=== PATIENT | female | born 1970 | race Caucasian/White ===

== ENCOUNTER → 2019-09-24 17:40 | Outpatient (CLI) | payer OTHER, SELFPAY ==
--- NOTE | ~2019-09-24 | XR_ITS ---
XR hand RT min 3V 09/24/2019 17:54 Indication: Right hand pain Procedure: 4 views right hand Comparison: No prior studies for comparison. Findings: No fracture, subluxation or dislocation. No erosive changes. No significant degenerative change. No r adiopaque foreign bodies. No focal soft tissue abnormality is. Impression: 1: No significant bone or joint abnormality. Reviewed, dictated and finalized at location A. NSED PHYSICAL THERAPIST ASSISTANT Impression: 1: No significant bone or joint abnormality.
== END ==
PROVIDERS: PCP Physician Assistant; Visit Provider Physician Assistant
DX: M79.641 Pain in right hand (principal)
CPT/HCPCS: 73130

== ENCOUNTER 2021-01-27 09:17 | Outpatient (CLI) | payer OTHER, SELFPAY ==
--- NOTE | ~2021-01-27 | US_ITS ---
EXAMINATION: US right upper quadrant EXAM DATE: 01/27/2021 10:01 INDICATION: R74.8 - Abnormal levels of other serum enzymes. TECHNIQUE: Multiple grayscale and Doppler images of the abdomen right upper quadrant were obtained (b y a technologist who performed the scan) and subsequently reviewed. Comparison is made to prior exami nation from 05/14/2018. FINDINGS: The pancreatic head and body are normal in appearance. The pancreatic tail is not visualized. There is echogenic liver parenchyma, hepatic steatosis. No focal liver lesions. There is no evidence of intrahepatic biliary duct dilation. Portal venous flow was seen in the hepatopedal, normal direction and has normal Doppler waveform. Incidental right renal 3 cm cyst. No right-sided hydronephrosis. Common bile duct measures 6 mm, which is normal. The gallbladder fossa is unremarkable. IMPRESSION: 1. Hepatic steatosis. Reviewed, dictated and finalized at location B. IMPRESSION: 1. Hepatic steatosis.
== END 2021-01-27 09:18 | disposition home or self-care (01) ==
PROVIDERS: PCP Family Medicine; Visit Provider Physician Assistant
DX: R74.8 Abnormal levels of other serum enzymes (principal); K76.0 Fatty (change of) liver, not elsewhere classified
CPT/HCPCS: 76705

== ENCOUNTER → 2021-02-13 09:22 | Outpatient (CLI) | payer OTHER, SELFPAY ==
--- NOTE | ~2021-02-13 | XR_ITS ---
XR_CERV2-3V_CR DATE: 02/13/2021 10:00 INDICATION: Neck pain TECHNIQUE: Standing AP, lateral, open-mouth views COMPARISON: None FINDINGS: C1 and C2 are normally aligned and the odontoid process is intact. No fracture or dislocati on or locked facet or prevertebral soft tissue swelling. There is minimal anterolisthesis at C3-4. There is moderate degenerative disc disease and minimal retrolisthesis at C4-5. Moderately severe degenerative disc disease and mild retrolisthesis at C5-6. Moderate degenerative disc disease and mild retrolisthesis at C6-7. Prominent uncovertebral joint spurring is noted on the right at C5-6 IMPRESSION: Multilevel degenerative disc disease, with associated minimal to mild retrolisthesis at C 4-5, C5-6, C6-7 Minimal anterolisthesis at C3-4 Reviewed, dictated and finalized at Location A. Reviewed, dictated and finalized at location A. IMPRESSION: Multilevel degenerative disc disease, with associated minimal to mi ld retrolisthesis at C4-5, C5-6, C6-7 Minimal anterolisthesis at C3-4
== END ==
PROVIDERS: PCP Family Medicine; Visit Provider Physician Assistant
DX: M50.321 Other cervical disc degeneration at C4-C5 level (principal); M43.12 Spondylolisthesis, cervical region
CPT/HCPCS: 72040

== ENCOUNTER 2021-04-28 07:54 | Outpatient (CLI) | payer OTHER, SELFPAY ==
--- NOTE | ~2021-04-28 | MR_ITS ---
EXAMINATION: MR cervical spine wo con EXAM DATE: 04/28/2021 08:39 INDICATION: M54.2 - Cervicalgia. TECHNIQUE: Multi-sequential, multiplanar MR images of the cervical spine were obtained without contra st. Axial T2, axial T2 MERGE sequence. Sagittal T1, T2, T2 fat saturation images also obtained. Cor relation is made to Cervical x-ray 02/13/2021 FINDINGS: There is mild to moderate reversal of midcervical lordosis. There is moderate disc disease at C5-6, mild to moderate at C6-7. There is 2 mm retrolisthesis at these 2 levels. The spinal cord s ignal intensity and intrinsic morphology is normal. Cervicomedullary junction is normal in appearance . There are no suspicious marrow signal abnormalities. Paraspinal soft tissue is unremarkable. Level by level evaluation: C2-C3: Disc does not extend beyond the endplate margin. Uncovertebral joint arthropathy: Mild bilateral. Facet joint arthropathy: Mild bilateral. Neural foraminal stenosis: No stenosis. Central canal stenosis: No stenosis. C3-C4: There is a minimal diffuse disc bulge. Uncovertebral joint arthropathy: Mild to moderate left, mild right. Facet joint arthropathy: Severe left, moderate right. Neural foraminal stenosis: Moderate left, mild right. Central canal stenosis: No stenosis. C4-C5: There is a mild diffuse disc bulge. Uncovertebral joint arthropathy: Moderate left, mild to moderate right. Facet joint arthropathy: Moderate bilateral. Neural foraminal stenosis: Moderate left, mild to moderate right. Central canal stenosis: No stenosis. C5-C6: There is a mild diffuse disc bulge. Uncovertebral joint arthropathy: Severe right, moderate left. Facet joint arthropathy: Moderate right, mild to moderate left. Neural foraminal stenosis: Moderate to severe right, mild to moderate left. Central canal stenosis: Mild. C6-C7: There is a mild diffuse disc bulge. Uncovertebral joint arthropathy: Moderate to severe left, moderate right. Facet joint arthropathy: Moderate bilateral. Neural foraminal stenosis: Moderate to severe left, mild to moderate right. Central canal stenosis: Mild. C7-T1: Disc does not extend beyond the endplate margin. Uncovertebral joint arthropathy: None. Facet joint arthropathy: Mild bilateral. Neural foraminal stenosis: No stenosis. Central canal stenosis: No stenosis. IMPRESSION: 1. Significant mid cervical neural foraminal stenosis as detailed above. Reviewed, dictated and finalized at location B.
== END 2021-04-28 07:55 | disposition home or self-care (01) ==
LOC: ANHIMG 07:56
PROVIDERS: PCP Family Medicine; Visit Provider Physician Assistant
DX: M54.2 Cervicalgia (principal); M48.02 Spinal stenosis, cervical region
CPT/HCPCS: 72141

== ENCOUNTER 2021-11-24 16:51 | Outpatient (CLI) | payer OTHER, SELFPAY ==
--- NOTE | ~2021-11-24 | XR_ITS ---
EXAMINATION: XR chest 2V DATE: 11/24/2021 17:07 INDICATION: Hemoptysis. Wheezing. TECHNIQUE: Frontal and lateral views of the chest were obtained. COMPARISON: Chest 2 views 04/18/2018 FINDINGS: The lungs are hyperexpanded with lucencies in the upper lungs, consistent with emphysema. T here is mild atelectasis in the mid and lower lung zones. There is a mass overlying the left hilum on the frontal view that may be in superior segment left lower lobe on the lateral view. No pleural eff usion or pneumothorax. The heart size is normal. There are surgical clips in the abdomen. IMPRESSION: 1. Left lung mass suspicious for primary bronchogenic carcinoma. Chest CT with contrast is recommende d. 2. Emphysema. Reviewed, dictated and finalized at location A. IMPRESSION: 1. Left lung mass suspicious for primary bronchogenic carcinoma. Chest CT with contrast is recommended. 2. Emphysema.
== END 2021-11-24 16:52 | disposition home or self-care (01) ==
PROVIDERS: PCP Family Medicine; Visit Provider Physician Assistant
DX: J43.9 Emphysema, unspecified (principal); R06.2 Wheezing; R04.2 Hemoptysis
CPT/HCPCS: 71046

== ENCOUNTER 2021-11-29 14:50 | Outpatient (CLI) | payer OTHER, SELFPAY ==
--- NOTE | ~2021-11-29 | CT_ITS ---
EXAMINATION:CT diagnostic chest w con DATE: 11/29/2021 15:06 INDICATION: Lung mass. Hemoptysis. Wheezing. Tobacco use. TECHNIQUE: Computed tomography (CT) of the chest was performed with 75 mL Omnipaque 350 intravenous c ontrast. Automated exposure control and iterative reconstruction technique were employed. The dose-le ngth product (DLP) was 152.49 mGy-cm. COMPARISON: Chest 2 views 11/24/2021 FINDINGS: There is moderate emphysema. There is mild atelectasis bilaterally. There are centrilobular nodules and tree-in-bud opacities in left upper lobe. There is a cavitary 17 mm nodule in left upper lobe. There is left hilar lymphadenopathy with occlusion of the bronchus to apicoposterior segment l eft upper lobe. There is mild mediastinal lymphadenopathy. There are mild groundglass opacities in le ft lower lobe. No pleural effusion. The heart size is normal. No pericardial effusion. There is diffu se hepatic steatosis. Calcifications in the pancreas and pancreatic duct dilatation are consistent wi th chronic pancreatitis. There are cysts in the kidneys measuring up to 2.2 cm on the right. There is a 4 mm stone in right kidney. There is a 3 mm stone in left kidney. There is moderate thoracic spond ylosis. IMPRESSION: 1. 17 mm cavitary nodule in left lung upper lobe, consistent with primary bronchogenic carcinoma. 2. Left hilar and mediastinal lymphadenopathy, consistent with metastatic disease. Consider bronchosc opy for diagnosis. 3. Mild postobstructive pneumonia in left upper lobe. 4. Moderate emphysema. Reviewed, dictated and finalized at location A. IMPRESSION: 1. 17 mm cavitary nodule in left lung upper lobe, consistent with primary bronc hogenic carcinoma. 2. Left hilar and mediastinal lymphadenopathy, consistent with metastatic disea se. Consider bronchoscopy for diagnosis. 3. Mild postobstructive pneumonia in left upper lobe. 4. Moderate emphysema.
== END 2021-11-29 14:51 | disposition home or self-care (01) ==
LOC: ANHIMG 14:51
PROVIDERS: PCP Family Medicine; Visit Provider Physician Assistant
DX: R06.2 Wheezing (principal); R04.2 Hemoptysis; Z72.0 Tobacco use; J43.9 Emphysema, unspecified; J18.9 Pneumonia, unspecified organism
CPT/HCPCS: 71260; Q9967

== ENCOUNTER 2022-05-14 12:40 | Inpatient (IN) | payer OTHER, SELFPAY ==
[2022-05-14] VITALS (17 sets, daily range): BP systolic 108–156; BP diastolic 50–73; PULSE 69–126; RESP 16–24; TEMP 36.5–38.7; O2SAT 94–100
--- NOTE | ~2022-05-14 | XR_ITS ---
EXAMINATION: XR abdomen/kub 1V DATE: 05/15/2022 11:06 INDICATION: Ureteral stent placement. TECHNIQUE: A supine view of the abdomen was obtained. COMPARISON: Abdomen radiographs 11/01/2018 FINDINGS: There are no dilated loops of bowel. Surgical clips in the right upper quadrant are likely from cholecystectomy. There is a phlebolith in left pelvis. There are bilateral internal ureteral stefan nts in expected positions. IMPRESSION: 1. Bilateral internal ureteral stents in expected positions. Reviewed, dictated and finalized at location A.
--- NOTE | ~2022-05-14 | XR_ITS ---
EXAMINATION: XR chest 2V DATE: 05/14/2022 14:04 INDICATION: Fever. TECHNIQUE: Frontal and lateral views of the chest were obtained. COMPARISON: Chest 2 views 11/24/2021, chest CT 05/14/22 FINDINGS: The lungs are hyperexpanded with lucencies, consistent with emphysema. There are airspace o pacities in superior segment left lower lobe. No pleural effusion or pneumothorax. The heart size is normal. There is a right internal jugular port with tip at superior cavoatrial junction. IMPRESSION: 1. Airspace opacities in superior segment left lower lobe, consistent with radiation pneumonitis vers us pneumonia. 2. Emphysema. Reviewed, dictated and finalized at location A. IMPRESSION: 1. Airspace opacities in superior segment left lower lobe, consistent with radi ation pneumonitis versus pneumonia. 2. Emphysema.
--- NOTE | ~2022-05-14 | CT_ITS ---
EXAMINATION: CTA chest PE protocol DATE: 05/14/2022 14:02 INDICATION: Fever. Dyspnea. TECHNIQUE: Computed tomography angiography (CTA) of the chest was performed with 100 mL Omnipaque-350 intravenous contrast timed to evaluate the pulmonary arteries. Coronal maximum intensity projection 3D-reconstructions were created by the technologist. Automated exposure control and iterative reconst ruction technique were employed. The dose-length product was 173.23 mGy-cm. COMPARISON: Chest CT 11/29/2021 FINDINGS: There is moderate emphysema. There is 11 mm nodule in left upper lobe. There are patchy air space and groundglass opacities in the upper lobes and left lower lobe. No pleural effusion. There is a right chest port with tip at superior cavoatrial junction. The heart size is normal. No pericardia l effusion. There is no pulmonary embolus. There is mild mediastinal and left hilar lymphadenopathy. There are changes of cholecystectomy. There is a right internal ureteral stent in expected position. There is a 1.6 cm cyst in right kidney. Calcifications in the pancreas are consistent with chronic pa ncreatitis. There is moderate thoracic spondylosis. IMPRESSION: 1. No pulmonary embolus. 2. 11 mm nodule in left lung upper lobe with improvement from 17 mm on 11/29/2021, consistent with prim destiny bronchogenic carcinoma. 3. Patchy airspace and groundglass opacities in the upper lobes and left lower lobe, consistent with radiation pneumonitis versus pneumonia. 4. Moderate emphysema. 5. Improved mild mediastinal and left hilar lymphadenopathy, consistent with metastatic disease. Reviewed, dictated and finalized at location A. IMPRESSION: 1. No pulmonary embolus. 2. 11 mm nodule in left lung upper lobe with improvement from 17 mm on 11/29/2021 , consistent with primary bronchogenic carcinoma. 3. Patchy airspace and groundglass opacities in the upper lobes and left lower lobe, consistent with radiation pneumonitis versus pneumonia. 4. Moderate emphysema. 5. Improved mild mediastinal and left hilar lymphadenopathy, consistent with me tastatic disease.
--- NOTE | 2022-05-14 13:00 | ECG_ITS ---
Measurements Intervals Edna Rate: 85 P: 54 CO: 152 QRS: 25 QRSD: 92 T: 74 QT: 380 QTc: 452 Interpretive Statements SINUS RHYTHM CANNOT RULE OUT SEPTAL INFARCT, AGE INDETERMINATE BASELINE ARTIFACT- I, II, III, AVR, AVL, AVF, V2-V3 ABNORMAL ECG NO PREVIOUS ECG AVAILABLE FOR COMPARISON Electronically Signed On 05-14-2022 17:49:41 CDT by Jose Saavedra D.O.
--- NOTE | 2022-05-14 13:03 | ED.GENADULT ---
HPI - General Adult General Chief complaint: Fever Stated complaint: Fever Time Seen by Provider: 05/14/22 12:48 History of Present Illness HPI narrative: This is a 51-year-old female presenting to ED with a chief complaint of fever. Patient notes that she has been having a progressive cough over the last several days. This morning she developed fever, chills, difficulty breathing and chest pain. The patient has been treated with Imfinzi which is an immunomodulator for breast cancer. She has also been having dysuria and hematuria as the patient recently underwent renal stent placement for kidney stones. Related Data Home Medications Medication Instructions Recorded Confirmed cholecalciferol (vitamin D3) 50 2,000 unit PO DAILY 09/23/19 02/23/22 mcg (2,000 unit) capsule (Vitamin D3) multivit-iron 18 mg-folic acid 400 tablet PO 09/23/19 02/23/22 mcg-calcium 500 mg-minerals tablet (One-A-Day Womens Formula) Allergies Allergy/AdvReac Type Severity Reaction Status Date / Time morphine Allergy Unknown Hives Verified 02/23/22 14:58 Review of Systems Review of Systems: CONSTITUTIONAL: Denies night sweats. EYES: No eye pain ENT: Denies rhinorrhea CARDIOVASCULAR: Denies palpitations RESPIRATORY: Denies hemoptysis GASTROINTESTINAL: Denies hematemesis GENITOURINARY: Admits hematuria. SKIN: Denies rash MUSCULOSKELETAL: Denies myalgia. NEUROLOGIC: Denies weakness. PSYCHIATRIC: Denies delusions [facility] Past Medical History Medical History Acquired hypothyroidism MAYA (generalized anxiety disorder) HLD (hyperlipidemia) Seborrheic keratosis Spinal stenosis Tobacco use Type 2 diabetes mellitus without complications Family History Family History Father Carcinoma of colon Family history of Alzheimer's disease Family history of malignant neoplasm of urinary bladder Diabetes mellitus Grandparent Carcinoma of colon Family history of malignant neoplasm of brain Diabetes mellitus Mother Family history of malignant neoplasm of ovary Social History Social History Social History: Smoking packs per day: 1 Smoking cigarettes per day: 20.0 Years smoked: 30 Smoking pack-years: 30.00 Smoking status: Current every day smoker Tobacco type: cigarettes Second hand tobacco smoke exposure: Yes Alcohol intake: current Drinks per week: 3 Substance use: never Substance use type: does not use Gender identity (if verbalized by the patient): Female Sexual Orientation (if Verbalized by the Patient): Straight or Heterosexual Exam Narrative: APPEARANCE: patient is lying in bed. She appears very anxious. Head atraumatic. EYES: PERRLA/EOMI, NOSE: Normal no drainage NECK: Supple, Trachea midline RESPIRATORY: Lungs have scattered rhonchi. Patient is tachypneic. CARDIOVASCULAR: S1S2 appreciated ABDOMINAL: Soft, nontender, nondistended, MUSCULOSKELETAl: No obvious deformities NEURO: Alert. Moving 4/4 extremities SKIN:: Warm, dry. Normal color PSYCHIATRIC: Normal affect Course Vital Signs Vital signs: Vital Signs Temperature 101.7 F H 05/14/22 12:42 Pulse Rate 126 H 05/14/22 12:42 Respiratory Rate 20 05/14/22 12:42 Blood Pressure 156/72 H 05/14/22 12:42 Pulse Oximetry 100 05/14/22 12:42 Oxygen Delivery Room Air 05/14/22 12:42 Temperature 98.8 F 05/14/22 16:10 Pulse Rate 75 05/14/22 16:10 Respiratory Rate 20 05/14/22 16:10 Blood Pressure 112/61 05/14/22 16:10 Pulse Oximetry 97 05/14/22 16:10 Oxygen Delivery Room Air 05/14/22 12:42 Medical Decision Making MDM Narrative Medical decision making narrative: This is a 51-year-old female presenting ED a chief complaint of fever. She has multiple risk factors for different serious infections including using immuno
[2022-05-14 13:19] LABS: Basophils Percent Auto 0.3 % (0.2-1.2); Eosinophils Absolute Auto 0.1 K/mm3 (0-0.3); Eosinophils Percent Auto 1.1 % (0-4.4); Hemoglobin 9.9 g/dL (12.0-15.0); Immature Granulocyte Absolute 0.04 K/mm3 (0.00-0.031); Immature Granulocyte Percent A 0.4 % (0-0.5); Lymphocytes Absolute Auto 0.43 K/mm3 (0.9-3.2); Lymphocytes Percent Auto 4.7 % (18.3-44.2); Mean Corpuscular Hemoglobin 33.8 pg (26-34); Mean Corpuscular Volume 102.4 fl (80-100); Mean Platelet Volume 9.8 fl (7.4-10.4); Monocytes Absolute Auto 0.6 K/mm3 (0.1-0.6); Monocytes Percent Auto 6.9 % (2.6-8.5); Neutrophils Percent Auto 86.6 % (45.5-73.1); Platelet Count Result 215 k/mm3 (150-375); Red Blood Count 2.93 M/mm3 (4.2-5.4); Red Cell Distribution Width 12.9 % (11.5-14.5); White Blood Count 9.2 K/mm3 (4.5-10.0)
[2022-05-14 13:30] LABS: INR 1.4; Partial Thromboplastin Time 30.8 SECONDS (22.3-36.8); Prothrombin Time 16.1 Seconds (11.1-14.7)
[2022-05-14 13:33] LABS: Lactic Acid Reflex 2.4 mmol/L (0.7-2.0)
[2022-05-14 13:36] LABS: Add Urine Microscopic? YES; Appearance Urine Cloudy (Clear); Bilirubin Urine 3+ (Negative); Blood Urine 3+ (Negative); Color Urine Red (Yellow); Glucose Urine UA Trace mg/dL (Negative); Ketones Urine 1+ mg/dL (Negative); Leukocyte Esterase Ur 3+ LEU/UL (Negative); Nitrate Urine Positive (Negative); Protein Urine 3+ mg/dL (Negative); Specific Grav Ur 1.015 (1.001-1.035)
[2022-05-14 13:36] LABS: Alanine Aminotransferase 37 U/L (6-35); Albumin Level 3.4 g/dL (3.5-5.1); Alkaline Phosphatase 81 U/L (38-126); Anion Gap 15 mmol/L (8-16); Aspartate Amino Transferase 57 U/L (14-36); Bilirubin,Total 0.3 mg/dL (0.2-1.3); Blood Urea Nitrogen 9 mg/dL (7-17); CRP 3.5 mg/dL (<1.0); Calcium 8.7 mg/dL (8.4-10.2); Carbon Dioxide 20 mmol/L (22-30); Chloride 103 mmol/L (98-107); Estimated CRCL calculation 59 ml/min; Estimated Glomerular Filt Rate > 60; Glucose 284 mg/dL (65-110); Potassium 3.1 mmol/L (3.4-5.0); Sodium 138 mmol/L (137-145)
[2022-05-14 13:38] LABS: RBC Urine >75 /hpf (0-2); WBC Urine >75 /hpf
[2022-05-14] MEDS: LORazepam (*CRX) 0.5 MG TABLET PO (13:40)
[2022-05-14] MEDS: ACETAMINOPHEN 500 MG TABLET 1000 MG PO (13:40)
[2022-05-14 13:46] LABS: NT Pro B Type Natriuretic Pept 409 pg/mL (5-100); Troponin I 0.017 ng/mL (0.000-0.034)
[2022-05-14 14:43] LABS: Glucose Point of Care 149 mg/dl (65-105)
[2022-05-14 15:12] LABS: Lipase < 10 U/L (23-300)
--- NOTE | 2022-05-14 16:04 | PC.NURSE ---
Pt given 1600 ml NS IV per orders
[2022-05-14 16:16] LABS: Reflex Lactic Acid Yes or No Add Lactic
[2022-05-14 16:47] LABS: Lactic Acid 0.6 mmol/L (0.7-2.0)
[2022-05-14 17:45] LABS: SARS-CoV-2 RNA PCR Negative
--- NOTE | 2022-05-14 18:25 | ADMGEN ---
This patient, Joanie Damon, was admitted to 2 Medical Room 261-01. Patient/family oriented to hospital policies and general routines including ID bracelet, bed and alarms, visiting hours, pain management, procedures, bathroom and other care routines, personal items, smoking policy, room service/diet, and visiting hours. Information on how to activate the Rapid Response Team has been discussed. Patient/Family are encouraged to report perceived risks to care and to ask questions if they do not understand what they are told or what they should do.
--- NOTE | 2022-05-14 18:30 | PM.IMHP ---
H&P: HPI History of Present Illness Date/Time: 05/14/22 18:30 Chief Complaint: Fever. Narrative: This is a 51-year-old female smoker with lung cancer receiving immunotherapy, hypertension, hyperlipidemia, hypothyroidism, and anxiety who presented to the emergency department from home for evaluation of a fever. She had lithotripsy with bilateral ureteral stent placement on 05/02/2022 at [facility] for kidney stones. She had been doing okay however she continues to have hematuria and some dysuria. She also has mild low back pain, mostly on the left side, and some discomfort in the suprapubic region. Over the last several days she has developed a cough productive of clear phlegm and she decided to come in today for evaluation as she started to have shakes and chills this morning. Her temperature was 101.7? on arrival to the ER and she was mildly tachycardic, otherwise vital signs were stable. Urine was red and cloudy with 3+ protein, 1+ ketones, 3+ blood, positive nitrates, 3+ leukocyte esterase, and greater than 75 WBC and RBC. Chest CTA was negative for PE but did note patchy airspace and ground-glass opacities in the upper lobes and left lower lobe consistent with radiation pneumonitis versus pneumonia. SARS-CoV-2 by PCR was negative. She is being admitted in this setting for IV antibiotics for urinary tract infection and possible underlying pneumonia as well. She denies headache, sinus congestion, sore throat, sick contacts, chest pain, pleuritic pain, vomiting, and diarrhea. Review of Systems Review of Systems: Twelve systems were reviewed and are negative except for as per HPI. [facility] Past Medical History Medical History (Updated 05/14/22 @ 23:27 by Radha Mckeon PA-C) Bronchogenic carcinoma of left lung Status post chemo radiation. Currently on immunotherapy. Generalized anxiety disorder Hyperlipidemia Hypothyroidism Seborrheic keratosis Spinal stenosis Tobacco use Type 2 diabetes mellitus with hyperglycemia Surgical History Surgical History (Updated 05/14/22 @ 23:24 by Radha Mckeon PA-C) History of cystoscopy History of lithotripsy Family History Family History Father Carcinoma of colon Family history of Alzheimer's disease Family history of malignant neoplasm of urinary bladder Diabetes mellitus Grandparent Carcinoma of colon Family history of malignant neoplasm of brain Diabetes mellitus Mother Family history of malignant neoplasm of ovary Social History Social History Social History: Surrogate medical decision maker: Terry Damon, spouse. Code status: Full code. Smoking packs per day: 1 Smoking cigarettes per day: 20.0 Years smoked: 30 Smoking pack-years: 30.00 Smoking status: Current every day smoker Tobacco type: cigarettes Second hand tobacco smoke exposure: Yes Alcohol intake: current Drinks per week: 3 Substance use: never Substance use type: does not use Additional living arrangements comments: Resides in [place] with her . 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 Spiritual care concerns: No Meds Home Medications and Allergies Home Medications Medication Instructions Recorded Confirmed Type cholecalciferol (vitamin D3) 50 2,000 unit PO DAILY 09/23/19 05/14/22 History mcg (2,000 unit) capsule (Vitamin D3) multivit-iron 18 mg-folic acid 400 1 tablet PO DAILY 09/23/19 05/14/22 History mcg-calcium 500 mg-minerals tablet (One-A-Day Womens Formula) cyclobenzaprine 10 mg tablet 10 mg PO TID PRN muscle spasm #30 01/20/21 05/14/22 Rx tabs losartan 100 mg tablet 100 mg PO DAILY #90 tabs 11/24/21 05/14/22 Rx sertraline 100 mg tablet 150 mg PO DAILY 90 days #135 tabs 11/30/21 05/14/22 Rx rosuvastatin 10 mg tablet 10 mg PO DAILY #90 tabs 12/09/21 05/14/22 Rx bu
[2022-05-14 20:04] LABS: Hemoglobin A1C 5.2 % (<5.7)
[2022-05-14 20:16] LABS: Iron 20 ug/dL (37-170)
[2022-05-14 20:25] LABS: Percent Iron Saturation 10 % (20-50)
[2022-05-14] MEDS: LACTATED RINGERS 1,000 ML 75 ML IV CONT (20:32)
[2022-05-14 20:47] LABS: Thyroid Stimulating Hormone Reflex < 0.015 uIU/mL (0.465-4.68)
[2022-05-14 20:51] LABS: Folic Acid > 20.0 ng/mL (2.76->20)
[2022-05-14] MEDS: POTASSIUM CHLORIDE 20 MEQ PACKET (FOR LIQUID) 40 MEQ PO (20:56)
[2022-05-14 21:25] LABS: Glucose Point of Care 205 mg/dl (65-105)
[2022-05-14 21:41] LABS: Free T4 Free Thyroxine Reflex 2.55 ng/dL (0.78-2.19)
[2022-05-15 05:28] LABS: Hematocrit 26.9 % (37.0-47.0); Hemoglobin 8.8 g/dL (12.0-15.0); Mean Corpuscular HGB Conc 32.7 g/dl (32-36); Mean Corpuscular Hemoglobin 33.8 pg (26-34); Mean Corpuscular Volume 103.5 fl (80-100); Mean Platelet Volume 10.2 fl (7.4-10.4); Platelet Count Result 206 k/mm3 (150-375); Red Cell Distribution Width 12.5 % (11.5-14.5); White Blood Count 6.1 K/mm3 (4.5-10.0)
[2022-05-15 05:43] LABS: Alanine Aminotransferase 29 U/L (6-35); Albumin Level 2.9 g/dL (3.5-5.1); Alkaline Phosphatase 75 U/L (38-126); Anion Gap 10 mmol/L (8-16); Aspartate Amino Transferase 32 U/L (14-36); Bilirubin,Total 0.3 mg/dL (0.2-1.3); Blood Urea Nitrogen 8 mg/dL (7-17); Calcium 8.6 mg/dL (8.4-10.2); Carbon Dioxide 23 mmol/L (22-30); Chloride 108 mmol/L (98-107); Estimated CRCL calculation 77 ml/min; Estimated Glomerular Filt Rate > 60; Glucose 106 mg/dL (65-110); Magnesium 1.2 mg/dL (1.6-2.3); Sodium 141 mmol/L (137-145)
[2022-05-15] MEDS: LEVOTHYROXINE SODIUM 100 MCG TABLET PO (05:50)
[2022-05-15 06:00] VITALS: BP 121/54; PULSE 78; RESP 20; TEMP 36.8; O2SAT 97
[2022-05-15 08:43] LABS: Glucose Point of Care 107 mg/dl (65-105)
[2022-05-15] MEDS: POTASSIUM CHLORIDE 20 MEQ PACKET (FOR LIQUID) 40 MEQ PO (08:48)
[2022-05-15] MEDS: polyethylene glycoL 3350 17 GM POWD.PACK PO (08:48)
[2022-05-15] MEDS: DOCUSATE SODIUM 100 MG CAPSULE PO ×2 (08:48→20:28)
[2022-05-15] MEDS: FERROUS SULFATE 324 MG TABLET PO ×2 (08:49→18:03)
[2022-05-15] MEDS: BENZONATATE 100 MG CAPSULE PO (08:49)
[2022-05-15] MEDS: CHOLECALCIFEROL 1,000 UNITS TABLET 2000 UNITS PO (08:49)
[2022-05-15] MEDS: THERAPEUTIC MULTIVITAMINS/MINERALS TAB (*BKC) 1 TABLET PO (08:49)
[2022-05-15] MEDS: MAGNESIUM SULF 4 GM/WATER100ML 4 GM/100 ML BAG IVPB (08:49)
[2022-05-15] MEDS: ROSUVASTATIN 10 MG TABLET PO (08:49)
[2022-05-15] MEDS: busPIRone HCL 10 MG TABLET PO ×2 (08:49→18:03)
[2022-05-15] MEDS: SERTRALINE HCL 50 MG TABLET 150 MG PO (08:49)
--- NOTE | 2022-05-15 08:49 | WPDURCON ---
Assessment and Plan Assessment and plan (1) Abnormal urinalysis: Code(s): R82.90 - Unspecified abnormal findings in urine Status: Acute Assessment and Plan: Her symptoms and urinalysis are not reliable predictor of infection with the presence of stent. In light of fever this is definitely concerning for infection. She should be placed on broad-spectrum antibiotics and await urine culture and treated appropriately if positive. No urologic intervention required at this time (2) Ureteral stent present: Code(s): Z96.0 - Presence of urogenital implants Status: Acute Assessment and Plan: I will get a KUB to confirm presence of stents (3) History of kidney stones: Code(s): Z87.442 - Personal history of urinary calculi Status: Acute Assessment and Plan: Follow-up with primary urologist upon discharge (4) Fever: Code(s): R50.9 - Fever, unspecified Status: Acute Urology Consult Note HPI Date Seen: 05/15/22 Requesting Physician: Lulú Muniz DO Primary Care Provider: Braden Lewis MD Consult Narrative Narrative: Joanie Damon is a 51 year old female who a few days ago underwent bilateral ureteroscopy and stone extraction by the urologist at [facility]. Yesterday she had a fever and her brought her here to [facility]. She has bilateral stents in place. I read the op note from the outside hospital and the procedure seemed uncomplicated. She is no longer having fevers. She does note flank and suprapubic discomfort. She also notes blood in the urine as well. This is all consistent with presence of bilateral stents. She was admitted the hospital and placed on IV antibiotics. We will await urine culture. Due to the presence of stents her symptomatology and urinalysis is not a reliable indicator of infection. Review of Systems Review of Systems: All systems reviewed & are unremarkable except as noted in HPI and below PMFSH Past Medical History Medical History Bronchogenic carcinoma of left lung Status post chemo radiation. Currently on immunotherapy. Generalized anxiety disorder Hyperlipidemia Hypothyroidism Seborrheic keratosis Spinal stenosis Tobacco use Type 2 diabetes mellitus with hyperglycemia Surgical History Surgical History History of cystoscopy History of lithotripsy Family History Family History Father Carcinoma of colon Family history of Alzheimer's disease Family history of malignant neoplasm of urinary bladder Diabetes mellitus Grandparent Carcinoma of colon Family history of malignant neoplasm of brain Diabetes mellitus Mother Family history of malignant neoplasm of ovary Social History Social History Social History: Surrogate medical decision maker: Terry Damon, spouse. Code status: Full code. Smoking packs per day: 1 Smoking cigarettes per day: 20.0 Years smoked: 30 Smoking pack-years: 30.00 Smoking status: Current every day smoker Tobacco type: cigarettes Second hand tobacco smoke exposure: Yes Alcohol intake: current Drinks per week: 3 Substance use: never Substance use type: does not use Additional living arrangements comments: Resides in [place] with her . 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 Spiritual care concerns: No Meds Home Medications and Allergies Home Medications Medication Instructions Recorded Confirmed Type cholecalciferol (vitamin D3) 50 2,000 unit PO DAILY 09/23/19 05/14/22 History mcg (2,000 unit) capsule (Vitamin D3) multivit-iron 18 mg-folic acid 400 1 tablet PO DAILY 09/23/19 05/14/22 History mcg-calcium 500 mg-minerals tablet (O
--- NOTE | 2022-05-15 10:15 | PM.IMPN ---
Progress Note: A&P Assessment and Plan (1) Sepsis: Code(s): A41.9 - Sepsis, unspecified organism Status: Acute Assessment and Plan: sepsis criteria met with fever, tachycardia, and elevated lactic acid level Source of infection: possible UTI, PNA Quick Qsofa is a 1 Repeat lactic acid level has normalized Blood cultures pending. Urine culture pending WBC 6.1 currently Ceftriaxone and azithromycin started in the ED Hydration in the ED LR at 75ml/hr currently Labs and vital sign stable at this time (2) Urinary tract infection: Code(s): N39.0 - Urinary tract infection, site not specified Status: Acute Assessment and Plan: UA indicates infection Continue ceftriaxone Urology consulted, since stents placed recently Urine culture pending adjust antibiotics to culture results (3) Pneumonia: Code(s): J18.9 - Pneumonia, unspecified organism Status: Acute Assessment and Plan: Chest imaging shows evidence of radiation pneumonitis versus pneumonia. Continue azithromycin & ceftriaxone to cover for possible community-acquired pneumonia progressive cough present sputum culture ordered WBC 6.1 Repeat chest xray in the am (4) Hypokalemia: Code(s): E87.6 - Hypokalemia Status: Acute Assessment and Plan: Current potassium is 3.0 Mag is 1.2 Replacement ordered Continue to trend replace as indicated (5) Elevated liver enzymes: Code(s): R74.8 - Abnormal levels of other serum enzymes Status: Acute Assessment and Plan: Current AST/ALT 32/29 Elevated at admission Appears chronic Continue to trend (6) Ureteral stent present: Code(s): Z96.0 - Presence of urogenital implants Status: Acute Assessment and Plan: Ureteral stent was placed on 05/02/2022 at [facility] persistent hematuria since stent placement Renal function stable Urology consulted thank you for your help Trend urine output (7) Hypothyroidism: Code(s): E03.9 - Hypothyroidism, unspecified Status: Acute Assessment and Plan: Continue levothyroxine at reduced rate of 88mcg TSH <0.015 Free T4 2.55 Will need a repeat in about 6 weeks (8) Bronchogenic carcinoma of left lung: Code(s): C34.92 - Malignant neoplasm of unspecified part of left bronchus or lung Status: Acute Assessment and Plan: Patient receives immunotherapy infusions q.2 weeks. (9) Type 2 diabetes mellitus with hyperglycemia: Code(s): E11.65 - Type 2 diabetes mellitus with hyperglycemia Status: Acute Assessment and Plan: She has lost 30 to 40 pounds since her diagnosis and she does not require medication. Random glucose today was 205 hemoglobin A1c was 5.2%. Continue accu-cheks Adjust therapy as indicated (10) Tobacco use: Code(s): Z72.0 - Tobacco use Status: Acute Assessment and Plan: Patch and gum PRN Education given (11) Anemia: Code(s): D64.9 - Anemia, unspecified Status: Acute Assessment and Plan: H/H 8.8/24.9 Anemia labs iron20, TIBC 202, % sat 10, Ferritin 260, B12 517, Folate >20 Add iron supplementation Seems to be an acute blood loss anemia from hematuria combined with iron deficiency Trend H/H Transfuse as indicated (12) Hypomagnesemia: Code(s): E83.42 - Hypomagnesemia Status: Acute Assessment and Plan: Mg 1.2 Supplement with 4gm once Trend mg Supplement as indicated Time Spent With Patient Time with patient: Greater than 35 minutes Subjective Date/time seen: 05/15/22 1015 Interval history: 05/15/22 1015 Patient stated she is feeling okay today. She really wants her port accessed so they quit sticking her. She denies any chest pain, shortness a breath, nausea, vomiting, diarrhea, consti
[2022-05-15 12:31] LABS: Glucose Point of Care 241 mg/dl (65-105)
[2022-05-15] MEDS: INSULIN ASPART (*BKC) 100 UNITS/ML SUB-Q (12:47)
[2022-05-15] MEDS: CENTRAL LINE FLUSH 10 ML IV PUSH ×2 (13:11→22:29)
[2022-05-15 15:07] VITALS: BP 102/54; PULSE 67; RESP 18; TEMP 36.4; O2SAT 100
[2022-05-15 17:23] LABS: Glucose Point of Care 134 mg/dl (65-105)
[2022-05-15 20:00] VITALS: BP 117/57; PULSE 80; RESP 18; TEMP 36.9; O2SAT 99
[2022-05-15 22:44] LABS: Glucose Point of Care 117 mg/dl (65-105)
[2022-05-16 04:24] VITALS: BP 123/68; PULSE 71; RESP 18; TEMP 36.4; O2SAT 98
[2022-05-16] MEDS: LEVOTHYROXINE SODIUM 88 MCG TABLET PO (05:34)
[2022-05-16] MEDS: CENTRAL LINE FLUSH 10 ML IV PUSH ×2 (05:36→14:39)
[2022-05-16 05:53] LABS: Basophils Percent Auto 0.4 % (0.2-1.2); Eosinophils Absolute Auto 0.3 K/mm3 (0-0.3); Eosinophils Percent Auto 5.5 % (0-4.4); Hematocrit 26.9 % (37.0-47.0); Hemoglobin 8.7 g/dL (12.0-15.0); Immature Granulocyte Absolute 0.02 K/mm3 (0.00-0.031); Immature Granulocyte Percent A 0.4 % (0-0.5); Lymphocytes Absolute Auto 1.12 K/mm3 (0.9-3.2); Lymphocytes Percent Auto 24.7 % (18.3-44.2); Mean Corpuscular HGB Conc 32.3 g/dl (32-36); Mean Corpuscular Hemoglobin 33.3 pg (26-34); Mean Corpuscular Volume 103.1 fl (80-100); Mean Platelet Volume 10.5 fl (7.4-10.4); Monocytes Absolute Auto 0.7 K/mm3 (0.1-0.6); Monocytes Percent Auto 15.9 % (2.6-8.5); Neutrophils Absolute Auto 2.4 K/mm3 (1.3-6.7); Neutrophils Percent Auto 53.1 % (45.5-73.1); Platelet Count Result 232 k/mm3 (150-375); Red Blood Count 2.61 M/mm3 (4.2-5.4); Red Cell Distribution Width 12.3 % (11.5-14.5); White Blood Count 4.5 K/mm3 (4.5-10.0)
[2022-05-16 06:11] LABS: Alanine Aminotransferase 28 U/L (6-35); Albumin Level 2.8 g/dL (3.5-5.1); Alkaline Phosphatase 75 U/L (38-126); Anion Gap 7 mmol/L (8-16); Aspartate Amino Transferase 32 U/L (14-36); Bilirubin,Total 0.2 mg/dL (0.2-1.3); Blood Urea Nitrogen 7 mg/dL (7-17); Calcium 8.6 mg/dL (8.4-10.2); Carbon Dioxide 26 mmol/L (22-30); Chloride 109 mmol/L (98-107); Estimated CRCL calculation 76 ml/min; Estimated Glomerular Filt Rate > 60; Glucose 113 mg/dL (65-110); Magnesium 1.6 mg/dL (1.6-2.3); Potassium 3.1 mmol/L (3.4-5.0); Sodium 142 mmol/L (137-145)
--- NOTE | 2022-05-16 07:24 | P.PNIM_ITS ---
Progress Note: A&P Assessment and Plan (1) Sepsis: Code(s): A41.9 - Sepsis, unspecified organism Status: Acute Assessment and Plan: * sepsis criteria met with fever, tachycardia, and elevated lactic acid level * Source of infection: possible UTI, PNA * Quick Qsofa is a 1 * Repeat lactic acid level has normalized * Blood cultures pending. * Urine culture pending * WBC 6.1 currently * Ceftriaxone and azithromycin started in the ED * Hydration in the ED * LR at 75ml/hr currently * Labs and vital sign stable at this time (2) Urinary tract infection: Code(s): N39.0 - Urinary tract infection, site not specified Status: Acute Assessment and Plan: * UA indicates infection * Continue ceftriaxone * Urology consulted, since stents placed recently * Urine culture pending * adjust antibiotics to culture results (3) Pneumonia: Code(s): J18.9 - Pneumonia, unspecified organism Status: Acute Assessment and Plan: * Chest imaging shows evidence of radiation pneumonitis versus pneumonia. * Continue azithromycin & ceftriaxone to cover for possible community-acquired pneumonia * progressive cough present * sputum culture ordered * WBC 6.1 * Repeat chest xray in the am (4) Hypokalemia: Code(s): E87.6 - Hypokalemia Status: Acute Assessment and Plan: * Current potassium is 3.0 * Mag is 1.2 * Replacement ordered * Continue to trend * replace as indicated (5) Elevated liver enzymes: Code(s): R74.8 - Abnormal levels of other serum enzymes Status: Acute Assessment and Plan: * Current AST/ALT 32/29 * Elevated at admission * Appears chronic * Continue to trend (6) Ureteral stent present: Code(s): Z96.0 - Presence of urogenital implants Status: Acute Assessment and Plan: * Ureteral stent was placed on 05/02/2022 at [facility] * persistent hematuria since stent placement * Renal function stable * Urology consulted thank you for your help * Trend urine output (7) Hypothyroidism: Code(s): E03.9 - Hypothyroidism, unspecified Status: Acute Assessment and Plan: * Continue levothyroxine at reduced rate of 88mcg * TSH <0.015 * Free T4 2.55 * Will need a repeat in about 6 weeks (8) Bronchogenic carcinoma of left lung: Code(s): C34.92 - Malignant neoplasm of unspecified part of left bronchus or lung Status: Acute Assessment and Plan: * Patient receives immunotherapy infusions q.2 weeks. (9) Type 2 diabetes mellitus with hyperglycemia: Code(s): E11.65 - Type 2 diabetes mellitus with hyperglycemia Status: Acute Assessment and Plan: * She has lost 30 to 40 pounds since her diagnosis and she does not require medication. * Random glucose today was 205 * hemoglobin A1c was 5.2%. * Continue accu-cheks * Adjust therapy as indicated (10) Tobacco use: Code(s): Z72.0 - Tobacco use Status: Acute Assessment and Plan: * Patch and gum PRN * Education given (11) Anemia: Code(s): D64.9 - Anemia, unspecified Status: Acute Assessment and Plan: * H/H 8.8/24.9 * Anemia labs iron20, TIBC 202, % sat 10, Ferritin 260, B12 517, Folate >20 * Add iron supplementation * Seems to be an acute blood loss a
--- NOTE | 2022-05-16 07:24 | PM.IMPN ---
Progress Note: A&P Assessment and Plan (1) Sepsis: Code(s): A41.9 - Sepsis, unspecified organism Status: Acute Assessment and Plan: sepsis criteria met with fever, tachycardia, and elevated lactic acid level Source of infection: possible UTI, PNA Quick Qsofa is a 1 Repeat lactic acid level has normalized Blood cultures pending. Urine culture pending WBC 6.1 currently Ceftriaxone and azithromycin started in the ED Hydration in the ED LR at 75ml/hr currently Labs and vital sign stable at this time (2) Urinary tract infection: Code(s): N39.0 - Urinary tract infection, site not specified Status: Acute Assessment and Plan: UA indicates infection Continue ceftriaxone Urology consulted, since stents placed recently Urine culture pending adjust antibiotics to culture results (3) Pneumonia: Code(s): J18.9 - Pneumonia, unspecified organism Status: Acute Assessment and Plan: Chest imaging shows evidence of radiation pneumonitis versus pneumonia. Continue azithromycin & ceftriaxone to cover for possible community-acquired pneumonia progressive cough present sputum culture ordered WBC 6.1 Repeat chest xray in the am (4) Hypokalemia: Code(s): E87.6 - Hypokalemia Status: Acute Assessment and Plan: Current potassium is 3.0 Mag is 1.2 Replacement ordered Continue to trend replace as indicated (5) Elevated liver enzymes: Code(s): R74.8 - Abnormal levels of other serum enzymes Status: Acute Assessment and Plan: Current AST/ALT 32/29 Elevated at admission Appears chronic Continue to trend (6) Ureteral stent present: Code(s): Z96.0 - Presence of urogenital implants Status: Acute Assessment and Plan: Ureteral stent was placed on 05/02/2022 at [facility] persistent hematuria since stent placement Renal function stable Urology consulted thank you for your help Trend urine output (7) Hypothyroidism: Code(s): E03.9 - Hypothyroidism, unspecified Status: Acute Assessment and Plan: Continue levothyroxine at reduced rate of 88mcg TSH <0.015 Free T4 2.55 Will need a repeat in about 6 weeks (8) Bronchogenic carcinoma of left lung: Code(s): C34.92 - Malignant neoplasm of unspecified part of left bronchus or lung Status: Acute Assessment and Plan: Patient receives immunotherapy infusions q.2 weeks. (9) Type 2 diabetes mellitus with hyperglycemia: Code(s): E11.65 - Type 2 diabetes mellitus with hyperglycemia Status: Acute Assessment and Plan: She has lost 30 to 40 pounds since her diagnosis and she does not require medication. Random glucose today was 205 hemoglobin A1c was 5.2%. Continue accu-cheks Adjust therapy as indicated (10) Tobacco use: Code(s): Z72.0 - Tobacco use Status: Acute Assessment and Plan: Patch and gum PRN Education given (11) Anemia: Code(s): D64.9 - Anemia, unspecified Status: Acute Assessment and Plan: H/H 8.8/24.9 Anemia labs iron20, TIBC 202, % sat 10, Ferritin 260, B12 517, Folate >20 Add iron supplementation Seems to be an acute blood loss anemia from hematuria combined with iron deficiency Trend H/H Transfuse as indicated (12) Hypomagnesemia: Code(s): E83.42 - Hypomagnesemia Status: Acute Assessment and Plan: Mg 1.2 Supplement with 4gm once Trend mg Supplement as indicated Subjective Date/time seen: 05/16/22 07:24 Exam Narrative: Const: General: cooperative, healthy appearing, comfortable, no acute distress, well developed, alert, awake and Physically active Nutritional Appearance: average body habitus and well nourished Orientation/consciousness: oriented to person, oriented to place, orie
[2022-05-16 08:35] VITALS: O2SAT 94
[2022-05-16] MEDS: CHOLECALCIFEROL 1,000 UNITS TABLET 2000 UNITS PO (08:37)
[2022-05-16] MEDS: busPIRone HCL 10 MG TABLET PO (08:37)
[2022-05-16] MEDS: THERAPEUTIC MULTIVITAMINS/MINERALS TAB (*BKC) 1 TABLET PO (08:37)
[2022-05-16] MEDS: FERROUS SULFATE 324 MG TABLET PO (08:37)
[2022-05-16] MEDS: DOCUSATE SODIUM 100 MG CAPSULE PO (08:37)
[2022-05-16] MEDS: ROSUVASTATIN 10 MG TABLET PO (08:38)
[2022-05-16] MEDS: polyethylene glycoL 3350 17 GM POWD.PACK PO (08:38)
[2022-05-16] MEDS: SERTRALINE HCL 50 MG TABLET 150 MG PO (08:38)
[2022-05-16 09:21] LABS: Glucose Point of Care 99 mg/dl (65-105)
[2022-05-16] MEDS: POTASSIUM CHLORIDE 20 MEQ PACKET (FOR LIQUID) 40 MEQ PO (09:35)
[2022-05-16 10:18] VITALS: BMI 17.5
[2022-05-16 12:19] LABS: Glucose Point of Care 158 mg/dl (65-105)
--- NOTE | 2022-05-16 13:48 | PM.DS ---
DS: Admitting Diagnosis Discharge Date 05/16/22 16:05 Admitting Diagnosis Sepsis complicated UTI hematuria pneumonia hypokalemia DS: Discharge Diagnosis Discharge Diagnosis (1) Sepsis: Qualifiers: Sepsis acute organ dysfunction status: without acute organ dysfunction Sepsis type: sepsis due to unspecified organism Qualified Code(s): A41.9 - Sepsis, unspecified organism Code(s): A41.9 - Sepsis, unspecified organism Status: Acute (2) Urinary tract infection: Qualifiers: Urinary tract infection type: acute pyelonephritis Qualified Code(s): N10 - Acute pyelonephritis Code(s): N39.0 - Urinary tract infection, site not specified Status: Acute (3) Ureteral stent present: Code(s): Z96.0 - Presence of urogenital implants Status: Acute (4) Pneumonia: Qualifiers: Laterality: bilateral Lung location: upper lobe of lung Pneumonia type: due to unspecified organism Qualified Code(s): J18.9 - Pneumonia, unspecified organism Code(s): J18.9 - Pneumonia, unspecified organism Status: Acute (5) Hypokalemia: Code(s): E87.6 - Hypokalemia Status: Acute (6) Hypomagnesemia: Code(s): E83.42 - Hypomagnesemia Status: Acute (7) Elevated liver enzymes: Code(s): R74.8 - Abnormal levels of other serum enzymes Status: Chronic (8) Bronchogenic carcinoma of left lung: Code(s): C34.92 - Malignant neoplasm of unspecified part of left bronchus or lung Status: Chronic Assessment and Plan: On immunotherapy (9) Type 2 diabetes mellitus with hyperglycemia: Qualifiers: Diabetes mellitus jail insulin use: without jail use Qualified Code(s): E11.65 - Type 2 diabetes mellitus with hyperglycemia Code(s): E11.65 - Type 2 diabetes mellitus with hyperglycemia Status: Chronic (10) Tobacco use: Code(s): Z72.0 - Tobacco use Status: Chronic (11) Anemia: Qualifiers: Anemia type: unspecified type Qualified Code(s): D64.9 - Anemia, unspecified Code(s): D64.9 - Anemia, unspecified Status: Acute (12) Hypothyroidism: Code(s): E03.9 - Hypothyroidism, unspecified Status: Acute DS: Summary Hospital Course Reason for hospitalization: fever Hospital Course: Joanie [place] is a 51-year-old female with lung cancer receiving immunotherapy, hypertension, hyperlipidemia, hypothyroidism, tobacco dependence and anxiety who presented to the emergency department from home for evaluation of a fever. She had lithotripsy with bilateral ureteral stent placement on 05/02/2022 at [facility] for kidney stones. She had been doing well, however, she continued to have hematuria and c/o dysuria. She also had mild low back pain, mostly on the left side, and some discomfort in the suprapubic region. Several days prior to admission, she developed a productive cough with clear sputum, prompting her visit to the ED. She started to have shakes and chills the morning of mission. Her temperature was 101.7? upon arrival to the ED and she was mildly tachycardic. Vitals were otherwise stable. Urine was red and cloudy with 3+ protein, 1+ ketones, 3+ blood, positive nitrates, 3+ leukocyte esterase, and greater than 75 WBC and RBC. Chest CTA was negative for PE but did note patchy airspace and ground-glass opacities in the upper lobes and left lower lobe consistent with radiation pneumonitis versus pneumonia. SARS-CoV-2 by PCR was negative. She denied headache, sinus congestion, sore throat, sick contacts, chest pain, pleuritic pain, vomiting, and diarrhea. She was admitted to the medical floor for urology evaluation and IV antibiotics for urinary tract infection and possible underlying pneumonia. Urology was consulted and KUB demonstrated accurate placement of stents. She was treated with Rocephin 1 gram IV hours and Azithromycin 500 mg IV Q24
[2022-05-16 14:00] VITALS: BP 109/60; PULSE 70; RESP 14; TEMP 36.7; O2SAT 100
[2022-05-16] MEDS: AZITHROMYCIN 250 MG TABLET 500 MG PO (14:38)
[2022-05-16] MEDS: CEFDINIR 300 MG CAPSULE PO (14:38)
[2022-05-16] MEDS: HEPARIN SODIUM LOCK FLUSH 500 UNITS/5 ML SYRINGE IV PUSH (16:51)
[2022-05-17 20:24] LABS: Mycoplasma IgM Antibody Titer 102 U/mL (<770)
[2022-05-18 00:10] LABS: Pneumococcal Antigen Urine Not Detected (Not Detected)
[2022-05-18 17:25] LABS: Legionella pneumophila Ag Ur Not Detected (Not Detected)
== END 2022-05-16 17:25 | disposition home or self-care (01) | DRG 871 ==
LOC: ANHED 16:24 → ANH2MED 17:33
PROVIDERS: Nurse Practitioner; Physician Assistant; Admitting Provider Student in an Organized Health Care Education/Training Program; Emergency Provider Emergency Medicine; PCP Family Medicine; Visit Provider Nurse Practitioner Family
DX: A41.9 Sepsis, unspecified organism (principal); J18.9 Pneumonia, unspecified organism; J70.0 Acute pulmonary manifestations due to radiation; C34.92 Malignant neoplasm of unspecified part of left bronchus or lung; D62 Acute posthemorrhagic anemia; N39.0 Urinary tract infection, site not specified; Z20.822 Contact with and (suspected) exposure to COVID-19; E87.6 Hypokalemia; R74.8 Abnormal levels of other serum enzymes; E03.9 Hypothyroidism, unspecified; F17.210 Nicotine dependence, cigarettes, uncomplicated; D50.9 Iron deficiency anemia, unspecified; E83.42 Hypomagnesemia; E78.5 Hyperlipidemia, unspecified; Z96.0 Presence of urogenital implants; Z87.442 Personal history of urinary calculi; F41.1 Generalized anxiety disorder; M48.00 Spinal stenosis, site unspecified; F41.9 Anxiety disorder, unspecified
CPT/HCPCS: 36415; 71046; 71275; 74018; 80053; 81001; 82607; 82728; 82746; 82948; 83036; 83540; 83550; 83605; 83690; 83735; 83880; 84439; 84443; 84484; 85025; 85027; 85610; 85730; 86140; 86738; 87040; 87086; 87449; 87899; 93005; 96361; 96365; 99285; A9270; C9803; J0456; J0696; J1642; J1815; J3475; J7120; Q9967; U0003; U0005

== ENCOUNTER 2023-08-04 17:18 | Outpatient (CLI) | payer OTHER, SELFPAY ==
--- NOTE | ~2023-08-04 | XR_ITS ---
EXAMINATION: XR_[id number]_CR DATE: 08/04/2023 17:45 INDICATION: Neck pain. TECHNIQUE: 3 views of cervical spine were obtained. COMPARISON: Cervical spine radiograph 02/13/2021 FINDINGS: There is 2 mm anterolisthesis of C3 on C4 and C4 and C5 and 2 mm retrolisthesis of C5 on C6 and C6 on C7. There is 6 degrees levocurvature of cervical spine. Vertebral body heights are normal. There is moderately decreased disc height at C4-C5, severely decreased disc height at C5-C6, and mod erately decreased disc height at C6-C7. There is multilevel uncovertebral joint osteoarthritis, sever e on the left at C4-C5 and on the right at C5-C6. There is multilevel facet joint osteoarthritis, sev ere on the left at C3-C4. There is mild central canal stenosis at C4-C5, C5-C6, and C6-C7. No prevert ebral soft tissue swelling. IMPRESSION: 1. Severe cervical spondylosis. Reviewed, dictated and finalized at location E. ERENCE MANAGER
--- NOTE | ~2023-08-04 | XR_ITS ---
EXAMINATION: XR shoulder RT min 2V DATE: 08/04/2023 17:45 INDICATION: Right arm pain. Neck pain. TECHNIQUE: 4 views of right shoulder were obtained. COMPARISON: None. FINDINGS: Bone alignment is normal. No fracture. There is severe osteoarthritis of acromioclavicular joint and mild osteoarthritis of glenohumeral joint. There is a right internal jugular port with tip at superior cavoatrial junction. IMPRESSION: 1. Polyarticular osteoarthritis. Reviewed, dictated and finalized at location E. RBER OPERATOR
== END 2023-08-04 17:19 | disposition home or self-care (01) ==
LOC: ANHIMG 17:22
PROVIDERS: PCP Family Medicine; Visit Provider Physician Assistant
DX: M43.02 Spondylolysis, cervical region (principal); M19.011 Primary osteoarthritis, right shoulder
CPT/HCPCS: 72040; 73030

== ENCOUNTER 2023-08-31 10:38 | Outpatient (CLI) | payer OTHER, SELFPAY ==
--- NOTE | ~2023-08-31 | MR_ITS ---
MRI of the cervical spine Clinical History: Spondylosis Technique: Axial T2-weighted and gradient images, and sagittal T1-weighted, T2-weighted, and STIR [place]ak[place] ges were acquired. COMPARISON: 04/28/2021 Findings: There is reversal normal cervical lordosis, similar to prior exam. No acute fracture or sub luxation evident. There are reactive marrow signal changes due to degenerative disc disease, most not ably about the C4-C5 disc space. At C2-C3, there is no disc bulge or herniation. No spinal canal stenosis, cord compression or neural foraminal narrowing. At C3-C4, there is minimal disc osteophyte complex. There is prominent left facet arthropathy with le ft neural foraminal narrowing. Right neural foramen preserved. No central canal stenosis or cord comp ression. At C4-C5, there is severe degenerative disc narrowing. Disc osteophyte complex results in mild to mod erate canal stenosis and probable minimal cord compression. There is severe right-sided facet arthrop athy with severe right neural foraminal narrowing. There is mild left facet arthropathy with probable left neural foraminal narrowing. At C5-C6, disc osteophyte complex results in mild canal stenosis and flattening the ventral cord. The re is probable mild bilateral neural foraminal narrowing, right worse than left. At C6-C7, there is mild disc osteophyte complex, without helena canal stenosis or cord compression. Th ere is bilateral neural foraminal narrowing, left worse than right. Paravertebral soft tissues are unremarkable. Impression: Moderate to advanced degenerative spondylosis, as detailed above, with mild reversal normal cervical lordosis. Reviewed, dictated and finalized at [facility]. DER AND CHIEF EXECUTIVE OFFICER Impression: Moderate to advanced degenerative spondylosis, as detailed above, with mild rev ersal normal cervical lordosis.
--- NOTE | ~2023-08-31 | MR_ITS ---
MRI of the right shoulder Technique: Axial proton-density fat-sat images, coronal proton density fat-sat and T2 fat-sat images, and sagittal T1-weighted and T2 fat-sat images were acquired. Clinical History: Pain Findings: There is moderate AC joint degenerative change. There is subacromial spur with bony product kenyetta change of the distal clavicle. Coracoclavicular, coracoacromial, and coracohumeral ligaments are intact. Supraspinatus and infraspinatus tendons are intact, without partial or full-thickness tear. Subscapul elvira tendon is intact. Tendon of long head of the biceps is intact. No labral tear identified. Inferior glenohumeral ligament is intact. No degenerative change or effusion of the glenohumeral join t. No fluid distention of the subacromial/subdeltoid bursa. No muscle atrophy or edema. Impression: Moderate to advanced AC joint degenerative change. Probable mild impingement upon the supraspinatus t endon, without partial or full-thickness rotator cuff tear at this time. Reviewed, dictated and finalized at [facility]. BUYER Impression: Moderate to advanced AC joint degenerative change. Probable mild impingement up on the supraspinatus tendon, without partial or full-thickness rotator cuff tea r at this time.
== END 2023-08-31 10:39 ==
LOC: GOSHIMG 10:39
PROVIDERS: PCP Family Medicine; Visit Provider Physician Assistant Medical
DX: M47.812 Spondylosis without myelopathy or radiculopathy, cervical region (principal); M19.011 Primary osteoarthritis, right shoulder
CPT/HCPCS: 72141; 73221

== ENCOUNTER 2023-10-21 15:32 | Emergency (ER) | payer OTHER, SELFPAY ==
--- NOTE | ~2023-10-21 | XR_ITS ---
EXAMINATION: XR chest 2V Exam Date/Time: 10/21/2023 15:44 GATE ATTENDANT HISTORY: COUGH, HISTORY OF LUNG CANCER Comparison: 05/14/2022. RESULT: Lines, tubes, and devices: None. Lungs and pleura: Emphysematous change and architectural distortion, otherwise clear. Cardiomediastinal silhouette: Stable. Other: No acute osseous or upper abdominal finding. IMPRESSION: No acute cardiopulmonary process. Reviewed, dictated and finalized at location K. ATTENDANT
--- NOTE | 2023-10-21 15:33 | ED.URI ---
HPI - URI/Sore Throat General Chief Complaint: Upper Respiratory Infection Stated Complaint: CONGESTION Time Seen by Provider: 10/21/23 15:33 Source: patient Mode of arrival: ambulatory Limitations: no limitations History of Present Illness HPI Narrative: Louis pearl is a 53-year-old female patient presenting to the clinic today with complaints of cough and chest congestion x2 days. She reports she has had some chills no known fever. She recently been treated for lung cancer is on immunotherapy at this time. States she does not get another CT of her chest until November 24 as well as an MRI of her brain remove follow-up her oncologist remove testing is completed. MD elicited complaint: sore throat and nasal congestion Related Data Home Medications Medication Instructions Recorded Confirmed cholecalciferol (vitamin D3) 50 2,000 unit PO DAILY 09/23/19 10/21/23 mcg (2,000 unit) capsule (Vitamin D3) multivit-iron 18 mg-folic acid 400 1 tablet PO DAILY 09/23/19 10/21/23 mcg-calcium 500 mg-minerals tablet (One-A-Day Womens Formula) Allergies Allergy/AdvReac Type Severity Reaction Status Date / Time morphine Allergy Unknown Hives Verified 10/21/23 15:40 Review of Systems Review of Systems: Pertinent positives per HPI. Patient denies any fever, chills, rash, headache, visual changes, dizziness, chest pain, palpitations, nausea, vomiting, diarrhea, constipation, abdominal pain, or any urinary issues. [facility] Past Medical History Medical History Bronchogenic carcinoma of left lung Status post chemo radiation. Currently on immunotherapy. Generalized anxiety disorder Humerus fracture Hyperlipidemia Hypothyroidism Lung cancer diagnosed 12/17/2022 Seborrheic keratosis Spinal stenosis Tobacco use Type 2 diabetes mellitus with hyperglycemia Surgical History Surgical History History of cystoscopy History of lithotripsy Family History Family History Father Carcinoma of colon Family history of Alzheimer's disease Family history of malignant neoplasm of urinary bladder Diabetes mellitus Grandparent Carcinoma of colon Family history of malignant neoplasm of brain Diabetes mellitus Mother Family history of malignant neoplasm of ovary Social History Social History Social History: Surrogate medical decision maker: Terry Damon, spouse. Code status: Full code. Smoking packs per day: 0.25 Smoking cigarettes per day: 5.0 Years smoked: 30 Smoking pack-years: 7.50 Smoking status: Current every day smoker Tobacco type: cigarettes Second hand tobacco smoke exposure: Yes Alcohol intake: current Drinks per week: 3 Alcohol use details: occasional Substance use: never Substance use type: does not use Lack of Transportation: No Lack of Food: Never True Current Housing: I Have Housing Concerned About Future Housing: No Difficulty Paying Gas/Electric Bills: No Difficulty Paying for Meds: No Currently Unemployed: No Education: High School Diploma/GED Difficulty w/ Childcare or Family Care: No Living arrangements: with family Additional living arrangements comments: Resides in [place] with her . 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 Spiritual care concerns: No Comments At the time of my signature, I reviewed and agree with the nursing past medical, surgical, social, and family history. There is no relevant family history pertinent to the patient complaint. Exam Narrative: General: Well-developed, well nourished, in no apparent distress Head: Normocephalic, atraumatic Eyes: Pupils equally round and reactive to light bilaterally, EOM intact, sc
[2023-10-21 15:45] VITALS: BP 115/75; PULSE 89; RESP 16; TEMP 36.6; O2SAT 97
== END 2023-10-21 16:15 | disposition home or self-care (01) ==
PROVIDERS: Emergency Provider Nurse Practitioner Family; PCP Family Medicine
DX: J40 Bronchitis, not specified as acute or chronic (principal); Z20.822 Contact with and (suspected) exposure to COVID-19; C34.92 Malignant neoplasm of unspecified part of left bronchus or lung; F17.210 Nicotine dependence, cigarettes, uncomplicated; E78.5 Hyperlipidemia, unspecified; E03.9 Hypothyroidism, unspecified; M48.00 Spinal stenosis, site unspecified; E11.9 Type 2 diabetes mellitus without complications
CPT/HCPCS: 71046; 87426; 87804; 99213; G0463

== ENCOUNTER 2023-12-18 07:57 | Outpatient (NON) | payer OTHER, SELFPAY | END 2023-12-18 07:58 | disposition home or self-care (01) | PROVIDERS: PCP Family Medicine; Visit Provider Internal Medicine Gastroenterology | DX: Z12.11 Encounter for screening for malignant neoplasm of colon (principal); D12.5 Benign neoplasm of sigmoid colon | CPT/HCPCS: 88305 ==

== ENCOUNTER 2023-12-18 08:29 | Day surgery (SDC) | payer OTHER, SELFPAY ==
[2023-11-29 10:16] VITALS: BMI 20.8
[2023-12-01 13:52] VITALS: BMI 20.5
--- NOTE | 2023-12-17 16:27 | PM.HPGS ---
History of Present Illness History of Present Illness Consent: Risks, benefits, and alternatives have been discussed and questions answered. Patient agrees to proceed with procedure. Chief complaint: Family history of colon cancer Narrative: Joanie Damon is a 53 year old female who is referred for colon cancer screening. Her father had colon cancer. Review of Systems Review of Systems: All systems reviewed & are unremarkable except as noted in HPI and below PMFSH Past Medical History Medical History Anxiety Bronchogenic carcinoma of left lung Status post chemo radiation. Currently on immunotherapy. Emphysema lung Generalized anxiety disorder HTN (hypertension) Humerus fracture Hyperlipidemia Hypothyroidism Lung cancer diagnosed 12/17/2022 Seborrheic keratosis Spinal stenosis Tobacco use Type 2 diabetes mellitus with hyperglycemia Type 2 diabetes mellitus without complications Surgical History Surgical History History of cystoscopy History of lithotripsy Family History Family History Father Carcinoma of colon Family history of Alzheimer's disease Family history of malignant neoplasm of urinary bladder Diabetes mellitus Grandparent Carcinoma of colon Family history of malignant neoplasm of brain Diabetes mellitus Mother Family history of malignant neoplasm of ovary Social History Social History Social History: Surrogate medical decision maker: Terry Damon, spouse. Code status: Full code. Smoking packs per day: 0.25 Smoking cigarettes per day: 5.0 Years smoked: 30 Smoking pack-years: 7.50 Smoking status: Current every day smoker Tobacco type: cigarettes Second hand tobacco smoke exposure: Yes Alcohol intake: current Drinks per week: 10 Alcohol use details: occasional Substance use: never Substance use type: does not use Lack of Transportation: No Lack of Food: Never True Current Housing: I Have Housing Concerned About Future Housing: No Difficulty Paying Gas/Electric Bills: No Difficulty Paying for Meds: No Currently Unemployed: No Education: High School Diploma/GED Difficulty w/ Childcare or Family Care: No Living arrangements: with family Additional living arrangements comments: Resides in [place] with her . 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 Spiritual care concerns: No Meds Home Medications and Allergies Home Medications Medication Instructions Recorded Confirmed Type cholecalciferol (vitamin D3) 50 2,000 unit PO DAILY 09/23/19 12/18/23 History mcg (2,000 unit) capsule (Vitamin D3) multivit-iron 18 mg-folic acid 400 1 tablet PO DAILY 09/23/19 12/18/23 History mcg-calcium 500 mg-minerals tablet (One-A-Day Womens Formula) ferrous sulfate 325 mg (65 mg 325 mg PO .every other day #30 tabs 09/13/22 12/18/23 Rx iron) tablet,delayed release sertraline 100 mg tablet 150 mg PO DAILY 90 days #135 tabs 07/19/23 12/18/23 Rx amlodipine 5 mg tablet 5 mg PO DAILY #90 tabs 10/16/23 12/18/23 Rx albuterol sulfate 90 mcg/actuation 2 puff inhalation Q4-6H PRN 10/21/23 12/18/23 Rx aerosol inhaler shortness of breath or wheezing 30 days #8.5 grams lorazepam 0.5 mg tablet 0.5 mg PO BID PRN anxiety #60 tabs 11/08/23 12/18/23 Rx losartan 100 mg tablet 100 mg PO DAILY #90 tabs 11/27/23 12/18/23 Rx buspirone 10 mg tablet 10 mg PO BID 12/01/23 12/18/23 History levothyroxine 300 mcg tablet 300 mcg PO DAILY 12/01/23 12/18/23 History potassium chloride 20 mEq 20 meq PO DAILY 12/01/23 12/18/23 History tablet,extended release(part/cryst) (Klor-Con M) varenicline 1 mg tablet (Chantix) 1 mg PO BID 12/01/23 12/18/23 History Allergie
--- NOTE | 2023-12-18 07:19 | WPDANESEPPF ---
Anes - Initial Pre Proc Eval Procedure: Operation Date: 12/18/23 11:00 Proposed Procedures p Diagnostic Colonoscopy - Troy Ortiz MD Date/Time: 12/18/23 07:19 Surgeon: Troy Ortiz MD Pre Op Diagnosis: Family history of colon cancer Patient Data Age: 53 Gender: F Height: 1.75 m Weight: 63 kg Allergies Allergy/AdvReac Type Severity Reaction Status Date / Time morphine Allergy Unknown Hives Verified 12/18/23 09:39 Home Medications Medication Instructions Recorded Confirmed Type cholecalciferol (vitamin D3) 50 2,000 unit PO DAILY 09/23/19 12/18/23 History mcg (2,000 unit) capsule (Vitamin D3) multivit-iron 18 mg-folic acid 400 1 tablet PO DAILY 09/23/19 12/18/23 History mcg-calcium 500 mg-minerals tablet (One-A-Day Womens Formula) ferrous sulfate 325 mg (65 mg 325 mg PO .every other day #30 tabs 09/13/22 12/18/23 Rx iron) tablet,delayed release sertraline 100 mg tablet 150 mg PO DAILY 90 days #135 tabs 07/19/23 12/18/23 Rx amlodipine 5 mg tablet 5 mg PO DAILY #90 tabs 10/16/23 12/18/23 Rx albuterol sulfate 90 mcg/actuation 2 puff inhalation Q4-6H PRN 10/21/23 12/18/23 Rx aerosol inhaler shortness of breath or wheezing 30 days #8.5 grams lorazepam 0.5 mg tablet 0.5 mg PO BID PRN anxiety #60 tabs 11/08/23 12/18/23 Rx losartan 100 mg tablet 100 mg PO DAILY #90 tabs 11/27/23 12/18/23 Rx buspirone 10 mg tablet 10 mg PO BID 12/01/23 12/18/23 History levothyroxine 300 mcg tablet 300 mcg PO DAILY 12/01/23 12/18/23 History potassium chloride 20 mEq 20 meq PO DAILY 12/01/23 12/18/23 History tablet,extended release(part/cryst) (Klor-Con M) varenicline 1 mg tablet (Chantix) 1 mg PO BID 12/01/23 12/18/23 History Patient hx anesthesia problems: none Family hx anesthesia problems: none Results Review: All pre-operative results and documents have been reviewed as part of the pre-operative evaluation. [facility] Past Medical History Medical History (Updated 12/18/23 @ 07:22 by Jimenez Grimes DO) Anxiety Bronchogenic carcinoma of left lung Status post chemo radiation. Currently on immunotherapy. Emphysema lung Generalized anxiety disorder HTN (hypertension) Humerus fracture Hyperlipidemia Hypothyroidism Lung cancer diagnosed 12/17/2022 Seborrheic keratosis Spinal stenosis Tobacco use Type 2 diabetes mellitus with hyperglycemia Type 2 diabetes mellitus without complications Surgical History Surgical History History of cystoscopy History of lithotripsy Family History Family History Father Carcinoma of colon Family history of Alzheimer's disease Family history of malignant neoplasm of urinary bladder Diabetes mellitus Grandparent Carcinoma of colon Family history of malignant neoplasm of brain Diabetes mellitus Mother Family history of malignant neoplasm of ovary Social History Social History Social History: Surrogate medical decision maker: Terry Damon, spouse. Code status: Full code. Smoking packs per day: 0.25 Smoking cigarettes per day: 5.0 Years smoked: 30 Smoking pack-years: 7.50 Smoking status: Current every day smoker Tobacco type: cigarettes Second hand tobacco smoke exposure: Yes Alcohol intake: current Drinks per week: 10 Alcohol use details: occasional Substance use: never Substance use type: does not use Lack of Transportation: No Lack of Food: Never True Current Housing: I Have Housing Concerned About Future Housing: No Difficulty Paying Gas/Electric Bills: No Difficulty Paying for Meds: No Currently Unemployed: No Education: High School Diploma/GED Difficulty w/ Childcare or Family Care: No Living arrangements: with family Additional living arrangements comments: Resides in [place] with her allyn
[2023-12-18 09:42] VITALS: BP 132/91; PULSE 90; RESP 16; TEMP 36.7; O2SAT 100
[2023-12-18] MEDS: LACTATED RINGERS 1,000 ML 150 ML IV CONT (09:55)
[2023-12-18 11:29] VITALS: BP 117/65; PULSE 74; RESP 18; O2SAT 97
[2023-12-18 11:39] VITALS: BP 131/63; PULSE 69; RESP 16; O2SAT 96
[2023-12-18 11:49] VITALS: BP 111/76; PULSE 64; RESP 16; O2SAT 100
--- NOTE | 2023-12-18 12:59 | WPDANESPN ---
Anes - Prog Note Post-Op Date/Time: 12/18/23 12:59 Cardiovascular status: normal Respiratory status: normal Airway patency: baseline Mental status: baseline Post-Op hydration status: normal Vital Signs: Last Vital Signs Temp 36.7 C 12/18/23 09:42 Pulse 64 12/18/23 11:49 Resp 16 12/18/23 11:49 BP 111/76 12/18/23 11:49 Pulse Ox 100 12/18/23 11:49 O2 Del Method Room Air 12/18/23 11:49 Pain Score (VAS): 0 I/O: Intake & Output 12/17/23 12/18/23 12/18/23 23:59 07:59 15:59 Intake Total 400 Balance 400 Post-procedural complaints: none Patient Feedback: Patient satisfied with anesthetic care. Other Findings: Patient vital signs back to baseline. Patient denies nausea and vomiting. Patient's pain under control. Patient OK for discharge.
== END 2023-12-18 12:05 | disposition home or self-care (01) ==
PROVIDERS: PCP Family Medicine; Visit Provider Internal Medicine Gastroenterology
PROC: 0DJD8ZZ Inspection of Lower Intestinal Tract, Via Natural or Artificial Opening Endoscopic (ICD-10-PCS; CPT 45378; principal; 2023-12-18 11:00)
DX: Z12.11 Encounter for screening for malignant neoplasm of colon (principal); D12.5 Benign neoplasm of sigmoid colon; K64.8 Other hemorrhoids
CPT/HCPCS: 45385; 45381

== ENCOUNTER 2024-03-23 12:37 | Emergency (ER) | payer OTHER, SELFPAY ==
--- NOTE | ~2024-03-23 | XR_ITS ---
EXAMINATION: XR chest 2V 03/23/2024 13:35 INDICATION: Cough for one month PROCEDURE: 2 view chest COMPARISON: 10/21/2023 FINDINGS: There is hazy opacification of the lungs in the lower lobes, suspicious for pneumonia. Melinda re emphysema. The cardiomediastinal silhouette is within normal limits. There are no pleural effusio ns. There is no pneumothorax suspected. Portacatheter tip in the SVC. IMPRESSION: 1: Hazy opacification of the lower lungs, suspicious for pneumonia.. Reviewed, dictated and finalized at location B.
[2024-03-23 12:55] VITALS: BP 96/67; PULSE 94; RESP 24; TEMP 36.4; O2SAT 83
--- NOTE | 2024-03-23 12:55 | ED.URI ---
HPI - URI/Sore Throat General Chief Complaint: Upper Respiratory Infection Stated Complaint: SOB/COUGH/NAUSEA/DIZZY Time Seen by Provider: 03/23/24 12:58 Source: patient and RN notes reviewed Mode of arrival: ambulatory Limitations: no limitations History of Present Illness HPI Narrative: 53-year-old female with history of COPD, lung cancer presents with concern for 5 day history of shortness of breath, dizziness lightheadedness and cough. She reports she had her last treatment for lung cancer 1 year ago. She is usually on room air at home. Reports she has been using her albuterol inhaler once every 1-2 hours without relief. She reports history of being hospitalized for pneumonia in the past MD elicited complaint: cough Related Data Home Medications Medication Instructions Recorded Confirmed cholecalciferol (vitamin D3) 50 2,000 unit PO DAILY 09/23/19 12/18/23 mcg (2,000 unit) capsule (Vitamin D3) multivit-iron 18 mg-folic acid 400 1 tablet PO DAILY 09/23/19 12/18/23 mcg-calcium 500 mg-minerals tablet (One-A-Day Womens Formula) buspirone 10 mg tablet 10 mg PO BID 12/01/23 12/18/23 levothyroxine 300 mcg tablet 300 mcg PO DAILY 12/01/23 12/18/23 Allergies Allergy/AdvReac Type Severity Reaction Status Date / Time morphine Allergy Unknown Hives Verified 03/23/24 13:04 Review of Systems Review of Systems: CONSTITUTIONAL: Reports malaise, fever. EYES: Denies visual changes, redness, or discharge. ENT: Reports rhinorrhea, congestion CARDIOVASCULAR: Denies chest pain, palpitations, or edema. RESPIRATORY: Reports cough, dyspnea. GASTROINTESTINAL: Denies abdominal pain, nausea, vomiting, diarrhea SKIN: Denies rash or itching. MUSCULOSKELETAL: Denies myalgia. NEUROLOGIC: Denies headache. Reports lightheadedness All systems reviewed & are unremarkable except as noted in HPI and below PMFSH Past Medical History Medical History Anxiety Bronchogenic carcinoma of left lung Status post chemo radiation. Currently on immunotherapy. Emphysema lung Generalized anxiety disorder HTN (hypertension) Humerus fracture Hyperlipidemia Hypothyroidism Lung cancer diagnosed 12/17/2022 Seborrheic keratosis Spinal stenosis Tobacco use Type 2 diabetes mellitus with hyperglycemia Type 2 diabetes mellitus without complications Surgical History Surgical History History of cystoscopy History of lithotripsy Family History Family History Father Carcinoma of colon Family history of Alzheimer's disease Family history of malignant neoplasm of urinary bladder Diabetes mellitus Grandparent Carcinoma of colon Family history of malignant neoplasm of brain Diabetes mellitus Mother Family history of malignant neoplasm of ovary Social History Social History Social History: Surrogate medical decision maker: Terry Damon, spouse. Code status: Full code. Smoking packs per day: 0.25 Smoking cigarettes per day: 5.0 Years smoked: 30 Smoking pack-years: 7.50 Smoking status: Current every day smoker Tobacco type: cigarettes Second hand tobacco smoke exposure: Yes Alcohol intake: current Drinks per week: 10 Alcohol use details: occasional Substance use: never Substance use type: does not use Lack of Transportation: No Lack of Food: Never True Current Housing: I Have Housing Concerned About Future Housing: No Difficulty Paying Gas/Electric Bills: No Difficulty Paying for Meds: No Currently Unemployed: No Education: High School Diploma/GED Difficulty w/ Childcare or Family Care: No Living arrangements: with family Additional living arrangements comments: Resides in [place] with her . Occupation/Education: occupation Additional occupation/education
[2024-03-23] MEDS: IPRATROPIUM 0.5 MG/ALBUTEROL SULFATE 2.5 MG AMPUL.NEB 3 ML INHALATION (13:06)
[2024-03-23 13:43] VITALS: PULSE 89; O2SAT 94
[2024-03-23 14:10] VITALS: PULSE 108; RESP 24; O2SAT 95
[2024-03-23 14:24] VITALS: BP 111/74; PULSE 85; RESP 22; TEMP 36.9; O2SAT 94
[2024-03-23 14:30] VITALS: BP 111/74; PULSE 91; RESP 24; O2SAT 93
== END 2024-03-23 14:30 | disposition short-term general hospital (02) ==
PROVIDERS: Emergency Provider Nurse Practitioner; PCP Family Medicine
DX: J18.9 Pneumonia, unspecified organism (principal); R09.02 Hypoxemia; C34.92 Malignant neoplasm of unspecified part of left bronchus or lung; F17.210 Nicotine dependence, cigarettes, uncomplicated; I10 Essential (primary) hypertension; E78.5 Hyperlipidemia, unspecified; E03.9 Hypothyroidism, unspecified; E11.9 Type 2 diabetes mellitus without complications; J44.9 Chronic obstructive pulmonary disease, unspecified; F41.9 Anxiety disorder, unspecified
CPT/HCPCS: 71046; 94640; 99215; G0463

== ENCOUNTER 2024-03-23 14:48 | Inpatient (IN) | payer OTHER, SELFPAY ==
[2024-03-23] VITALS (11 sets, daily range): BP systolic 98–114; BP diastolic 56–85; PULSE 76–96; RESP 13–97; TEMP 36.3–37.2; O2SAT 20–97; BMI 19.9
--- NOTE | ~2024-03-23 | XR_ITS ---
XR chest 1V portable Ordering provider: Wilberto Ingram MD History: 53 years Female with . pneumonia, follow-up . Comparison: March 29, 2024 FINDINGS: Right Port-A-Cath with the tip overlying superior vena cava. MEDIASTINUM: The cardiac silhouette is not enlarged. LUNGS: Lucency in the apical areas suggestive of emphysematous bulla. Bilateral interstitial changes are again demonstrated which may indicate pneumonitis. Edema is less likely. No effusions or pneumoth orax. OTHER: No free air under the diaphragm. Degenerative changes of the spine. All IMPRESSION: Bilateral basal interstitial changes suggestive of pneumonitis. Underlying emphysematous changes with emphysematous bulla in the upper lobes areas. Reviewed, dictated and finalized at location A. IMPRESSION: Bilateral basal interstitial changes suggestive of pneumonitis. Underlying emph ysematous changes with emphysematous bulla in the upper lobes areas.
--- NOTE | ~2024-03-23 | XR_ITS ---
Portable chest x-ray Comparison: 03/28/2024 Clinical History: Pneumonia Findings: Stable bibasilar groundglass and interstitial disease. Probable underlying COPD. Stable ri ght-sided Mediport. Cardiomediastinal silhouette is stable. Bones and soft tissues are unremarkable. Impression: No interval change. Stable hazy and interstitial bibasilar pulmonary disease, suggestive of pulmonary edema versus pneumonia. Underlying COPD. Reviewed, dictated and finalized at location M. Impression: No interval change. Stable hazy and interstitial bibasilar pulmonary disease, s uggestive of pulmonary edema versus pneumonia. Underlying COPD.
--- NOTE | ~2024-03-23 | CT_ITS ---
EXAMINATION: CTA chest PE protocol DATE: 03/24/2024 12:34 INDICATION: Severe hypoxia TECHNIQUE: Computed tomography angiography (CTA) of the chest was performed with 100 mL Omnipaque-350 intravenous contrast timed to evaluate the pulmonary arteries. Coronal maximum intensity projection 3D-reconstructions were created by the technologist. Automated exposure control and iterative reconst ruction technique were employed. Exam dose: 194.79 mGy-cm total exam DLP. COMPARISON: 03/23/2024 PA and lateral chest 05/14/2022 CTA chest FINDINGS: Right internal jugular Port-A-Cath catheter. There is diagnostic contrast enhancement of the pulmonary arteries and no evidence of pulmonary embol ism. No thoracic aortic aortic aneurysm or dissection. Normal heart size. No pericardial effusion. No pleu ral effusion. No hilar or mediastinal mass lesion or lymphadenopathy. Severe emphysema. Probable post radiation scarring in the left upper lobe at the site of the previous lung mass. There are severe diffuse bilateral lower lobe infiltrates with involvement of the middle lobe and joao gula stent, as well. The findings suggest severe bilateral pneumonia. Pulmonary edema is another cons ideration. The adrenal glands are unremarkable. No suspicious osteolytic or osteoblastic lesions. IMPRESSION: Severe bilateral pulmonary joints involving particularly the lower lobes, with involveme nt of middle lobe and lingula as well, suggesting severe bilateral pneumonia; pulmonary edema is incl uded in the differential diagnosis Prominent emphysema Left upper lobe post radiation scarring at site of prior bronchogenic carcinoma Reviewed, dictated and finalized at [facility] A. Reviewed, dictated and finalized at location J. IMPRESSION: Severe bilateral pulmonary joints involving particularly the lower lobes, with involvement of middle lobe and lingula as well, suggesting severe bilateral pneumonia; pulmonary edema is included in the differential diagnosis Prominent emphysema Left upper lobe post radiation scarring at site of prior bronchogenic carcinoma
--- NOTE | ~2024-03-23 | XR_ITS ---
Portable chest x-ray Comparison: 03/26/2024 Clinical History: Pneumonia Findings: Right-sided Mediport is in place. Bibasilar groundglass and interstitial disease is unchan ged. Stable probable biapical bullous change/underlying COPD. Cardiomediastinal silhouette is stable . Bones and soft tissues are unremarkable. Impression: Stable bibasilar groundglass and interstitial disease. Correlate for pneumonia or mild pulmonary jay a. Probable underlying COPD. Stable support line. Reviewed, dictated and finalized at location M. Impression: Stable bibasilar groundglass and interstitial disease. Correlate for pneumonia or mild pulmonary edema. Probable underlying COPD. Stable support line.
--- NOTE | ~2024-03-23 | XR_ITS ---
Portable chest x-ray Comparison: 03/23/2024 Clinical History: Pneumonia Findings: Right-sided Mediport in place. There is extensive bibasilar groundglass and interstitial d isease. There is probable COPD and possible left apical bullous change. Cardiomediastinal silhouette is stable. Bones and soft tissues are unremarkable. Impression: Bibasilar groundglass and interstitial disease. Correlate for pulmonary edema and/or pneumonia, super imposed upon underlying COPD. Right-sided Mediport. Reviewed, dictated and finalized at location M. Impression: Bibasilar groundglass and interstitial disease. Correlate for pulmonary edema a nd/or pneumonia, superimposed upon underlying COPD. Right-sided Mediport.
--- NOTE | ~2024-03-23 | CT_ITS ---
EXAMINATION:CT diagnostic chest wo con DATE: 04/01/2024 13:41 INDICATION: Pneumonia. TECHNIQUE: Computed tomography (CT) of the chest was performed without intravenous contrast. Automate d exposure control and iterative reconstruction technique were employed. The dose-length product (DLP ) was 135.14 mGy-cm. COMPARISON: Chest CT 03/24/2024 FINDINGS: There is moderate emphysema. There are groundglass and airspace opacities in the mid and lo wer lung zones with a peripheral predominance. There are peripheral groundglass opacities in the uppe r lung zones. There is left perihilar radiation fibrosis. No pleural effusion. The heart size is norm al. There are coronary artery calcifications. No pericardial effusion. There is a left right internal jugular central venous catheter with tip at superior cavoatrial junction. There are changes of florecita cystectomy. There is diffuse hepatic steatosis. There is mild thoracic spondylosis. IMPRESSION: 1. Diffuse lung disease with a lower lung predominance with interval improvement, consistent with pne umonia versus pulmonary edema. 2. Moderate emphysema. 3. Left perihilar radiation fibrosis. Reviewed, dictated and finalized at location A. IMPRESSION: 1. Diffuse lung disease with a lower lung predominance with interval improvemen t, consistent with pneumonia versus pulmonary edema. 2. Moderate emphysema. 3. Left perihilar radiation fibrosis.
--- NOTE | ~2024-03-23 | XR_ITS ---
Portable chest x-ray Comparison: 03/25/2024 Clinical History: Respiratory failure Findings: Right-sided Mediport in place. There is persistent bibasilar groundglass and interstitial pattern, right worse than left. Probable underlying COPD. Cardiomediastinal silhouette is stable. Prabhjot artur and soft tissues are unremarkable. Impression: Stable hazy and interstitial bibasilar pulmonary disease, likely representing acute pulmonary edema a nd/or infection, with probable underlying COPD. Stable Mediport. Reviewed, dictated and finalized at location . Impression: Stable hazy and interstitial bibasilar pulmonary disease, likely representing a cute pulmonary edema and/or infection, with probable underlying COPD. Stable Mediport.
--- NOTE | 2024-03-23 14:47 | ED.SOB ---
HPI - SOB/Dyspnea General Chief Complaint: Shortness of Breath/Dyspnea <Wing Mike APRN - Last Filed: 03/23/24 17:07> Stated Complaint: PNA <Wing Mike APRN - Last Filed: 03/23/24 17:07> Time Seen by Provider: 03/23/24 14:48 <Wing Mike APRN - Last Filed: 03/23/24 17:07> Source: patient <Wing Mike APRN - Last Filed: 03/23/24 17:07> Mode of arrival: ambulatory <Wing Mike APRN - Last Filed: 03/23/24 17:07> Limitations: no limitations <Wing Mike APRN - Last Filed: 03/23/24 17:07> History of Present Illness HPI Narrative: Joanie is a 53-year-old female patient presenting to the clinic today with complaints of shortness of breath for the past 2 weeks. She reports she has a nonproductive cough. History of lung cancer. Had finished radiation and immunotherapy 1 year ago. Had seen her radiator core tester last week and no imaging was done at that time as the patient felt fairly well. Oxygen saturation was initially 86% on room air. Place on 4 liters nasal cannula she is sating at 95% . Reports that she is on her 2nd dose of Chantix and she has not been smoking. She denies any URI symptoms. She was brought here by EMS from the local [facility]- had chest x-ray done at the [facility] and x-ray shows hazy opacities and the bilateral lower lobe consistent for pneumonia. EMS did give breathing treatment prior to arriving to the ER. <Wing Mike APRN - Last Filed: 03/23/24 17:07> Related Data Home Medications: Home Medications Medication Instructions Recorded Confirmed cholecalciferol (vitamin D3) 50 2,000 unit PO DAILY 09/23/19 03/23/24 mcg (2,000 unit) capsule (Vitamin D3) multivit-iron 18 mg-folic acid 400 1 tablet PO DAILY 09/23/19 03/23/24 mcg-calcium 500 mg-minerals tablet (One-A-Day Womens Formula) buspirone 10 mg tablet 10 mg PO DAILY 04/05/24 07/27/24 levothyroxine 300 mcg tablet 300 mcg PO DAILY 12/01/23 03/23/24 <Wing Mike APRN - Last Filed: 03/23/24 17:07> Allergies/Adverse Reactions: Allergies Allergy/AdvReac Type Severity Reaction Status Date / Time morphine Allergy Unknown Hives Verified 03/23/24 13:04 <Wing Mike APRN - Last Filed: 03/23/24 17:07> Review of Systems Review of Systems: Pertinent positives per HPI. Patient denies any fever, chills, rash, headache, visual changes, dizziness, runny nose, sore throat, chest pain, palpitations, nausea, vomiting, diarrhea, constipation, abdominal pain, or any urinary issues. <Wing Mike APRN - Last Filed: 03/23/24 17:07> [facility] Past Medical History Medical History: Medical History (Updated 03/24/24 @ 00:00 by [employer]) Anxiety 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 Currently on immunotherapy. Emphysema lung Generalized anxiety disorder Humerus fracture Hyperlipidemia Hypertension Hypothyroidism Seborrheic keratosis Spinal stenosis Tobacco use Type 2 diabetes mellitus without complications <Wing Mike APRN - Last Filed: 03/23/24 17:07> Surgical History Surgical History: Surgical History History of cystoscopy History of lithotripsy <Wing Mike APRN - Last Filed: 03/23/24 17:07> Family History Family History: Family History Father Carcinoma of colon Family history of Alzheimer's disease Family history of malignant neoplasm of urinary bladder Diabetes mellitus Grandparent Carcinoma of colon Family history of malignant neoplasm of brain Diabetes mellitus Mother Family history of malignant neoplasm of ovary <Wing Mike APRN - Last Filed: 03/23/24 17:07> Social History Social History: Social History Social History: Surr
--- NOTE | 2024-03-23 14:55 | ECG_ITS ---
Test Date: 2024-03-23 15:17:25 Measurements Intervals [place] Rate: 75 P: 66 SD: 140 QRS: -14 QRSD: 97 T: 69 QT: 407 QTc: 455 Interpretive Statements SINUS RHYTHM DELAYED PRECORDIAL R/S TRANSITION BASELINE ARTIFACT- I, II, III, AVR, AVF, V4-V5 BORDERLINE ECG No previous ECG available for comparison Electronically Signed On 03-23-2024 19:30:29 CDT by Jose Saavedra D.O.
[2024-03-23 15:28] LABS: Basophils Percent Auto 0.3 % (0.2-1.2); Eosinophils Absolute Auto 0.1 K/mm3 (0-0.3); Eosinophils Percent Auto 0.6 % (0-4.4); Hematocrit 35.1 % (37.0-47.0); Hemoglobin 12.1 g/dL (12.0-15.0); Immature Granulocyte Absolute 0.05 K/mm3 (0.00-0.031); Immature Granulocyte Percent A 0.4 % (0-0.5); Lymphocytes Absolute Auto 0.81 K/mm3 (0.9-3.2); Mean Corpuscular HGB Conc 34.5 g/dl (32-36); Mean Corpuscular Hemoglobin 35.3 pg (26-34); Mean Corpuscular Volume 102.3 fl (80-100); Mean Platelet Volume 10.3 fl (7.4-10.4); Monocytes Absolute Auto 0.7 K/mm3 (0.1-0.6); Neutrophils Absolute Auto 11.8 K/mm3 (1.3-6.7); Neutrophils Percent Auto 87.7 % (45.5-73.1); Platelet Count Result 305 k/mm3 (150-375); Red Blood Count 3.43 M/mm3 (4.2-5.4); Red Cell Distribution Width 11.7 % (11.5-14.5); White Blood Count 13.4 K/mm3 (4.5-10.0)
[2024-03-23 15:45] LABS: Alanine Aminotransferase 37 U/L (6-35); Albumin Level 3.9 g/dL (3.5-5.1); Alkaline Phosphatase 127 U/L (38-126); Anion Gap 11 mmol/L (4-12); Aspartate Amino Transferase 60 U/L (14-36); Bilirubin,Total 1.1 mg/dL (0.2-1.3); Blood Urea Nitrogen 12 mg/dL (7-17); Calcium 9.5 mg/dL (8.4-10.2); Carbon Dioxide 20 mmol/L (22-30); Chloride 105 mmol/L (98-107); Estimated CRCL calculation 84 ml/min; Estimated Glomerular Filt Rate > 60; Glucose 121 mg/dL (65-110); Sodium 136 mmol/L (137-145)
[2024-03-23 15:46] LABS: Lactic Acid Reflex 1.2 mmol/L (0.7-2.0)
[2024-03-23] MEDS: AZITHROMYCIN 500 MG/NS 250 ML 500 MG/250 ML BAG 250 MG IVPB (15:59)
[2024-03-23] MEDS: SODIUM CHLORIDE 0.9% IV 1,000 ML 150 ML IV CONT (16:04)
[2024-03-23] MEDS: POTASSIUM CHLORIDE 20 MEQ ER TABLET 40 MEQ PO (16:06)
[2024-03-23 16:26] LABS: Influenza A QL RT-PCR Negative (Negative); Influenza B QL RT-PCR Negative (Negative); RSV RNA, RT-PCR Negative (Negative); SARS-CoV-2 RNA PCR Negative (Negative)
--- NOTE | 2024-03-23 17:54 | PC.NURSE ---
Dinner meal given. Pt shortness of breath increases while eating. Advised pt to take her time to prevent increase shortness of breath.
[2024-03-23] MEDS: SODIUM CHLORIDE 0.9% IV 1,000 ML 125 ML IV CONT (18:10)
--- NOTE | 2024-03-23 18:10 | ADMGEN ---
This patient, Joanie Damon, was admitted to [facility] Surg Room 313-01. Patient/family oriented to hospital policies and general routines including ID bracelet, bed and alarms, visiting hours, pain management, procedures, bathroom and other care routines, personal items, smoking policy, room service/diet, and visiting hours. Information on how to activate the Rapid Response Team has been discussed. Patient/Family are encouraged to report perceived risks to care and to ask questions if they do not understand what they are told or what they should do.
--- NOTE | 2024-03-23 18:27 | PC.NURSE ---
On 03/23/24, the CONCRETE PILE DRIVER OPERATOR, Mago Sandoval, provided care and completed [facility] documentation on this patient. I have reviewed the CONCRETE PILE DRIVER OPERATOR's documentation and agree with the findings.
--- NOTE | 2024-03-23 19:08 | PM.IMHP ---
H&P: HPI History of Present Illness Date/Time: 03/23/24 17:00 Chief Complaint: Cough and shortness of breath. Narrative: This is a very pleasant 53-year-old female smoker with history of lung cancer status post chemoradiation and immunotherapy, emphysema, hypertension, hypothyroidism, diet-controlled diabetes, and anxiety who presented to the emergency department via EMS from urgent care for evaluation of shortness of breath and cough. The patient provides the following history. Over the last 1.5 to 2 weeks she has been experiencing dyspnea on lesser and lesser exertion as well as a wet but nonproductive cough, occasional posttussive emesis, and low-grade fever. She has been taking Advil and is using her inhaler at home without much benefit. She went to urgent care due to increasing shortness of breath and she was found to have an SpO2 of 86% on room air for which she was transferred to the ED. She denies sinus congestion, sore throat, pleuritic pain, orthopnea, edema, paroxysmal nocturnal dyspnea, sensations of racing heart, hemoptysis, nausea, and diarrhea. In the ED: SpO2 has been in the mid 90s on 4 L.. She was afebrile on arrival. The remainder of her vital signs have been stable. Labs were significant for WBC count of 13.4, hemoglobin 12.1, sodium 136, potassium 3.0, BUN 12, creatinine 0.60, AST 60, ALT 37, alkaline phosphatase 127. She tested negative for influenza, RSV, and COVID. Chest x-ray showed hazy opacification the lower lung suspicious for pneumonia. She was given a nebulizer treatment and has been started on antibiotics and she is being admitted in this setting for further treatment. Review of Systems Review of Systems: 12 systems were reviewed and are negative except for as per HPI. [facility] Past Medical History Medical History (Updated 03/23/24 @ 21:03 by Radha Mckeon PA-C) Anxiety 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 Currently on immunotherapy. Emphysema lung Generalized anxiety disorder Humerus fracture Hyperlipidemia Hypertension Hypothyroidism Seborrheic keratosis Spinal stenosis Tobacco use Type 2 diabetes mellitus without complications Surgical History Surgical History History of cystoscopy History of lithotripsy Family History Family History Father Carcinoma of colon Family history of Alzheimer's disease Family history of malignant neoplasm of urinary bladder Diabetes mellitus Grandparent Carcinoma of colon Family history of malignant neoplasm of brain Diabetes mellitus Mother Family history of malignant neoplasm of ovary Social History Social History Social History: Surrogate medical decision maker: Terry Damon, spouse. Code status: Full code. Smoking packs per day: 1 Smoking cigarettes per day: 20.0 Years smoked: 35 Smoking pack-years: 35.00 Smoking status: Former smoker Tobacco type: cigarettes Second hand tobacco smoke exposure: Yes Smoking end date: 03/17/24 Alcohol intake: current Drinks per week: 10 Alcohol use details: occasional Substance use: never Substance use type: does not use Do You Feel Safe in your Home?: Yes Lack of Transportation: No Lack of Food: Never True Current Housing: I Have Housing Concerned About Future Housing: No Difficulty Paying Gas/Electric Bills: No Difficulty Paying for Meds: No Currently Unemployed: No Education: High School Diploma/GED Difficulty w/ Childcare or Family Care: No Living arrangements: with family Additional living arrangements comments: Resides in [place] with her . Occupation/Education: occupation Additional occupation/education comments: [employer] at a [employer] firm. Spiritual care concerns: No Meds Home Medications and Allergies Home M
[2024-03-23] MEDS: guaiFENesin 12 HR 600 MG TABCR PO (23:08)
[2024-03-23] MEDS: ACETAMINOPHEN 325 MG TABLET 650 MG PO (23:08)
[2024-03-23] MEDS: LORazepam (*CRX) 0.5 MG TABLET PO (23:08)
[2024-03-24] VITALS (30 sets, daily range): BP systolic 115–140; BP diastolic 62–75; PULSE 65–110; RESP 13–28; TEMP 36.1–37.6; O2SAT 88–99
[2024-03-24] MEDS: IPRATROPIUM 0.5 MG/ALBUTEROL SULFATE 2.5 MG AMPUL.NEB 3 ML INHALATION ×4 (01:50→21:02)
[2024-03-24 05:39] LABS: MRSA (PCR) NOT DETECTED (NOT DETECTE)
[2024-03-24] MEDS: LEVOTHYROXINE SODIUM 150 MCG TABLET 300 MCG PO (05:42)
[2024-03-24 06:22] LABS: Hematocrit 33.6 % (37.0-47.0); Hemoglobin 11.2 g/dL (12.0-15.0); Mean Corpuscular HGB Conc 33.3 g/dl (32-36); Mean Corpuscular Volume 102.1 fl (80-100); Mean Platelet Volume 10.4 fl (7.4-10.4); Platelet Count Result 302 k/mm3 (150-375); Red Blood Count 3.29 M/mm3 (4.2-5.4); Red Cell Distribution Width 11.6 % (11.5-14.5); White Blood Count 12.3 K/mm3 (4.5-10.0)
[2024-03-24 06:40] LABS: Alanine Aminotransferase 35 U/L (6-35); Albumin Level 3.2 g/dL (3.5-5.1); Alkaline Phosphatase 112 U/L (38-126); Anion Gap 9 mmol/L (4-12); Aspartate Amino Transferase 64 U/L (14-36); Bilirubin,Total 0.8 mg/dL (0.2-1.3); Blood Urea Nitrogen 8 mg/dL (7-17); Carbon Dioxide 22 mmol/L (22-30); Chloride 110 mmol/L (98-107); Estimated CRCL calculation 101 ml/min; Estimated Glomerular Filt Rate > 60; Glucose 104 mg/dL (65-110); Magnesium 1.5 mg/dL (1.6-2.3); Potassium 3.4 mmol/L (3.4-5.0); Sodium 141 mmol/L (137-145)
[2024-03-24 07:33] LABS: Hepatitis B Surface Antigen Negative (Negative)
[2024-03-24 07:35] LABS: Thyroid Stimulating Hormone Reflex < 0.015 uIU/mL (0.465-4.68)
[2024-03-24 07:39] LABS: HAV RESULT Negative (Negative); Hepatitis B Core IgM Result Negative (Negative)
[2024-03-24 07:51] LABS: Hepatitis C Virus Antibody Negative (Negative)
[2024-03-24 08:04] LABS: Free T4 Free Thyroxine Reflex 1.62 ng/dL (0.78-2.19)
[2024-03-24] MEDS: THERAPEUTIC MULTIVITAMINS/MINERALS TAB (*BKC) 1 TABLET PO (08:36)
[2024-03-24] MEDS: guaiFENesin 12 HR 600 MG TABCR PO ×2 (08:36→20:51)
[2024-03-24] MEDS: CHOLECALCIFEROL 1,000 UNITS TABLET 2000 UNITS PO (08:36)
[2024-03-24] MEDS: SERTRALINE HCL 50 MG TABLET 150 MG PO (08:36)
[2024-03-24] MEDS: FERROUS SULFATE 325 MG TABLET DR PO (08:36)
[2024-03-24] MEDS: ENOXAPARIN 40 MG/0.4 ML SYRINGE SUB-Q (08:36)
[2024-03-24] MEDS: busPIRone HCL 10 MG TABLET PO (08:36)
[2024-03-24 10:01] LABS: Total Triiodothyronine (T3) 0.72 NG/ML (0.97-1.69)
[2024-03-24] MEDS: ALBUTEROL SULFATE NEB 2.5 MG/3 ML INH 15 MG INHALATION (10:21)
[2024-03-24] MEDS: IPRATROPIUM BR 0.02% INH SOLN 0.5 MG/2.5 ML VIAL 1 MG INHALATION (10:21)
[2024-03-24 10:35] LABS: Alveolar/Arterial O2 Gradient 294.6 mmHg; Base Excess ABG -3.2 mEq/l (+/-2.0); Fractional Inspired Oxygen 52 %; Oxygen Content ABG 15.2 %vol (16.0-22.0); PCO2 ABG 26.9 mmHg (35.0-45.0); PO2 FiO2 Ratio Arterial Blood 0.88 %; Total Hemoglobin 13.2 g/dL (12.0-18.0); pH ABG 7.468 (7.350-7.450)
[2024-03-24 10:38] LABS: Modified Allen's Test Pass; Oxygen Saturation ABG 85.5 % (95.0-100.0); Oxyhemoglobin 81.8 % THb (90.0-100.0); Site Drawn RIGHT RADIAL
[2024-03-24 10:39] LABS: Device HIGH FLOW NASAL CANN
[2024-03-24] MEDS: VANCOMYCIN 1,500 MG/NS 500 ML 1,500 MG/500 ML BAG 250 MG IVPB (11:49)
[2024-03-24 12:29] LABS: MRSA (PCR) NOT DETECTED (NOT DETECTE)
--- NOTE | 2024-03-24 13:29 | PC.NURSE ---
O2 sats 75% on 4L this AM. Sats still at 82% on 5L. RN placed pt on 8L highflow to reach sat of 88-90%. MD aware. Lungs are clear/diminished, pt is not in distress. VSS. Will continue to monitor and wean as appropriate.
[2024-03-24] MEDS: CEFEPIME 2 GM/NS 50 ML 2 GM/50 ML BAG IVPB ×2 (14:30→20:52)
--- NOTE | 2024-03-24 15:24 | PC.NURSE ---
This patient, Joanie Damon, was transferred to [facility] on 03/24/24 at 1524. Personal belongings sent with patient. Report given to JEAN-CLAUDE Hathaway. Appropriate documentation sent with patient.
--- NOTE | 2024-03-24 15:43 | PM.IMPN ---
Progress Note: A&P Assessment and Plan (1) Anxiety: Code(s): F41.9 - Anxiety disorder, unspecified Status: Acute (2) HTN (hypertension): Code(s): I10 - Essential (primary) hypertension Status: Acute (3) Emphysema lung: Code(s): J43.9 - Emphysema, unspecified Status: Acute (4) Elevated LFTs: Code(s): R79.89 - Other specified abnormal findings of blood chemistry Status: Acute (5) Acute respiratory failure with hypoxia: Code(s): J96.01 - Acute respiratory failure with hypoxia Status: Acute (6) Pneumonia: Qualifiers: Laterality: bilateral Lung location: lower lobe of lung Pneumonia type: due to unspecified organism Qualified Code(s): J18.9 - Pneumonia, unspecified organism Code(s): J18.9 - Pneumonia, unspecified organism Status: Acute (7) Acquired hypothyroidism: Code(s): E03.9 - Hypothyroidism, unspecified Status: Acute Plan H&P via Radha Mckeon PA-C This is a very pleasant 53-year-old female smoker with history of lung cancer status post chemoradiation and immunotherapy, emphysema, hypertension, hypothyroidism, diet-controlled diabetes, and anxiety who presented to the emergency department via EMS from urgent care for evaluation of shortness of breath and cough. The patient provides the following history. Over the last 1.5 to 2 weeks she has been experiencing dyspnea on lesser and lesser exertion as well as a wet but nonproductive cough, occasional posttussive emesis, and low-grade fever. She has been taking Advil and is using her inhaler at home without much benefit. She went to urgent care due to increasing shortness of breath and she was found to have an SpO2 of 86% on room air for which she was transferred to the ED. She denies sinus congestion, sore throat, pleuritic pain, orthopnea, edema, paroxysmal nocturnal dyspnea, sensations of racing heart, hemoptysis, nausea, and diarrhea. In the ED: SpO2 has been in the mid 90s on 4 L.. She was afebrile on arrival. The remainder of her vital signs have been stable. Labs were significant for WBC count of 13.4, hemoglobin 12.1, sodium 136, potassium 3.0, BUN 12, creatinine 0.60, AST 60, ALT 37, alkaline phosphatase 127. She tested negative for influenza, RSV, and COVID. Chest x-ray showed hazy opacification the lower lung suspicious for pneumonia. She was given a nebulizer treatment and has been started on antibiotics and she is being admitted in this setting for further treatment. March 24: The patient had been doing well on the 1st night of admission but then desaturated and had shortness of breath in the morning of March 24. On 8 L high-flow nasal cannular her ABG revealed a pH of 7.46, pCO2 27, PO2 46, bicarb 19. She was then placed on 60% FiO2 of Airvo and felt better. Transfer to IMU. Due to this decompensation a CTA chest PE protocol was performed which did not demonstrate a pulmonary embolism. However, it does reveal severe middle and lower lobe pneumonia with prominent emphysema and possibly pulmonary edema. MRSA in the nares negative. Broaden antibiotics to cefepime azithromycin and vancomycin. No sputum culture obtained yet. Blood cultures pending. Monitor leukocytosis. Trend procalcitonin. Replace magnesium. Continue Cornet valve. Continue DuoNebs q.6 hours. Liver enzymes have mostly improved. Continue to trend. Viral hepatitis screen negative. BNP 335. Patient appears euvolemic. Hold off on diuresis for now. Mycoplasma, pneumococcal, Legionella studies are pending. Quad viral screen on admission negative. Portable chest x-ray in the morning. Chronic Conditions -continue DIRECTOR OF INCOME TAX antianxiety -holding DIRECTOR OF INCOME TAX losartan and amlodipine -holding DIRECTOR OF INCOME TAX Chantix -continue DIRECTOR OF INCOME TAX Buspirone, sertraline -continue DIRECTOR OF INCOME TAX levothyroxine -continue DIRECTOR OF INCOME TAX ferrous sulfate F/E/N: saline lock IV, replace lytes as needed, regular diet GI prophylaxis: Not indicated DVT prophylaxis: Lovenox 40 mg evangelista
[2024-03-24 15:44] LABS: NT Pro B Type Natriuretic Pept 335 pg/mL (19.9-100)
[2024-03-24] MEDS: AZITHROMYCIN 500 MG/NS 250 ML 500 MG/250 ML BAG 250 MG IVPB (16:48)
[2024-03-24] MEDS: MAGNESIUM SULF 2 GM/WATER 50ML 2 GM/50 ML BAG IVPB (16:48)
[2024-03-24] MEDS: LORazepam (*CRX) 0.5 MG TABLET PO (21:45)
[2024-03-24] MEDS: ACETAMINOPHEN 325 MG TABLET 650 MG PO (21:45)
[2024-03-24] MEDS: VANCOMYCIN 1,250 MG/NS 250 ML 1,250 MG/250 ML BAG 166.67 MG IVPB (23:11)
[2024-03-25] VITALS (30 sets, daily range): BP systolic 102–114; BP diastolic 57–79; PULSE 68–110; RESP 21–32; TEMP 36.4–37; O2SAT 70–100
[2024-03-25] MEDS: IPRATROPIUM 0.5 MG/ALBUTEROL SULFATE 2.5 MG AMPUL.NEB 3 ML INHALATION ×4 (02:16→20:31)
[2024-03-25] MEDS: LEVOTHYROXINE SODIUM 150 MCG TABLET 300 MCG PO (06:19)
[2024-03-25] MEDS: CEFEPIME 2 GM/NS 50 ML 2 GM/50 ML BAG IVPB ×3 (06:20→22:07)
[2024-03-25 07:34] LABS: Basophils Absolute Auto 0.1 K/mm3 (0.0-0.1); Basophils Percent Auto 0.4 % (0.2-1.2); Eosinophils Absolute Auto 0.3 K/mm3 (0-0.3); Eosinophils Percent Auto 2.3 % (0-4.4); Hematocrit 33.2 % (37.0-47.0); Hemoglobin 11.4 g/dL (12.0-15.0); Immature Granulocyte Absolute 0.05 K/mm3 (0.00-0.031); Immature Granulocyte Percent A 0.4 % (0-0.5); Lymphocytes Absolute Auto 0.91 K/mm3 (0.9-3.2); Mean Corpuscular HGB Conc 34.3 g/dl (32-36); Mean Corpuscular Volume 101.8 fl (80-100); Mean Platelet Volume 10.7 fl (7.4-10.4); Monocytes Absolute Auto 0.6 K/mm3 (0.1-0.6); Monocytes Percent Auto 4.6 % (2.6-8.5); Neutrophils Percent Auto 85.3 % (45.5-73.1); Platelet Count Result 330 k/mm3 (150-375); Red Blood Count 3.26 M/mm3 (4.2-5.4); Red Cell Distribution Width 11.9 % (11.5-14.5); White Blood Count 12.9 K/mm3 (4.5-10.0)
[2024-03-25 07:50] LABS: Alanine Aminotransferase 35 U/L (6-35); Albumin Level 3.3 g/dL (3.5-5.1); Alkaline Phosphatase 113 U/L (38-126); Anion Gap 8 mmol/L (4-12); Aspartate Amino Transferase 58 U/L (14-36); Bilirubin,Total 0.9 mg/dL (0.2-1.3); Blood Urea Nitrogen 8 mg/dL (7-17); Calcium 8.9 mg/dL (8.4-10.2); Carbon Dioxide 23 mmol/L (22-30); Chloride 107 mmol/L (98-107); Estimated CRCL calculation 82 ml/min; Estimated Glomerular Filt Rate > 60; Glucose 109 mg/dL (65-110); Magnesium 1.8 mg/dL (1.6-2.3); Potassium 3.6 mmol/L (3.4-5.0); Sodium 138 mmol/L (137-145)
[2024-03-25] MEDS: THERAPEUTIC MULTIVITAMINS/MINERALS TAB (*BKC) 1 TABLET PO (08:36)
[2024-03-25] MEDS: busPIRone HCL 10 MG TABLET PO (08:36)
[2024-03-25] MEDS: CHOLECALCIFEROL 1,000 UNITS TABLET 2000 UNITS PO (08:36)
--- NOTE | 2024-03-25 08:36 | ECHO_ITS ---
Patient Info Name: Joanie Damon Age: 53 years : 1970 Gender: Female Ht: 68 in Wt: 108 lbs BSA: 1.52 m2 HR: 78 bpm BP: 114 / 67 mmHg Heart Rhythm: Sinus Rhythm Technical Quality: Good Exam Date: 03/25/2024 1:56 PM Exam Location: Echo Lab Patient Status: Inpatient Admit Date: 03/23/2024 Staff Ordering Physician: Wilberto Ingram MD Education Dean: Jem Rodriguez RDCS Attending Provider: Syed Prado MD Referring Physician: Juan Jose MATHIS; Exam Type: CA echo doppler w bubble study Study Info Indications - lv, rv, , pasp and hypoxia, assess pfo Complete two-dimensional, color flow and Doppler transthoracic echocardiogram is performed with agitated saline. Summary 1. Left ventricular chamber dimension is normal. 2. Left ventricular systolic function is normal, estimated at 60-65%. 3. The left ventricular diastolic function is grade I diastolic dysfunction. 4. E/e' 8 is minimally elevated. 5. There is trace mitral valve regurgitation. 6. There is trace tricuspid valve regurgitation. 7. No pulmonary hypertension, estimated pulmonary arterial systolic pressure is 19 mmHg. Left Ventricle E/e' 8 is minimally elevated. Left ventricular chamber dimension is normal. Left ventricular systolic function is normal, estimated at 60-65%. The left ventricular diastolic function is grade I diastolic dysfunction. Right Ventricle Right ventricular systolic function is normal and with normal TAPSE 2.8 cm. Right ventricular chamber dimension is normal. Left Atria Left atrial chamber dimension is normal. Right Atria Right atrial chamber dimension is normal. Atrial Septum Agitated saline injection with valsalva maneuver opacified right side cardiac chambers without shunt to left side cardiac chambers. Intact interatrial septum visualized by 2D and agitated saline imaging. Aortic Valve The aortic valve is trileaflet. There is no aortic valve stenosis. There is no aortic valve regurgitation. Pulmonic Valve There is no pulmonic regurgitation. Mitral Valve There is no mitral valve stenosis. There is trace mitral valve regurgitation. Tricuspid Valve There is trace tricuspid valve regurgitation. No pulmonary hypertension, estimated pulmonary arterial systolic pressure is 19 mmHg. Pericardium/Pleural There is no pericardial effusion. Inferior Vena Cava Normal inferior vena cava with >50% collapse upon inspiration consistent with normal right atrial pressure, 5 mmHg. Aorta The aortic root size at the sinus of Valsalva is normal. Left Ventricular Outflow Tract Name Value Normal LVOT 2D LVOT Diameter 2.0 cm LVOT Doppler LVOT Peak Gradient 7 mmHg LVOT Mean Gradient 4 mmHg LVOT VTI 25 cm LVOT VTI/AV VTI Ratio 1.0 LVOT Stroke Volume 73 ml LVOT CO 6.0 l/min LVOT CI 4.0 l/min/m2 Pulmonic Valve Name Value Normal
[2024-03-25] MEDS: guaiFENesin 12 HR 600 MG TABCR PO ×2 (08:37→20:52)
[2024-03-25] MEDS: ENOXAPARIN 40 MG/0.4 ML SYRINGE SUB-Q (08:37)
[2024-03-25] MEDS: SERTRALINE HCL 50 MG TABLET 150 MG PO (08:37)
[2024-03-25 09:54] LABS: Procalcitonin 0.3 ng/mL
--- NOTE | 2024-03-25 10:44 | PM.CNPUL ---
Assessment and Plan Assessment and plan (1) Pneumonia: Qualifiers: Laterality: bilateral Lung location: lower lobe of lung Pneumonia type: due to unspecified organism Qualified Code(s): J18.9 - Pneumonia, unspecified organism Code(s): J18.9 - Pneumonia, unspecified organism Status: Acute Assessment and Plan: patient presents with 2-3 weeks of an acute respiratory illness. Reportedly she had a CT scan of the chest through her oncology physicians on 03/14/2024 and was told that this looked good with the routine follow-up scan to be performed in 3 months. Patient presents with 2-3 week history of dyspnea on exertion, 2 week history shortness of breath, 1-2 weeks of a dry cough and 3 days of fever, headache and fatigue. She had a leukocytosis of 13.4, CT scan with diffuse interstitial alveolar infiltrates in the right middle lobe, right lower lobe, left lower lobe and lingula. Developed fever on 03/24 and her procalcitonin on 03/25 is 0.3. COVID, influenza and RSV RT PCR studies negative on 03/23. Blood cultures negative from 03/23. Initially treated with ceftriaxone and azithromycin on 03/23 and changed to vancomycin, cefepime and azithromycin continued on 03/24. 03/25/24: overall the patient tells me that she has a little bit better. She says she has 10% back to her normal. The cough is better, headache and fatigue are the same. White blood cell count 12.9, creatinine 0.5. Chest x-ray demonstrates bibasilar interstitial alveolar infiltrates worse compared with 03/23/2024. The patient was on high-flow nasal cannula oxygen at 50 L and 77% FiO2 with saturations 85% with talking and activity in bed and 91% at rest in bed. Plan: I will continue cefepime, day 2, azithromycin, day 3, and can discontinue vancomycin as her MRSA nasal swab is negative. I will repeat a COVID, influenza and RSV RT PCR study. I will send an extended respiratory pathogen panel to [employer]. Legionella urine antigen, pneumococcal urine antigen and mycoplasma IgM titer are pending. I will check echocardiogram to assess LV, RV and PASP. (2) Acute respiratory failure with hypoxia: Code(s): J96.01 - Acute respiratory failure with hypoxia Status: Acute Assessment and Plan: Patient with a history of COPD but is not on any oxygen at home. She has developed hypoxemic respiratory failure this admission with a blood gas on 8 L nasal cannula 7.. I will check echocardiogram with bubble study to exclude [id number] heart shunt. 03/23/24 14:45 room air sats 86% 03/23/24 15:00 4 L NC 95% 03/23/24 20:00 5 L NC, 93% 03/24/24 09:00 8 L NC, 88% 03/24/24 11:00 15 L NC, 93% 03/24/24 15:00 50 L, 90%, sats 93% 03/24/24 20:00 50 L, 79%, sats 94% 03/25/24 08:00 50 L, 80%, sats 92% goal saturation 90-94%. (3) COPD (chronic obstructive pulmonary disease): Code(s): J44.9 - Chronic obstructive pulmonary disease, unspecified Status: Acute Assessment and Plan: Regarding her COPD the patient tells me she was diagnosed with COPD approximately 3 years ago. She had pneumonia in 2009. She had PFTs at [facility] in and was told she had COPD. At baseline she has no breathing limitations and can walk 1 mi. She chronically wheezes every day at home. She uses albuterol 1 time a month but is on no other maintenance inhalers. She does not follow-up with a cytogenetics laboratory manager. The patient tells me she smoked cigarettes from age 16-2 weeks ago and is currently on Chantix. She smoke 1 pack per day for total of 37 pack years. She was exposed to secondhand smoke from her father. 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 03/25/24: Patient has no wheezes on exam. Plan: Continue DuoNebs q.6 hours. At this point I would not add systemic steroids for COPD. (4) Lung cancer: Code(s): C34.90 - Malignant yonis
[2024-03-25 12:20] LABS: Influenza A QL RT-PCR Negative (Negative); Influenza B QL RT-PCR Negative (Negative); RSV RNA, RT-PCR Negative (Negative); SARS-CoV-2 RNA PCR Negative (Negative)
--- NOTE | 2024-03-25 14:25 | PM.IMPN ---
Progress Note: A&P Assessment and Plan (1) Anxiety: Code(s): F41.9 - Anxiety disorder, unspecified Status: Acute (2) HTN (hypertension): Code(s): I10 - Essential (primary) hypertension Status: Acute (3) Emphysema lung: Code(s): J43.9 - Emphysema, unspecified Status: Acute (4) Elevated LFTs: Code(s): R79.89 - Other specified abnormal findings of blood chemistry Status: Acute (5) Acute respiratory failure with hypoxia: Code(s): J96.01 - Acute respiratory failure with hypoxia Status: Acute (6) Pneumonia: Qualifiers: Laterality: bilateral Lung location: lower lobe of lung Pneumonia type: due to unspecified organism Qualified Code(s): J18.9 - Pneumonia, unspecified organism Code(s): J18.9 - Pneumonia, unspecified organism Status: Acute (7) Acquired hypothyroidism: Code(s): E03.9 - Hypothyroidism, unspecified Status: Acute Plan H&P via Radha Mckeon PA-C This is a very pleasant 53-year-old female smoker with history of lung cancer status post chemoradiation and immunotherapy, emphysema, hypertension, hypothyroidism, diet-controlled diabetes, and anxiety who presented to the emergency department via EMS from urgent care for evaluation of shortness of breath and cough. The patient provides the following history. Over the last 1.5 to 2 weeks she has been experiencing dyspnea on lesser and lesser exertion as well as a wet but nonproductive cough, occasional posttussive emesis, and low-grade fever. She has been taking Advil and is using her inhaler at home without much benefit. She went to urgent care due to increasing shortness of breath and she was found to have an SpO2 of 86% on room air for which she was transferred to the ED. She denies sinus congestion, sore throat, pleuritic pain, orthopnea, edema, paroxysmal nocturnal dyspnea, sensations of racing heart, hemoptysis, nausea, and diarrhea. In the ED: SpO2 has been in the mid 90s on 4 L.. She was afebrile on arrival. The remainder of her vital signs have been stable. Labs were significant for WBC count of 13.4, hemoglobin 12.1, sodium 136, potassium 3.0, BUN 12, creatinine 0.60, AST 60, ALT 37, alkaline phosphatase 127. She tested negative for influenza, RSV, and COVID. Chest x-ray showed hazy opacification the lower lung suspicious for pneumonia. She was given a nebulizer treatment and has been started on antibiotics and she is being admitted in this setting for further treatment. March 24: The patient had been doing well on the 1st night of admission but then desaturated and had shortness of breath in the morning of March 24. On 8 L high-flow nasal cannular her ABG revealed a pH of 7.46, pCO2 27, PO2 46, bicarb 19. She was then placed on 60% FiO2 of Airvo and felt better. Transfer to IMU. Due to this decompensation a CTA chest PE protocol was performed which did not demonstrate a pulmonary embolism. However, it does reveal severe middle and lower lobe pneumonia with prominent emphysema and possibly pulmonary edema. MRSA in the nares negative. Broaden antibiotics to cefepime azithromycin and vancomycin. No sputum culture obtained yet. Blood cultures pending. Monitor leukocytosis. Trend procalcitonin. Replace magnesium. Continue Cornet valve. Continue DuoNebs q.6 hours. Liver enzymes have mostly improved. Continue to trend. Viral hepatitis screen negative. BNP 335. Patient appears euvolemic. Hold off on diuresis for now. Mycoplasma, pneumococcal, Legionella studies are pending. Quad viral screen on admission negative. Portable chest x-ray in the morning. March 25: The patient has decompensated through the morning and early afternoon as evidence by her worsened breathing and inability to maintain saturations. Pulmonology consult by Dr. Ingram is greatly appreciated. Pending repeat viral screen and full respiratory pathogen panel. Pending surface echocardiogram. Due to the pat
[2024-03-25] MEDS: HYDROCORTISONE SODIUM SUCCINATE 100 MG/2 ML VIAL 50 MG IV PUSH ×2 (15:02→18:21)
[2024-03-25] MEDS: FUROSEMIDE INJ 40 MG/4 ML VIAL 20 MG IV PUSH (15:03)
[2024-03-25] MEDS: AZITHROMYCIN 500 MG/NS 250 ML 500 MG/250 ML BAG 250 MG IVPB (15:04)
[2024-03-25 15:09] LABS: Alveolar/Arterial O2 Gradient 635.6 mmHg; HCO3 ABG 21.2 mEq/l (22.0-26.0); Oxygen Content ABG 14.8 %vol (16.0-22.0); Oxygen Saturation ABG 88.9 % (95.0-100.0); PCO2 ABG 27.9 mmHg (35.0-45.0); Total Hemoglobin 12.3 g/dL (12.0-18.0); pH ABG 7.498 (7.350-7.450)
[2024-03-25 15:10] LABS: PO2 ABG 49.5 mmHg (80.0-100.0)
[2024-03-25 15:11] LABS: Device HIGH FLOW THERAPY; Fractional Inspired Oxygen 93 %; Oxyhemoglobin 85.6 % THb (90.0-100.0); Site Drawn RIGHT BRACHIAL
--- NOTE | 2024-03-25 15:23 | PC.NURSE ---
RN verified DNR status with patient. Pt wishes to remain DNR/DNI and was advised to let us know if her wishes change.
[2024-03-25] MEDS: LORazepam (*CRX) 0.5 MG TABLET PO (15:50)
[2024-03-26] VITALS (29 sets, daily range): BP systolic 90–127; BP diastolic 44–67; PULSE 65–97; RESP 18–27; TEMP 36.2–36.8; O2SAT 72–100
[2024-03-26] MEDS: HYDROCORTISONE SODIUM SUCCINATE 100 MG/2 ML VIAL 50 MG IV PUSH ×5 (01:25→22:36)
[2024-03-26] MEDS: IPRATROPIUM 0.5 MG/ALBUTEROL SULFATE 2.5 MG AMPUL.NEB 3 ML INHALATION ×4 (02:27→20:15)
[2024-03-26 04:57] LABS: Basophils Percent Auto 0.2 % (0.2-1.2); Eosinophils Percent Auto 0.1 % (0-4.4); Hematocrit 33.3 % (37.0-47.0); Hemoglobin 11.2 g/dL (12.0-15.0); Immature Granulocyte Absolute 0.07 K/mm3 (0.00-0.031); Immature Granulocyte Percent A 0.5 % (0-0.5); Lymphocytes Percent Auto 6.6 % (18.3-44.2); Mean Corpuscular HGB Conc 33.6 g/dl (32-36); Mean Corpuscular Hemoglobin 34.1 pg (26-34); Mean Corpuscular Volume 101.5 fl (80-100); Mean Platelet Volume 10.8 fl (7.4-10.4); Monocytes Absolute Auto 0.6 K/mm3 (0.1-0.6); Monocytes Percent Auto 4.4 % (2.6-8.5); Neutrophils Absolute Auto 12.1 K/mm3 (1.3-6.7); Neutrophils Percent Auto 88.2 % (45.5-73.1); Platelet Count Result 373 k/mm3 (150-375); Red Blood Count 3.28 M/mm3 (4.2-5.4); Red Cell Distribution Width 11.8 % (11.5-14.5); White Blood Count 13.7 K/mm3 (4.5-10.0)
[2024-03-26 04:58] LABS: Alveolar/Arterial O2 Gradient 331.4 mmHg; Base Excess ABG -1.7 mEq/l (+/-2.0); Carboxyhemoglobin 0.2 % THb (0-2.0); Fractional Inspired Oxygen 60 %; HCO3 ABG 21.7 mEq/l (22.0-26.0); Methemoglobin ABG 0.1 %THb (0-1.5); Oxygen Content ABG 15.4 %vol (16.0-22.0); Oxygen Saturation ABG 92.4 % (95.0-100.0); Oxyhemoglobin 89.8 % THb (90.0-100.0); PCO2 ABG 32.6 mmHg (35.0-45.0); PO2 ABG 60.5 mmHg (80.0-100.0); PO2 FiO2 Ratio Arterial Blood 1.01 %; Reduced Hemoglobin 9.9 %THb (0-5.0); Total Hemoglobin 12.2 g/dL (12.0-18.0); pH ABG 7.442 (7.350-7.450)
[2024-03-26 04:59] LABS: Device BIPAP; Expiratory Pressure 6 cmH2O; Inspiratory Pressure 12 cmH2O; Modified Allen's Test Pass; Site Drawn RIGHT RADIAL
[2024-03-26 05:14] LABS: Alanine Aminotransferase 34 U/L (6-35); Albumin Level 3.4 g/dL (3.5-5.1); Alkaline Phosphatase 116 U/L (38-126); Anion Gap 9 mmol/L (4-12); Aspartate Amino Transferase 55 U/L (14-36); Bilirubin,Total 0.7 mg/dL (0.2-1.3); Blood Urea Nitrogen 18 mg/dL (7-17); Calcium 9.1 mg/dL (8.4-10.2); Carbon Dioxide 25 mmol/L (22-30); Chloride 104 mmol/L (98-107); Estimated CRCL calculation 105 ml/min; Estimated Glomerular Filt Rate > 60; Glucose 158 mg/dL (65-110); Magnesium 1.9 mg/dL (1.6-2.3); Phosphorus 4.1 mg/dL (2.5-4.5); Potassium 3.3 mmol/L (3.4-5.0); Sodium 138 mmol/L (137-145)
[2024-03-26 05:30] LABS: Procalcitonin 0.2 ng/mL
[2024-03-26] MEDS: CEFEPIME 2 GM/NS 50 ML 2 GM/50 ML BAG IVPB ×3 (05:41→22:07)
[2024-03-26] MEDS: LEVOTHYROXINE SODIUM 150 MCG TABLET 300 MCG PO (05:48)
--- NOTE | 2024-03-26 07:59 | P.PNIM_ITS ---
Progress Note: A&P Assessment and Plan (1) Anxiety: Code(s): F41.9 - Anxiety disorder, unspecified Status: Acute (2) HTN (hypertension): Code(s): I10 - Essential (primary) hypertension Status: Acute (3) Emphysema lung: Code(s): J43.9 - Emphysema, unspecified Status: Acute (4) Elevated LFTs: Code(s): R79.89 - Other specified abnormal findings of blood chemistry Status: Acute (5) Acute respiratory failure with hypoxia: Code(s): J96.01 - Acute respiratory failure with hypoxia Status: Acute (6) Pneumonia: Qualifiers: Laterality: bilateral Lung location: lower lobe of lung Pneumonia type: due to unspecified organism Qualified Code(s): J18.9 - Pneumonia, unspecified organism Code(s): J18.9 - Pneumonia, unspecified organism Status: Acute (7) Acquired hypothyroidism: Code(s): E03.9 - Hypothyroidism, unspecified Status: Acute Plan H&P via Radha Mckeon PA-C This is a very pleasant 53-year-old female smoker with history of lung cancer status post chemoradiation and immunotherapy, emphysema, hypertension, hypothyroidism, diet-controlled diabetes, and anxiety who presented to the emergency department via EMS from urgent care for evaluation of shortness of breath and cough. The patient provides the following history. Over the last 1.5 to 2 weeks she has been experiencing dyspnea on lesser and lesser exertion as well as a wet but nonproductive cough, occasional posttussive emesis, and low- grade fever. She has been taking Advil and is using her inhaler at home without much benefit. She went to urgent care due to increasing shortness of breath and she was found to have an SpO2 of 86% on room air for which she was transferred to the ED. She denies sinus congestion, sore throat, pleuritic pain, orthopnea, edema, paroxysmal nocturnal dyspnea, sensations of racing heart, hemoptysis, nausea, and diarrhea. In the ED: SpO2 has been in the mid 90s on 4 L.. She was afebrile on arrival. The remainder of her vital signs have been stable. Labs were significant for WBC count of 13.4, hemoglobin 12.1, sodium 136, potassium 3.0, BUN 12, creatinine 0.60, AST 60, ALT 37, alkaline phosphatase 127. She tested negative for influenza, RSV, and COVID. Chest x-ray showed hazy opacification the lower lung suspicious for pneumonia. She was given a nebulizer treatment and has been started on antibiotics and she is being admitted in this setting for further treatment. March 24: The patient had been doing well on the 1st night of admission but then desaturated and had shortness of breath in the morning of March 24. On 8 L high-flow nasal cannular her ABG revealed a pH of 7.46, pCO2 27, PO2 46, bicarb 19. She was then placed on 60% FiO2 of Airvo and felt better. Transfer to IMU. Due to this decompensation a CTA chest PE protocol was performed which did not demonstrate a pulmonary embolism. However, it does reveal severe middle and lower lobe pneumonia with prominent emphysema and possibly pulmonary edema. MRSA in the nares negative. Broaden antibiotics to cefepime azithromycin and vancomycin. No sputum culture obtained yet. Blood cultures pending. Monitor leukocytosis. Trend procalcitonin. Replace magnesium. Continue Cornet valve. Continue DuoNebs q.6 hours. Liver enzymes have mostly improved. Continue to trend. Viral hepatitis screen negative. BNP 335. Patient appears euvolemic. Hold off on diuresis for now. Mycoplasma, pneumococcal, Legionella studies are pending. Quad viral screen on admission negative. Portable chest x-ray in the morning. March 25: The patient has decompensated amarilis
[2024-03-26] MEDS: FERROUS SULFATE 325 MG TABLET DR PO (08:33)
[2024-03-26] MEDS: CHOLECALCIFEROL 1,000 UNITS TABLET 2000 UNITS PO (08:33)
[2024-03-26] MEDS: SERTRALINE HCL 50 MG TABLET 150 MG PO (08:33)
[2024-03-26] MEDS: THERAPEUTIC MULTIVITAMINS/MINERALS TAB (*BKC) 1 TABLET PO (08:33)
[2024-03-26] MEDS: busPIRone HCL 10 MG TABLET PO (08:33)
[2024-03-26] MEDS: guaiFENesin 12 HR 600 MG TABCR PO ×2 (08:33→21:57)
[2024-03-26] MEDS: ENOXAPARIN 40 MG/0.4 ML SYRINGE SUB-Q (08:33)
[2024-03-26] MEDS: KCL 20 MEQ/SW 100 ML 100 ML 50 MEQ IVPB (08:34)
[2024-03-26] MEDS: AZITHROMYCIN 500 MG/NS 250 ML 500 MG/250 ML BAG 250 MG IVPB (17:10)
[2024-03-26] MEDS: ACETAMINOPHEN 325 MG TABLET 650 MG PO (21:57)
[2024-03-26] MEDS: LORazepam (*CRX) 0.5 MG TABLET PO (21:57)
[2024-03-27] VITALS (32 sets, daily range): BP systolic 105–129; BP diastolic 53–67; PULSE 63–87; RESP 18–28; TEMP 36.1–36.7; O2SAT 91–100
[2024-03-27] MEDS: IPRATROPIUM 0.5 MG/ALBUTEROL SULFATE 2.5 MG AMPUL.NEB 3 ML INHALATION ×4 (03:03→20:13)
[2024-03-27] MEDS: CEFEPIME 2 GM/NS 50 ML 2 GM/50 ML BAG IVPB ×3 (06:18→21:48)
[2024-03-27] MEDS: HYDROCORTISONE SODIUM SUCCINATE 100 MG/2 ML VIAL 50 MG IV PUSH ×3 (06:19→16:57)
[2024-03-27] MEDS: LEVOTHYROXINE SODIUM 150 MCG TABLET 300 MCG PO (06:44)
[2024-03-27 07:27] LABS: Alveolar/Arterial O2 Gradient 312.5 mmHg; Base Excess ABG -0.6 mEq/l (+/-2.0); Fractional Inspired Oxygen 60 %; HCO3 ABG 22.9 mEq/l (22.0-26.0); Oxygen Content ABG 16.1 %vol (16.0-22.0); Oxygen Saturation ABG 96.1 % (95.0-100.0); Oxyhemoglobin 94.9 % THb (90.0-100.0); PCO2 ABG 33.8 mmHg (35.0-45.0); PO2 ABG 78.1 mmHg (80.0-100.0); pH ABG 7.448 (7.350-7.450)
[2024-03-27 07:28] LABS: Modified Allen's Test Pass; Site Drawn RIGHT RADIAL
[2024-03-27 07:29] LABS: Device BIPAP
[2024-03-27 07:30] LABS: Expiratory Pressure 5 cmH2O
--- NOTE | 2024-03-27 08:07 | PC.NURSE ---
Alert and awake, sitting up in bed. Denies pain or discomfort at this time. AVAP is currently on standby and Airvo is on and functioning at this time. Vital signs are stable. States that she yes , when asked if she rested well throughout the night. Discussed plan of care including medications regimen. Verbalizes understanding and denies further questions at this time. No acute distress noted, workplace trainer and assessor remains on and functioning at this time.
[2024-03-27 08:28] LABS: Basophils Percent Auto 0.1 % (0.2-1.2); Eosinophils Percent Auto 0.1 % (0-4.4); Hematocrit 32.8 % (37.0-47.0); Hemoglobin 11.1 g/dL (12.0-15.0); Immature Granulocyte Absolute 0.09 K/mm3 (0.00-0.031); Immature Granulocyte Percent A 0.6 % (0-0.5); Lymphocytes Absolute Auto 0.93 K/mm3 (0.9-3.2); Lymphocytes Percent Auto 6.1 % (18.3-44.2); Mean Corpuscular HGB Conc 33.8 g/dl (32-36); Mean Corpuscular Hemoglobin 34.7 pg (26-34); Mean Corpuscular Volume 102.5 fl (80-100); Monocytes Absolute Auto 0.5 K/mm3 (0.1-0.6); Monocytes Percent Auto 3.3 % (2.6-8.5); Neutrophils Absolute Auto 13.7 K/mm3 (1.3-6.7); Neutrophils Percent Auto 89.8 % (45.5-73.1); Platelet Count Result 414 k/mm3 (150-375); White Blood Count 15.3 K/mm3 (4.5-10.0)
[2024-03-27] MEDS: ENOXAPARIN 40 MG/0.4 ML SYRINGE SUB-Q (08:36)
[2024-03-27] MEDS: SERTRALINE HCL 50 MG TABLET 150 MG PO (08:36)
[2024-03-27] MEDS: THERAPEUTIC MULTIVITAMINS/MINERALS TAB (*BKC) 1 TABLET PO (08:36)
[2024-03-27] MEDS: CHOLECALCIFEROL 1,000 UNITS TABLET 2000 UNITS PO (08:37)
[2024-03-27] MEDS: busPIRone HCL 10 MG TABLET PO (08:37)
[2024-03-27] MEDS: guaiFENesin 12 HR 600 MG TABCR PO ×2 (08:37→21:47)
[2024-03-27 08:38] LABS: Anion Gap 9 mmol/L (4-12); Blood Urea Nitrogen 21 mg/dL (7-17); Calcium 9.1 mg/dL (8.4-10.2); Carbon Dioxide 25 mmol/L (22-30); Chloride 105 mmol/L (98-107); Estimated CRCL calculation 83 ml/min; Estimated Glomerular Filt Rate > 60; Glucose 244 mg/dL (65-110); Potassium 3.8 mmol/L (3.4-5.0); Sodium 139 mmol/L (137-145)
[2024-03-27] MEDS: levoFLOXacin 750 MG/D5W 150 ML 750 MG/150 ML BAG 100 MG IVPB (09:15)
--- NOTE | 2024-03-27 09:27 | PM.PNPUL ---
Progress Note: A&P Assessment and Plan (1) Pneumonia: Qualifiers: Laterality: bilateral Lung location: lower lobe of lung Pneumonia type: due to unspecified organism Qualified Code(s): J18.9 - Pneumonia, unspecified organism Code(s): J18.9 - Pneumonia, unspecified organism Status: Acute Assessment and Plan: patient presents with 2-3 weeks of an acute respiratory illness. Reportedly she had a CT scan of the chest through her oncology physicians on 03/14/2024 and was told that this looked good with the routine follow-up scan to be performed in 3 months. Patient presents with 2-3 week history of dyspnea on exertion, 2 week history shortness of breath, 1-2 weeks of a dry cough and 3 days of fever, headache and fatigue. She had a leukocytosis of 13.4, CT scan with diffuse interstitial alveolar infiltrates in the right middle lobe, right lower lobe, left lower lobe and lingula. Developed fever on 03/24 and her procalcitonin on 03/25 is 0.3. COVID, influenza and RSV RT PCR studies negative on 03/23. Blood cultures negative from 03/23. Initially treated with ceftriaxone and azithromycin on 03/23 and changed to vancomycin, cefepime and azithromycin continued on 03/24. 03/25/24: overall the patient tells me that she has a little bit better. She says she has 10% back to her normal. The cough is better, headache and fatigue are the same. White blood cell count 12.9, creatinine 0.5. Chest x-ray demonstrates bibasilar interstitial alveolar infiltrates worse compared with 03/23/2024. The patient was on high-flow nasal cannula oxygen at 50 L and 77% FiO2 with saturations 85% with talking and activity in bed and 91% at rest in bed. Plan: I will continue cefepime, day 2, azithromycin, day 3, and can discontinue vancomycin as her MRSA nasal swab is negative. I will repeat a COVID, influenza and RSV RT PCR study. I will send an extended respiratory pathogen panel to [employer]. Legionella urine antigen, pneumococcal urine antigen and mycoplasma IgM titer are pending. I will check echocardiogram to assess LV, RV and PASP. Later in the day patient had worsening respiratory status with hypoxemia and ABG on high-flow 60 L 93% was 7.50/28/50. placed on BiPAP rate of 12, pressures 12/6 and 60%. Repeat COVID, influenza and RSV swab negative. Steroids for severe community-acquired pneumonia started. Lasix was given. Echocardiogram with LVEF 60-65, grade 1 diastolic dysfunction, trace mitral regurg, trace tricuspid regurg with a PASP of 19. Negative bubble study. RV normal size and function. RA normal size. 03/26/24: Patient wore the BiPAP overnight and is currently on high-flow nasal cannula 60 L and 90% FiO2 with saturations 91%. Overall the patient tells me she is doing much better. She is breathing easier and has more energy. She has less brain fog. Her cough is improved but persists and she has no hemoptysis with minimal phlegm. She is afebrile. She tells me she has 40% back to her normal. Her white blood cell count is 13.7, creatinine is 0.5, Diuresed 660 mL yesterday. Cumulative she is +600 since admission her weight is 62.9 with an admission weight of 62.1. Chest x-ray today shows bibasilar interstitial infiltrates with no change compared to 03/25. She said the BiPAP pressures were somewhat uncomfortable and I placed her on a AVAPS mode and adjusted to comfort resulting in a rate of 20, tidal volume 500, EPAP 5, minimal inspiratory pressure 6, maximal inspiratory pressure 25, inspiratory time 1.0, rise of 5 and 60% FiO2. Plan: I will continue cefepime, day 3, azithromycin, day 4. Vancomycin DC as her MRSA nasal swab is negative. Repeat a COVID, influenza and RSV RT PCR study is negative. Extended respiratory pathogen panel to [facility], Legionella urine antigen, pneumococcal urine antigen and mycoplasma IgM titer are pending. Echo with grade 1 diastolic dysfunction with a PASP of 19 normal RV and RA and a nega
[2024-03-27 11:44] LABS: Glucose Point of Care 206 mg/dl (65-105)
[2024-03-27] MEDS: INSULIN ASPART (*BKC) 100 UNITS/ML SUB-Q (12:29)
[2024-03-27 16:11] LABS: Glucose Point of Care 180 mg/dl (65-105)
[2024-03-27] MEDS: AZITHROMYCIN 500 MG/NS 250 ML 500 MG/250 ML BAG 250 MG IVPB (16:57)
[2024-03-27 20:06] LABS: Glucose Point of Care 179 mg/dl (65-105)
[2024-03-27] MEDS: LORazepam (*CRX) 0.5 MG TABLET PO (21:47)
[2024-03-27] MEDS: ACETAMINOPHEN 325 MG TABLET 650 MG PO (21:47)
[2024-03-28] VITALS (36 sets, daily range): BP systolic 123–141; BP diastolic 6–83; PULSE 60–91; RESP 18–25; TEMP 35.6–37.4; O2SAT 92–100
[2024-03-28] MEDS: IPRATROPIUM 0.5 MG/ALBUTEROL SULFATE 2.5 MG AMPUL.NEB 3 ML INHALATION ×4 (02:35→20:13)
[2024-03-28] MEDS: CEFEPIME 2 GM/NS 50 ML 2 GM/50 ML BAG IVPB ×3 (05:46→21:39)
[2024-03-28] MEDS: HYDROCORTISONE SODIUM SUCCINATE 100 MG/2 ML VIAL 50 MG IV PUSH ×5 (05:47→23:43)
[2024-03-28] MEDS: LEVOTHYROXINE SODIUM 150 MCG TABLET 300 MCG PO (05:47)
[2024-03-28 06:04] LABS: Basophils Percent Auto 0.1 % (0.2-1.2); Eosinophils Percent Auto 0.1 % (0-4.4); Hematocrit 31.8 % (37.0-47.0); Hemoglobin 10.6 g/dL (12.0-15.0); Immature Granulocyte Absolute 0.09 K/mm3 (0.00-0.031); Immature Granulocyte Percent A 0.6 % (0-0.5); Lymphocytes Percent Auto 8.1 % (18.3-44.2); Mean Corpuscular HGB Conc 33.3 g/dl (32-36); Mean Corpuscular Hemoglobin 34.8 pg (26-34); Mean Corpuscular Volume 104.3 fl (80-100); Mean Platelet Volume 10.9 fl (7.4-10.4); Monocytes Absolute Auto 0.7 K/mm3 (0.1-0.6); Monocytes Percent Auto 4.4 % (2.6-8.5); Neutrophils Absolute Auto 12.8 K/mm3 (1.3-6.7); Neutrophils Percent Auto 86.7 % (45.5-73.1); Platelet Count Result 424 k/mm3 (150-375); Red Blood Count 3.05 M/mm3 (4.2-5.4); Red Cell Distribution Width 12.2 % (11.5-14.5); White Blood Count 14.8 K/mm3 (4.5-10.0)
[2024-03-28 06:12] LABS: Hemoglobin A1C 6.1 % (<5.7)
[2024-03-28 06:14] LABS: Alanine Aminotransferase 64 U/L (6-35); Alkaline Phosphatase 103 U/L (38-126); Anion Gap 7 mmol/L (4-12); Aspartate Amino Transferase 95 U/L (14-36); Bilirubin,Total 0.4 mg/dL (0.2-1.3); Blood Urea Nitrogen 20 mg/dL (7-17); Carbon Dioxide 26 mmol/L (22-30); Chloride 107 mmol/L (98-107); Estimated CRCL calculation 85 ml/min; Estimated Glomerular Filt Rate > 60; Glucose 164 mg/dL (65-110); Magnesium 1.9 mg/dL (1.6-2.3); Potassium 3.3 mmol/L (3.4-5.0); Sodium 140 mmol/L (137-145)
[2024-03-28 06:54] LABS: Glucose Point of Care 165 mg/dl (65-105)
[2024-03-28] MEDS: CHOLECALCIFEROL 1,000 UNITS TABLET 2000 UNITS PO (08:41)
[2024-03-28] MEDS: ENOXAPARIN 40 MG/0.4 ML SYRINGE SUB-Q (08:41)
[2024-03-28] MEDS: levoFLOXacin 750 MG/D5W 150 ML 750 MG/150 ML BAG 100 MG IVPB (08:41)
[2024-03-28] MEDS: busPIRone HCL 10 MG TABLET PO (08:42)
[2024-03-28] MEDS: THERAPEUTIC MULTIVITAMINS/MINERALS TAB (*BKC) 1 TABLET PO (08:42)
[2024-03-28] MEDS: POTASSIUM CHLORIDE 20 MEQ ER TABLET PO (08:42)
[2024-03-28] MEDS: FERROUS SULFATE 325 MG TABLET DR PO (08:42)
[2024-03-28] MEDS: SERTRALINE HCL 50 MG TABLET 150 MG PO (08:42)
[2024-03-28] MEDS: guaiFENesin 12 HR 600 MG TABCR PO ×2 (08:42→21:38)
[2024-03-28 11:23] LABS: Glucose Point of Care 372 mg/dl (65-105)
[2024-03-28] MEDS: INSULIN ASPART (*BKC) 100 UNITS/ML SUB-Q (11:37)
[2024-03-28 15:53] LABS: Glucose Point of Care 117 mg/dl (65-105)
[2024-03-28 17:38] LABS: Adenovirus DNA Not Detected (Not Detected); Chlamydophila pneumoniae Not Detected (Not Detected); Coronavirus 229E Not Detected (Not Detected); Coronavirus HKU1 Not Detected (Not Detected); Coronavirus NL63 Not Detected (Not Detected); Coronavirus OC43 Not Detected (Not Detected); Human Metapneumovirus Not Detected (Not Detected); Human Parainfluenza Virus 1 Not Detected (Not Detected); Human Parainfluenza Virus 2 Not Detected (Not Detected); Human Parainfluenza Virus 3 Not Detected (Not Detected); Human Parainfluenza Virus 4 Not Detected (Not Detected); Human RSV B Not Detected (Not Detected); Influenza A Not Detected (Not Detected); Influenza B Not Detected (Not Detected); Mycoplasma pneumoniae Not Detected (Not Detected); Rhinovirus/Enterovirus Not Detected (Not Detected)
[2024-03-28 19:34] LABS: Pneumococcal Antigen Urine NOT DETECTED
[2024-03-28 19:48] LABS: Glucose Point of Care 146 mg/dl (65-105)
[2024-03-28] MEDS: LORazepam (*CRX) 0.5 MG TABLET PO (21:38)
[2024-03-28] MEDS: ACETAMINOPHEN 325 MG TABLET 650 MG PO (21:38)
[2024-03-29] VITALS (26 sets, daily range): BP systolic 123–135; BP diastolic 65–78; PULSE 60–97; RESP 14–52; TEMP 36.1–37.3; O2SAT 89–98; BMI 20.1
[2024-03-29] MEDS: IPRATROPIUM 0.5 MG/ALBUTEROL SULFATE 2.5 MG AMPUL.NEB 3 ML INHALATION ×4 (01:42→20:40)
[2024-03-29] MEDS: CEFEPIME 2 GM/NS 50 ML 2 GM/50 ML BAG IVPB ×3 (05:34→22:21)
[2024-03-29] MEDS: HYDROCORTISONE SODIUM SUCCINATE 100 MG/2 ML VIAL 50 MG IV PUSH ×4 (05:35→23:05)
[2024-03-29] MEDS: LEVOTHYROXINE SODIUM 150 MCG TABLET 300 MCG PO (05:35)
[2024-03-29 05:48] LABS: Basophils Percent Auto 0.3 % (0.2-1.2); Eosinophils Percent Auto 0.2 % (0-4.4); Hematocrit 33.5 % (37.0-47.0); Immature Granulocyte Absolute 0.13 K/mm3 (0.00-0.031); Immature Granulocyte Percent A 0.8 % (0-0.5); Lymphocytes Absolute Auto 1.53 K/mm3 (0.9-3.2); Lymphocytes Percent Auto 9.8 % (18.3-44.2); Mean Corpuscular HGB Conc 32.8 g/dl (32-36); Mean Corpuscular Hemoglobin 34.4 pg (26-34); Mean Corpuscular Volume 104.7 fl (80-100); Mean Platelet Volume 10.7 fl (7.4-10.4); Monocytes Absolute Auto 0.5 K/mm3 (0.1-0.6); Monocytes Percent Auto 3.5 % (2.6-8.5); Neutrophils Absolute Auto 13.3 K/mm3 (1.3-6.7); Neutrophils Percent Auto 85.4 % (45.5-73.1); Platelet Count Result 440 k/mm3 (150-375); Red Cell Distribution Width 12.1 % (11.5-14.5); White Blood Count 15.6 K/mm3 (4.5-10.0)
[2024-03-29 06:02] LABS: Alanine Aminotransferase 91 U/L (6-35); Albumin Level 3.1 g/dL (3.5-5.1); Alkaline Phosphatase 102 U/L (38-126); Anion Gap 6 mmol/L (4-12); Aspartate Amino Transferase 103 U/L (14-36); Bilirubin,Total 0.4 mg/dL (0.2-1.3); Blood Urea Nitrogen 18 mg/dL (7-17); Calcium 9.1 mg/dL (8.4-10.2); Carbon Dioxide 29 mmol/L (22-30); Chloride 105 mmol/L (98-107); Estimated CRCL calculation 100 ml/min; Estimated Glomerular Filt Rate > 60; Glucose 139 mg/dL (65-110); Magnesium 1.7 mg/dL (1.6-2.3); Potassium 3.2 mmol/L (3.4-5.0); Sodium 140 mmol/L (137-145)
[2024-03-29 06:58] LABS: Glucose Point of Care 145 mg/dl (65-105)
[2024-03-29 08:08] LABS: Procalcitonin 0.1 ng/mL
[2024-03-29] MEDS: CHOLECALCIFEROL 1,000 UNITS TABLET 2000 UNITS PO (08:12)
[2024-03-29] MEDS: guaiFENesin 12 HR 600 MG TABCR PO ×2 (08:13→20:12)
[2024-03-29] MEDS: busPIRone HCL 10 MG TABLET PO (08:13)
[2024-03-29] MEDS: ENOXAPARIN 40 MG/0.4 ML SYRINGE SUB-Q (08:13)
[2024-03-29] MEDS: THERAPEUTIC MULTIVITAMINS/MINERALS TAB (*BKC) 1 TABLET PO (08:13)
[2024-03-29] MEDS: SERTRALINE HCL 50 MG TABLET 150 MG PO (08:13)
[2024-03-29] MEDS: levoFLOXacin 750 MG/D5W 150 ML 750 MG/150 ML BAG 100 MG IVPB (08:14)
[2024-03-29 11:26] LABS: Glucose Point of Care 269 mg/dl (65-105)
[2024-03-29] MEDS: INSULIN ASPART (*BKC) 100 UNITS/ML SUB-Q ×2 (11:37→20:14)
[2024-03-29 16:14] LABS: Glucose Point of Care 140 mg/dl (65-105)
[2024-03-29 17:54] LABS: Mycoplasma IgM Antibody Titer 95 U/mL
[2024-03-29 20:12] LABS: Glucose Point of Care 241 mg/dl (65-105)
[2024-03-29] MEDS: ACETAMINOPHEN 325 MG TABLET 650 MG PO (22:17)
[2024-03-29] MEDS: LORazepam (*CRX) 0.5 MG TABLET PO (22:17)
[2024-03-30] VITALS (28 sets, daily range): BP systolic 133–154; BP diastolic 76–86; PULSE 57–97; RESP 12–24; TEMP 36.4–37.1; O2SAT 83–99
[2024-03-30] MEDS: IPRATROPIUM 0.5 MG/ALBUTEROL SULFATE 2.5 MG AMPUL.NEB 3 ML INHALATION ×4 (02:04→20:01)
[2024-03-30] MEDS: CEFEPIME 2 GM/NS 50 ML 2 GM/50 ML BAG IVPB ×3 (05:11→21:47)
[2024-03-30] MEDS: HYDROCORTISONE SODIUM SUCCINATE 100 MG/2 ML VIAL 50 MG IV PUSH ×2 (05:11→21:47)
[2024-03-30] MEDS: LEVOTHYROXINE SODIUM 150 MCG TABLET 300 MCG PO (05:52)
[2024-03-30 06:12] LABS: Basophils Percent Auto 0.1 % (0.2-1.2); Eosinophils Percent Auto 0.3 % (0-4.4); Hemoglobin 10.3 g/dL (12.0-15.0); Immature Granulocyte Absolute 0.16 K/mm3 (0.00-0.031); Lymphocytes Absolute Auto 1.72 K/mm3 (0.9-3.2); Lymphocytes Percent Auto 10.9 % (18.3-44.2); Mean Corpuscular HGB Conc 33.2 g/dl (32-36); Mean Corpuscular Hemoglobin 34.1 pg (26-34); Mean Corpuscular Volume 102.6 fl (80-100); Mean Platelet Volume 10.7 fl (7.4-10.4); Monocytes Absolute Auto 0.5 K/mm3 (0.1-0.6); Monocytes Percent Auto 3.1 % (2.6-8.5); Neutrophils Absolute Auto 13.4 K/mm3 (1.3-6.7); Neutrophils Percent Auto 84.6 % (45.5-73.1); Platelet Count Result 413 k/mm3 (150-375); Red Blood Count 3.02 M/mm3 (4.2-5.4); White Blood Count 15.8 K/mm3 (4.5-10.0)
[2024-03-30 06:24] LABS: Alanine Aminotransferase 80 U/L (6-35); Albumin Level 2.9 g/dL (3.5-5.1); Alkaline Phosphatase 93 U/L (38-126); Anion Gap 5 mmol/L (4-12); Aspartate Amino Transferase 62 U/L (14-36); Bilirubin,Total 0.4 mg/dL (0.2-1.3); Blood Urea Nitrogen 18 mg/dL (7-17); Calcium 8.7 mg/dL (8.4-10.2); Carbon Dioxide 30 mmol/L (22-30); Chloride 105 mmol/L (98-107); Estimated CRCL calculation 101 ml/min; Estimated Glomerular Filt Rate > 60; Glucose 154 mg/dL (65-110); Magnesium 1.8 mg/dL (1.6-2.3); Potassium 2.9 mmol/L (3.4-5.0); Sodium 140 mmol/L (137-145)
[2024-03-30 06:54] LABS: Glucose Point of Care 166 mg/dl (65-105)
[2024-03-30] MEDS: MAGNESIUM SULF 1 GM/D5W 100 ML 1 GM/100 ML BAG IVPB (08:10)
[2024-03-30] MEDS: POTASSIUM CHLORIDE 20 MEQ ER TABLET 40 MEQ PO (08:20)
[2024-03-30] MEDS: KCL 20 MEQ/SW 100 ML 100 ML 50 MEQ IVPB (08:21)
[2024-03-30] MEDS: SERTRALINE HCL 50 MG TABLET 150 MG PO (08:29)
[2024-03-30] MEDS: busPIRone HCL 10 MG TABLET PO (08:30)
[2024-03-30] MEDS: CHOLECALCIFEROL 1,000 UNITS TABLET 2000 UNITS PO (08:30)
[2024-03-30] MEDS: guaiFENesin 12 HR 600 MG TABCR PO ×2 (08:31→19:52)
[2024-03-30] MEDS: FERROUS SULFATE 325 MG TABLET DR PO (08:31)
[2024-03-30] MEDS: ENOXAPARIN 40 MG/0.4 ML SYRINGE SUB-Q (08:31)
[2024-03-30] MEDS: THERAPEUTIC MULTIVITAMINS/MINERALS TAB (*BKC) 1 TABLET PO (08:32)
[2024-03-30] MEDS: levoFLOXacin 750 MG/D5W 150 ML 750 MG/150 ML BAG 100 MG IVPB (11:36)
[2024-03-30] MEDS: INSULIN ASPART (*BKC) 100 UNITS/ML SUB-Q (11:40)
[2024-03-30] MEDS: WATER FOR IRRIGATION, STERILE 1,000 ML BOTTLE 1000 ML (11:43)
[2024-03-30 11:54] LABS: Glucose Point of Care 318 mg/dl (65-105)
[2024-03-30 16:57] LABS: Glucose Point of Care 137 mg/dl (65-105)
[2024-03-30] MEDS: ACETAMINOPHEN 325 MG TABLET 650 MG PO (19:52)
[2024-03-30 20:16] LABS: Glucose Point of Care 128 mg/dl (65-105)
[2024-03-30] MEDS: LORazepam (*CRX) 0.5 MG TABLET PO (21:48)
[2024-03-31] VITALS (29 sets, daily range): BP systolic 125–144; BP diastolic 72–88; PULSE 61–94; RESP 16–20; TEMP 36.6–37.1; O2SAT 91–98
[2024-03-31] MEDS: IPRATROPIUM 0.5 MG/ALBUTEROL SULFATE 2.5 MG AMPUL.NEB 3 ML INHALATION ×4 (02:23→20:36)
[2024-03-31] MEDS: CEFEPIME 2 GM/NS 50 ML 2 GM/50 ML BAG IVPB ×3 (06:26→21:08)
[2024-03-31] MEDS: LEVOTHYROXINE SODIUM 150 MCG TABLET 300 MCG PO (06:26)
[2024-03-31 06:33] LABS: Glucose Point of Care 128 mg/dl (65-105)
[2024-03-31 06:34] LABS: Hemoglobin 10.7 g/dL (12.0-15.0); Mean Corpuscular HGB Conc 33.4 g/dl (32-36); Mean Corpuscular Hemoglobin 34.2 pg (26-34); Mean Corpuscular Volume 102.2 fl (80-100); Mean Platelet Volume 10.3 fl (7.4-10.4); Platelet Count Result 422 k/mm3 (150-375); Red Blood Count 3.13 M/mm3 (4.2-5.4); Red Cell Distribution Width 12.1 % (11.5-14.5); White Blood Count 14.5 K/mm3 (4.5-10.0)
[2024-03-31 06:47] LABS: Alanine Aminotransferase 96 U/L (6-35); Albumin Level 2.8 g/dL (3.5-5.1); Alkaline Phosphatase 98 U/L (38-126); Anion Gap 4 mmol/L (4-12); Aspartate Amino Transferase 80 U/L (14-36); Bilirubin,Total 0.3 mg/dL (0.2-1.3); Blood Urea Nitrogen 14 mg/dL (7-17); Calcium 8.6 mg/dL (8.4-10.2); Carbon Dioxide 30 mmol/L (22-30); Chloride 105 mmol/L (98-107); Estimated CRCL calculation 101 ml/min; Estimated Glomerular Filt Rate > 60; Glucose 122 mg/dL (65-110); Magnesium 1.8 mg/dL (1.6-2.3); Potassium 3.2 mmol/L (3.4-5.0); Sodium 139 mmol/L (137-145)
[2024-03-31 07:03] LABS: Procalcitonin 0.2 ng/mL
--- NOTE | 2024-03-31 07:40 | PM.IMPN ---
Progress Note: A&P Assessment and Plan (1) Anxiety: Code(s): F41.9 - Anxiety disorder, unspecified Status: Acute (2) HTN (hypertension): Code(s): I10 - Essential (primary) hypertension Status: Acute (3) Emphysema lung: Code(s): J43.9 - Emphysema, unspecified Status: Acute (4) Elevated LFTs: Code(s): R79.89 - Other specified abnormal findings of blood chemistry Status: Acute (5) Acute respiratory failure with hypoxia: Code(s): J96.01 - Acute respiratory failure with hypoxia Status: Acute (6) Pneumonia: Qualifiers: Laterality: bilateral Lung location: lower lobe of lung Pneumonia type: due to unspecified organism Qualified Code(s): J18.9 - Pneumonia, unspecified organism Code(s): J18.9 - Pneumonia, unspecified organism Status: Acute (7) Acquired hypothyroidism: Code(s): E03.9 - Hypothyroidism, unspecified Status: Acute Plan H&P via Radha Mckeon PA-C on 03/23/2024 This is a very pleasant 53-year-old female smoker with history of lung cancer status post chemoradiation and immunotherapy, emphysema, hypertension, hypothyroidism, diet-controlled diabetes, and anxiety who presented to the emergency department via EMS from urgent care for evaluation of shortness of breath and cough. The patient provides the following history. Over the last 1.5 to 2 weeks she has been experiencing dyspnea on lesser and lesser exertion as well as a wet but nonproductive cough, occasional posttussive emesis, and low-grade fever. She has been taking Advil and is using her inhaler at home without much benefit. She went to urgent care due to increasing shortness of breath and she was found to have an SpO2 of 86% on room air for which she was transferred to the ED. She denies sinus congestion, sore throat, pleuritic pain, orthopnea, edema, paroxysmal nocturnal dyspnea, sensations of racing heart, hemoptysis, nausea, and diarrhea. In the ED: SpO2 has been in the mid 90s on 4 L.. She was afebrile on arrival. The remainder of her vital signs have been stable. Labs were significant for WBC count of 13.4, hemoglobin 12.1, sodium 136, potassium 3.0, BUN 12, creatinine 0.60, AST 60, ALT 37, alkaline phosphatase 127. She tested negative for influenza, RSV, and COVID. Chest x-ray showed hazy opacification the lower lung suspicious for pneumonia. She was given a nebulizer treatment and has been started on antibiotics and she is being admitted in this setting for further treatment. ----- Early in her hospital course she decompensated, she was placed on noninvasive ventilator combined with Airvo 90%. Her breathing was extremely labored. She was on the cusp of end of life. She did not want intubation. NIV improved her symptoms. A CTA chest was performed on 03/24/2024 which revealed severe bilateral pneumonia and prominent emphysema. Left upper lobe post radiation scarring. She received antibiotics, schedule nebulizers, Cornet therapy, guaifenesin. She has not provided a sputum sample. Pulmonology consulted, she was started on hydrocortisone 50 mg IV push q.6 hours started. Since then, she has slowly but surely improved. She is now on 7 L of high-flow nasal cannula on 03/31/24. She feels 75% back to her baseline while resting. She still has an active dry cough but it is improved. Night sweats have resolved. Afebrile. She still has exertional dyspnea. She is on day 7 of cefepime, status post azithromycin, day 5 of Levaquin. We have begun to wean down hydrocortisone now to b.i.d. dosing. Quad viral screen negative. Complete respiratory pathogen panel sent out negative. Blood cultures on March 23 negative, final report. Transaminitis. Stable. Heavy alcohol use versus hydrocortisone? Viral hepatitis screen negative. Continue to wean oxygen as tolerated. Follow-up pulmonology recs. She has an elevated white count which is improving and her procalcitonin is low. She has silva
[2024-03-31] MEDS: ENOXAPARIN 40 MG/0.4 ML SYRINGE SUB-Q (10:13)
[2024-03-31] MEDS: CHOLECALCIFEROL 1,000 UNITS TABLET 2000 UNITS PO (10:13)
[2024-03-31] MEDS: POTASSIUM CHLORIDE 20 MEQ ER TABLET 40 MEQ PO (10:14)
[2024-03-31] MEDS: guaiFENesin 12 HR 600 MG TABCR PO ×2 (10:14→21:08)
[2024-03-31] MEDS: busPIRone HCL 10 MG TABLET PO (10:14)
[2024-03-31] MEDS: THERAPEUTIC MULTIVITAMINS/MINERALS TAB (*BKC) 1 TABLET PO (10:14)
[2024-03-31] MEDS: levoFLOXacin 750 MG/D5W 150 ML 750 MG/150 ML BAG 100 MG IVPB (10:15)
[2024-03-31] MEDS: HYDROCORTISONE SODIUM SUCCINATE 100 MG/2 ML VIAL 50 MG IV PUSH ×2 (10:15→21:07)
[2024-03-31] MEDS: SERTRALINE HCL 50 MG TABLET 150 MG PO (10:15)
[2024-03-31 11:57] LABS: Glucose Point of Care 256 mg/dl (65-105)
[2024-03-31] MEDS: INSULIN ASPART (*BKC) 100 UNITS/ML SUB-Q (12:08)
[2024-03-31 17:01] LABS: Glucose Point of Care 164 mg/dl (65-105)
[2024-03-31 20:53] LABS: Glucose Point of Care 168 mg/dl (65-105)
[2024-03-31] MEDS: LORazepam (*CRX) 0.5 MG TABLET PO (21:10)
[2024-03-31] MEDS: ACETAMINOPHEN 325 MG TABLET 650 MG PO (21:10)
[2024-04-01] VITALS (24 sets, daily range): BP systolic 118–140; BP diastolic 69–82; PULSE 56–94; RESP 16–24; TEMP 35.8–37.6; O2SAT 93–100
[2024-04-01] MEDS: IPRATROPIUM 0.5 MG/ALBUTEROL SULFATE 2.5 MG AMPUL.NEB 3 ML INHALATION ×4 (01:15→20:12)
[2024-04-01] MEDS: CEFEPIME 2 GM/NS 50 ML 2 GM/50 ML BAG IVPB (05:09)
[2024-04-01] MEDS: LEVOTHYROXINE SODIUM 150 MCG TABLET 300 MCG PO (05:09)
[2024-04-01 05:18] LABS: Basophils Percent Auto 0.1 % (0.2-1.2); Eosinophils Absolute Auto 0.2 K/mm3 (0-0.3); Eosinophils Percent Auto 1.2 % (0-4.4); Hematocrit 31.6 % (37.0-47.0); Hemoglobin 10.7 g/dL (12.0-15.0); Immature Granulocyte Absolute 0.14 K/mm3 (0.00-0.031); Lymphocytes Absolute Auto 1.73 K/mm3 (0.9-3.2); Lymphocytes Percent Auto 11.8 % (18.3-44.2); Mean Corpuscular HGB Conc 33.9 g/dl (32-36); Mean Corpuscular Hemoglobin 34.9 pg (26-34); Mean Corpuscular Volume 102.9 fl (80-100); Mean Platelet Volume 10.3 fl (7.4-10.4); Monocytes Absolute Auto 0.4 K/mm3 (0.1-0.6); Monocytes Percent Auto 2.9 % (2.6-8.5); Neutrophils Absolute Auto 12.2 K/mm3 (1.3-6.7); Platelet Count Result 434 k/mm3 (150-375); Red Blood Count 3.07 M/mm3 (4.2-5.4); Red Cell Distribution Width 12.1 % (11.5-14.5); White Blood Count 14.7 K/mm3 (4.5-10.0)
[2024-04-01 05:31] LABS: Anion Gap 5 mmol/L (4-12); Blood Urea Nitrogen 13 mg/dL (7-17); Calcium 8.7 mg/dL (8.4-10.2); Carbon Dioxide 30 mmol/L (22-30); Chloride 104 mmol/L (98-107); Estimated CRCL calculation 96 ml/min; Estimated Glomerular Filt Rate > 60; Glucose 155 mg/dL (65-110); Magnesium 1.8 mg/dL (1.6-2.3); Potassium 3.7 mmol/L (3.4-5.0); Sodium 139 mmol/L (137-145)
[2024-04-01] MEDS: CHOLECALCIFEROL 1,000 UNITS TABLET 2000 UNITS PO (08:19)
[2024-04-01] MEDS: THERAPEUTIC MULTIVITAMINS/MINERALS TAB (*BKC) 1 TABLET PO (08:19)
[2024-04-01] MEDS: SERTRALINE HCL 50 MG TABLET 150 MG PO (08:19)
[2024-04-01] MEDS: guaiFENesin 12 HR 600 MG TABCR PO ×2 (08:20→20:39)
[2024-04-01] MEDS: busPIRone HCL 10 MG TABLET PO (08:20)
[2024-04-01] MEDS: ENOXAPARIN 40 MG/0.4 ML SYRINGE SUB-Q (08:20)
[2024-04-01] MEDS: FERROUS SULFATE 325 MG TABLET DR PO (08:20)
[2024-04-01] MEDS: HYDROCORTISONE SODIUM SUCCINATE 100 MG/2 ML VIAL 50 MG IV PUSH ×2 (08:20→20:39)
[2024-04-01] MEDS: levoFLOXacin 750 MG/D5W 150 ML 750 MG/150 ML BAG 100 MG IVPB (08:20)
--- NOTE | 2024-04-01 12:25 | P.PNPL_ITS ---
Progress Note: A&P Assessment and Plan (1) Pneumonia: Qualifiers: Laterality: bilateral Lung location: lower lobe of lung Pneumonia type: due to unspecified organism Qualified Code(s): J18.9 - Pneumonia, unspecified organism Code(s): J18.9 - Pneumonia, unspecified organism Status: Acute Assessment and Plan: Pneumonia, unspecified organism Status: Acute Assessment and Plan: patient presents with 2-3 weeks of an acute respiratory illness. Reportedly she had a CT scan of the chest through her oncology physicians on 03/14/2024 and was told that this looked good with the routine follow-up scan to be performed in 3 months. Patient presents with 2-3 week history of dyspnea on exertion, 2 week history shortness of breath, 1-2 weeks of a dry cough and 3 days of fever, headache and fatigue. She had a leukocytosis of 13.4, CT scan with diffuse interstitial alveolar infiltrates in the right middle lobe, right lower lobe, left lower lobe and lingula. Developed fever on 03/24 and her procalcitonin on 03/25 is 0.3. COVID, influenza and RSV RT PCR studies negative on 03/23. Blood cultures negative from 03/23. Initially treated with ceftriaxone and azithromycin on 03/23 and changed to vancomycin, cefepime and azithromycin continued on 03/24. 03/25/24: overall the patient tells me that she has a little bit better. She says she has 10% back to her normal. The cough is better, headache and fatigue are the same. White blood cell count 12.9, creatinine 0.5. Chest x-ray demonstrates bibasilar interstitial alveolar infiltrates worse compared with 03/23/2024. The patient was on high-flow nasal cannula oxygen at 50 L and 77% FiO2 with saturations 85% with talking and activity in bed and 91% at rest in bed. Plan: I will continue cefepime, day 2, azithromycin, day 3, and can discontinue vancomycin as her MRSA nasal swab is negative. I will repeat a COVID, influenza and RSV RT PCR study. I will send an extended respiratory pathogen panel to [employer]. Legionella urine antigen, pneumococcal urine antigen and mycoplasma IgM titer are pending. I will check echocardiogram to assess LV, RV and PASP. Later in the day patient had worsening respiratory status with hypoxemia and ABG on high-flow 60 L 93% was 7.50/28/50. placed on BiPAP rate of 12, pressures 12/6 and 60%. Repeat COVID, influenza and RSV swab negative. Steroids for severe community-acquired pneumonia started. Lasix was given. Echocardiogram with LVEF 60-65, grade 1 diastolic dysfunction, trace mitral regurg, trace tricuspid regurg with a PASP of 19. Negative bubble study. RV normal size and function. RA normal size. 03/26/24: Patient wore the BiPAP overnight and is currently on high-flow nasal cannula 60 L and 90% FiO2 with saturations 91%. Overall the patient tells me she is doing much better. She is breathing easier and has more energy. She has less brain fog. Her cough is improved but persists and she has no hemoptysis with minimal phlegm. She is afebrile. She tells me she has 40% back to her normal. Her white blood cell count is 13.7, creatinine is 0.5, Diuresed 660 mL yesterday. Cumulative she is +600 since admission her weight is 62.9 with an admission weight of 62.1. Chest x-ray today shows bibasilar interstitial infiltrates with no change compared to 03/25. She said the BiPAP pressures were somewhat uncomfortable and I placed her on a AVAPS mode and adjusted to comfort resulting in a rate of 20, tidal volume 500, EPAP 5, minimal inspiratory pressure 6, maximal inspiratory pressure 25, inspiratory time 1.0, rise of 5 and 60% FiO2. Plan: I will continue cefepime, day 3, azithromycin, day 4. Vancomycin DC as h
[2024-04-01 12:30] LABS: Glucose Point of Care 110 mg/dl (65-105)
[2024-04-01] MEDS: CEFDINIR 300 MG CAPSULE PO ×2 (13:08→20:39)
[2024-04-01 16:25] LABS: Glucose Point of Care 216 mg/dl (65-105)
--- NOTE | 2024-04-01 17:00 | PC.NURSE ---
This patient, Joanie Damon, was received from [place] [id number] on 04/01/24 at 1700 . Patient/family oriented to unit policies and routines
[2024-04-01 18:23] LABS: Glucose Point of Care 113 mg/dl (65-105)
[2024-04-01 20:19] LABS: Glucose Point of Care 245 mg/dl (65-105)
[2024-04-01] MEDS: LORazepam (*CRX) 0.5 MG TABLET PO (20:39)
[2024-04-01] MEDS: INSULIN ASPART (*BKC) 100 UNITS/ML SUB-Q (20:40)
--- NOTE | 2024-04-01 21:10 | P.PNIM_ITS ---
Progress Note: A&P Assessment and Plan (1) Anxiety: Code(s): F41.9 - Anxiety disorder, unspecified Status: Acute (2) HTN (hypertension): Code(s): I10 - Essential (primary) hypertension Status: Acute (3) Emphysema lung: Code(s): J43.9 - Emphysema, unspecified Status: Acute (4) Elevated LFTs: Code(s): R79.89 - Other specified abnormal findings of blood chemistry Status: Acute (5) Acute respiratory failure with hypoxia: Code(s): J96.01 - Acute respiratory failure with hypoxia Status: Acute (6) Pneumonia: Qualifiers: Laterality: bilateral Lung location: lower lobe of lung Pneumonia type: due to unspecified organism Qualified Code(s): J18.9 - Pneumonia, unspecified organism Code(s): J18.9 - Pneumonia, unspecified organism Status: Acute (7) Acquired hypothyroidism: Code(s): E03.9 - Hypothyroidism, unspecified Status: Acute Plan H&P via Radha Mckeon PA-C on 03/23/2024 This is a very pleasant 53-year-old female smoker with history of lung cancer status post chemoradiation and immunotherapy, emphysema, hypertension, hypothyroidism, diet-controlled diabetes, and anxiety who presented to the emergency department via EMS from urgent care for evaluation of shortness of breath and cough. The patient provides the following history. Over the last 1.5 to 2 weeks she has been experiencing dyspnea on lesser and lesser exertion as well as a wet but nonproductive cough, occasional posttussive emesis, and low- grade fever. She has been taking Advil and is using her inhaler at home without much benefit. She went to urgent care due to increasing shortness of breath and she was found to have an SpO2 of 86% on room air for which she was transferred to the ED. She denies sinus congestion, sore throat, pleuritic pain, orthopnea, edema, paroxysmal nocturnal dyspnea, sensations of racing heart, hemoptysis, nausea, and diarrhea. In the ED: SpO2 has been in the mid 90s on 4 L.. She was afebrile on arrival. The remainder of her vital signs have been stable. Labs were significant for WBC count of 13.4, hemoglobin 12.1, sodium 136, potassium 3.0, BUN 12, creatinine 0.60, AST 60, ALT 37, alkaline phosphatase 127. She tested negative for influen za, RSV, and COVID. Chest x-ray showed hazy opacification the lower lung suspicious for pneumonia. She was given a nebulizer treatment and has been started on antibiotics and she is being admitted in this setting for further treatment. ----- Early in her hospital course she decompensated, she was placed on noninvasive ventilator combined with Airvo 90%. Her breathing was extremely labored. She was on the cusp of end of life. She did not want intubation. NIV improved her symptoms. A CTA chest was performed on 03/24/2024 which revealed severe bilateral pneumonia and prominent emphysema. Left upper lobe post radiation scarring. She received antibiotics, schedule nebulizers, Cornet therapy, guaifenesin. She has not provided a sputum sample. Pulmonology consulted, she was started on hydrocortisone 50 mg IV push q.6 hours started. Since then, she has slowly but surely improved. She is now on 7 L of high-flow nasal cannula on 03/31/24. She feels 75% back to her baseline while resting. She still has an active dry cough but it is improved. Night sweats have resolved. Afebrile. She still has exertional dyspnea. She is on day 7 of cefepime, status post azithromycin, day 5 of Levaquin. We have begun to wean down hydrocortisone now to b.i.d. dosing. Quad viral screen negative. Complete respiratory pathogen panel sent out negative. Blood cultures o
[2024-04-02] VITALS (16 sets, daily range): BP systolic 143–150; BP diastolic 72–82; PULSE 61–87; RESP 16–20; TEMP 35.9–36.5; O2SAT 92–100
[2024-04-02] MEDS: IPRATROPIUM 0.5 MG/ALBUTEROL SULFATE 2.5 MG AMPUL.NEB 3 ML INHALATION ×4 (02:14→20:18)
[2024-04-02 03:54] LABS: Legionella pneumophila Ag Ur NOT DETECTED
[2024-04-02] MEDS: LEVOTHYROXINE SODIUM 150 MCG TABLET 300 MCG PO (05:31)
[2024-04-02 07:29] LABS: Glucose Point of Care 123 mg/dl (65-105)
[2024-04-02] MEDS: ENOXAPARIN 40 MG/0.4 ML SYRINGE SUB-Q (09:16)
[2024-04-02] MEDS: levoFLOXacin 750 MG TABLET PO (09:16)
[2024-04-02] MEDS: CHOLECALCIFEROL 1,000 UNITS TABLET 2000 UNITS PO (09:16)
[2024-04-02] MEDS: HYDROCORTISONE SODIUM SUCCINATE 100 MG/2 ML VIAL 50 MG IV PUSH (09:16)
[2024-04-02] MEDS: SERTRALINE HCL 50 MG TABLET 150 MG PO (09:16)
[2024-04-02] MEDS: busPIRone HCL 10 MG TABLET PO (09:16)
[2024-04-02] MEDS: CEFDINIR 300 MG CAPSULE PO ×2 (09:17→20:21)
[2024-04-02] MEDS: guaiFENesin 12 HR 600 MG TABCR PO ×2 (09:17→20:21)
[2024-04-02] MEDS: THERAPEUTIC MULTIVITAMINS/MINERALS TAB (*BKC) 1 TABLET PO (09:17)
[2024-04-02 11:34] LABS: Glucose Point of Care 152 mg/dl (65-105)
[2024-04-02] MEDS: LORazepam (*CRX) 0.5 MG TABLET PO ×2 (11:42→20:21)
[2024-04-02 12:03] LABS: Hematocrit 32.4 % (37.0-47.0); Hemoglobin 10.8 g/dL (12.0-15.0); Mean Corpuscular HGB Conc 33.3 g/dl (32-36); Mean Corpuscular Hemoglobin 34.4 pg (26-34); Mean Corpuscular Volume 103.2 fl (80-100); Mean Platelet Volume 10.1 fl (7.4-10.4); Platelet Count Result 422 k/mm3 (150-375); Red Blood Count 3.14 M/mm3 (4.2-5.4); Red Cell Distribution Width 12.4 % (11.5-14.5); White Blood Count 15.4 K/mm3 (4.5-10.0)
--- NOTE | 2024-04-02 12:09 | PCPTNOTE ---
On 04/02/24, the student, [Gayatri Paredes], provided care and completed [facility] documentation on this patient. I have reviewed the student's documentation and agree with the findings.
[2024-04-02 12:15] LABS: Alanine Aminotransferase 110 U/L (6-35); Albumin Level 3.1 g/dL (3.5-5.1); Alkaline Phosphatase 100 U/L (38-126); Anion Gap 7 mmol/L (4-12); Aspartate Amino Transferase 100 U/L (14-36); Bilirubin,Total 0.3 mg/dL (0.2-1.3); Blood Urea Nitrogen 14 mg/dL (7-17); Calcium 9.2 mg/dL (8.4-10.2); Carbon Dioxide 29 mmol/L (22-30); Chloride 102 mmol/L (98-107); Estimated CRCL calculation 80 ml/min; Estimated Glomerular Filt Rate > 60; Glucose 122 mg/dL (65-110); Potassium 2.8 mmol/L (3.4-5.0); Sodium 138 mmol/L (137-145)
[2024-04-02] MEDS: POTASSIUM CHLORIDE 20 MEQ ER TABLET 40 MEQ PO ×2 (13:11→20:23)
[2024-04-02 16:25] LABS: Glucose Point of Care 175 mg/dl (65-105)
[2024-04-02 17:21] LABS: Potassium 3.1 mmol/L (3.4-5.0)
[2024-04-02 21:11] LABS: Glucose Point of Care 188 mg/dl (65-105)
[2024-04-03] VITALS (18 sets, daily range): BP systolic 132–141; BP diastolic 73–90; PULSE 67–111; RESP 16–20; TEMP 36.3–37; O2SAT 90–94
[2024-04-03] MEDS: IPRATROPIUM 0.5 MG/ALBUTEROL SULFATE 2.5 MG AMPUL.NEB 3 ML INHALATION ×4 (02:05→20:10)
[2024-04-03] MEDS: LEVOTHYROXINE SODIUM 150 MCG TABLET 300 MCG PO (05:55)
[2024-04-03 07:43] LABS: Glucose Point of Care 103 mg/dl (65-105)
[2024-04-03] MEDS: guaiFENesin 12 HR 600 MG TABCR PO ×2 (09:40→20:19)
[2024-04-03] MEDS: SERTRALINE HCL 50 MG TABLET 150 MG PO (09:40)
[2024-04-03] MEDS: FERROUS SULFATE 325 MG TABLET DR PO (09:41)
[2024-04-03] MEDS: THERAPEUTIC MULTIVITAMINS/MINERALS TAB (*BKC) 1 TABLET PO (09:41)
[2024-04-03] MEDS: levoFLOXacin 750 MG TABLET PO (09:41)
[2024-04-03] MEDS: CHOLECALCIFEROL 1,000 UNITS TABLET 2000 UNITS PO (09:41)
[2024-04-03] MEDS: CEFDINIR 300 MG CAPSULE PO ×2 (09:41→20:19)
[2024-04-03] MEDS: busPIRone HCL 10 MG TABLET PO (09:41)
[2024-04-03] MEDS: ENOXAPARIN 40 MG/0.4 ML SYRINGE SUB-Q (09:41)
[2024-04-03] MEDS: HYDROCORTISONE SODIUM SUCCINATE 100 MG/2 ML VIAL 50 MG IV PUSH (09:42)
[2024-04-03 10:15] LABS: Hematocrit 34.9 % (37.0-47.0); Hemoglobin 11.5 g/dL (12.0-15.0); Mean Corpuscular Hemoglobin 34.1 pg (26-34); Mean Corpuscular Volume 103.6 fl (80-100); Platelet Count Result 466 k/mm3 (150-375); Red Blood Count 3.37 M/mm3 (4.2-5.4); Red Cell Distribution Width 12.4 % (11.5-14.5); White Blood Count 12.7 K/mm3 (4.5-10.0)
--- NOTE | 2024-04-03 10:25 | PCNFU ---
Nutrition Follow-Up Complete: Potential for suboptimal intake related to acute illness, loss of appetite as evidenced by intakes 50-100% Goal: Adequate PO intake at least 75% meals and supplements - Goal is being met. Continue with same goal Pt current nutrition is Diabetic consistent carb diet. Glucerna BID for additional 220 kcal and 10 g protein each Nutrition recommendation: No new nutrition recommendations. Continue with same nutrition care plan and diet orders. Agree with orders. Last recorded weight is 56.3 kg. Bowel Motility: +2 BMs 04/02/24 Labs Reviewed: Hgb 11.5, Hct 34.9. Remaining labs 04/03 are pending. Labs 04/02/24: Alb 3.1, K+ 3.1, Cre 0/6, Glu 122 Meds Noted: Lovenox, insulin, Vit D Skin: No skin issues Additional Notes: Intakes improved to 100%. Continue with current orders. Monitoring intake, weights, labs, supplement tolerance, plan of care Follow up in 5 days
[2024-04-03 10:32] LABS: Alanine Aminotransferase 124 U/L (6-35); Albumin Level 3.1 g/dL (3.5-5.1); Alkaline Phosphatase 93 U/L (38-126); Anion Gap 8 mmol/L (4-12); Aspartate Amino Transferase 158 U/L (14-36); Bilirubin,Total 0.3 mg/dL (0.2-1.3); Blood Urea Nitrogen 12 mg/dL (7-17); Calcium 8.8 mg/dL (8.4-10.2); Carbon Dioxide 28 mmol/L (22-30); Chloride 102 mmol/L (98-107); Estimated CRCL calculation 94 ml/min; Estimated Glomerular Filt Rate > 60; Glucose 215 mg/dL (65-110); Potassium 3.1 mmol/L (3.4-5.0); Sodium 138 mmol/L (137-145)
[2024-04-03 11:23] LABS: Glucose Point of Care 188 mg/dl (65-105)
[2024-04-03 12:18] LABS: Magnesium 1.4 mg/dL (1.6-2.3); Phosphorus 3.1 mg/dL (2.5-4.5)
[2024-04-03] MEDS: POTASSIUM CHLORIDE 20 MEQ ER TABLET 40 MEQ PO (14:40)
[2024-04-03] MEDS: MAGNESIUM SULF 2 GM/WATER 50ML 2 GM/50 ML BAG IVPB (14:40)
[2024-04-03 16:42] LABS: Glucose Point of Care 142 mg/dl (65-105)
[2024-04-03 20:10] LABS: Glucose Point of Care 142 mg/dl (65-105)
[2024-04-03] MEDS: LORazepam (*CRX) 0.5 MG TABLET PO (22:19)
[2024-04-04] VITALS (15 sets, daily range): BP systolic 141; BP diastolic 69–91; PULSE 59–94; RESP 16–18; TEMP 36–36.3; O2SAT 87–94
[2024-04-04] MEDS: LEVOTHYROXINE SODIUM 150 MCG TABLET 300 MCG PO (06:27)
[2024-04-04 07:35] LABS: Glucose Point of Care 89 mg/dl (65-105)
[2024-04-04] MEDS: IPRATROPIUM 0.5 MG/ALBUTEROL SULFATE 2.5 MG AMPUL.NEB 3 ML INHALATION ×2 (07:55→13:49)
[2024-04-04] MEDS: SERTRALINE HCL 50 MG TABLET 150 MG PO (10:23)
[2024-04-04] MEDS: busPIRone HCL 10 MG TABLET PO (10:23)
[2024-04-04] MEDS: predniSONE 20 MG TABLET 40 MG PO (10:23)
[2024-04-04] MEDS: levoFLOXacin 750 MG TABLET PO (10:23)
[2024-04-04] MEDS: ENOXAPARIN 40 MG/0.4 ML SYRINGE SUB-Q (10:24)
[2024-04-04] MEDS: THERAPEUTIC MULTIVITAMINS/MINERALS TAB (*BKC) 1 TABLET PO (10:24)
[2024-04-04] MEDS: CEFDINIR 300 MG CAPSULE PO (10:24)
[2024-04-04] MEDS: guaiFENesin 12 HR 600 MG TABCR PO (10:24)
[2024-04-04] MEDS: CHOLECALCIFEROL 1,000 UNITS TABLET 2000 UNITS PO (10:24)
[2024-04-04 10:39] LABS: Hematocrit 35.9 % (37.0-47.0); Hemoglobin 11.6 g/dL (12.0-15.0); Mean Corpuscular HGB Conc 32.3 g/dl (32-36); Mean Corpuscular Hemoglobin 33.4 pg (26-34); Mean Corpuscular Volume 103.5 fl (80-100); Mean Platelet Volume 9.8 fl (7.4-10.4); Platelet Count Result 487 k/mm3 (150-375); Red Blood Count 3.47 M/mm3 (4.2-5.4); Red Cell Distribution Width 12.6 % (11.5-14.5)
[2024-04-04 11:01] LABS: Alanine Aminotransferase 134 U/L (6-35); Albumin Level 3.4 g/dL (3.5-5.1); Alkaline Phosphatase 102 U/L (38-126); Anion Gap 9 mmol/L (4-12); Aspartate Amino Transferase 129 U/L (14-36); Bilirubin,Total 0.3 mg/dL (0.2-1.3); Blood Urea Nitrogen 10 mg/dL (7-17); Calcium 9.4 mg/dL (8.4-10.2); Carbon Dioxide 26 mmol/L (22-30); Chloride 102 mmol/L (98-107); Estimated CRCL calculation 70 ml/min; Estimated Glomerular Filt Rate > 60; Glucose 208 mg/dL (65-110); Potassium 3.4 mmol/L (3.4-5.0); Sodium 137 mmol/L (137-145)
[2024-04-04 11:38] LABS: Glucose Point of Care 170 mg/dl (65-105)
--- NOTE | 2024-04-04 11:50 | HOMEO2EVAL ---
Evaluation was performed at [facility] Home Oxygen Evaluation RC: Home Oxygen (O2) Evaluation Start: 04/03/24 19:16 Freq: ONCE Status: Active Protocol: RPE Activity Type Activity Date Activity User E-sign Co-sign Detail Recorded Client Recorded Date Recorded By Document 04/04/24 11:25 [email or web address] 04/04/24 11:50 JESUSITA Document 04/04/24 11:30 [email or web address] 04/04/24 11:50 JESUSITA Document 04/04/24 11:31 [email or web address] 04/04/24 11:50 JESUSITA Document 04/04/24 11:32 [email or web address] 04/04/24 11:50 JESUSITA Document 04/04/24 11:45 [email or web address] 04/04/24 11:50 JESUSITA 04/04/24 04/04/24 04/04/24 11:25 11:30 11:31 Home O2 Evaluation [Oxygen] -Test Phase Resting Exercise Exercise -Oxygen Delivery Room Air Room Air Nasal Cannula -Oxygen Flow Rate (L/min) 1 [Pulse Oximetry] -Pulse Oximetry (90-100 %) 94 87 L 88 L [Pulse Rate] -Pulse Rate (60-100 beats/min) 74 90 [Comments] -Home Oxygen Evaluation Comments [Charges] -Evaluation Charges O2 Evaluation by Pulmonary 04/04/24 04/04/24 11:32 11:45 Home O2 Evaluation [Oxygen] -Test Phase Exercise Resting -Oxygen Delivery Nasal Cannula Room Air -Oxygen Flow Rate (L/min) 2 [Pulse Oximetry] -Pulse Oximetry (90-100 %) 92 93 [Pulse Rate] -Pulse Rate (60-100 beats/min) 94 79 [Comments] -Home Oxygen Evaluation Comments Pt requires 2 liters with activity [Charges] -Evaluation Charges
--- NOTE | 2024-04-04 14:14 | PM.DS ---
DS: Admitting Diagnosis Discharge Date 04/04/2024 Admitting Diagnosis Acute respiratory failure with hypoxia DS: Discharge Diagnosis Discharge Diagnosis (1) Lung cancer: Code(s): C34.90 - Malignant neoplasm of unspecified part of unspecified bronchus or lung Status: Acute (2) COPD (chronic obstructive pulmonary disease): Code(s): J44.9 - Chronic obstructive pulmonary disease, unspecified Status: Acute (3) Anxiety: Code(s): F41.9 - Anxiety disorder, unspecified Status: Acute (4) Elevated LFTs: Code(s): R79.89 - Other specified abnormal findings of blood chemistry Status: Acute (5) Emphysema lung: Code(s): J43.9 - Emphysema, unspecified Status: Acute (6) Hypertension: Code(s): I10 - Essential (primary) hypertension Status: Acute (7) Acute respiratory failure with hypoxia: Code(s): J96.01 - Acute respiratory failure with hypoxia Status: Acute (8) Pneumonia: Qualifiers: Laterality: bilateral Lung location: lower lobe of lung Pneumonia type: due to unspecified organism Qualified Code(s): J18.9 - Pneumonia, unspecified organism Code(s): J18.9 - Pneumonia, unspecified organism Status: Acute (9) Hypoxia: Code(s): R09.02 - Hypoxemia Status: Acute (10) Type 2 diabetes mellitus without complications: Code(s): E11.9 - Type 2 diabetes mellitus without complications Status: Acute (11) Acquired hypothyroidism: Code(s): E03.9 - Hypothyroidism, unspecified Status: Acute Plan H&P via Radha Mckeon PA-C on 03/23/2024 This is a very pleasant 53-year-old female smoker with history of lung cancer status post chemoradiation and immunotherapy, emphysema, hypertension, hypothyroidism, diet-controlled diabetes, and anxiety who presented to the emergency department via EMS from urgent care for evaluation of shortness of breath and cough. The patient provides the following history. Over the last 1.5 to 2 weeks she has been experiencing dyspnea on lesser and lesser exertion as well as a wet but nonproductive cough, occasional posttussive emesis, and low-grade fever. She has been taking Advil and is using her inhaler at home without much benefit. She went to urgent care due to increasing shortness of breath and she was found to have an SpO2 of 86% on room air for which she was transferred to the ED. She denies sinus congestion, sore throat, pleuritic pain, orthopnea, edema, paroxysmal nocturnal dyspnea, sensations of racing heart, hemoptysis, nausea, and diarrhea. In the ED: SpO2 has been in the mid 90s on 4 L.. She was afebrile on arrival. The remainder of her vital signs have been stable. Labs were significant for WBC count of 13.4, hemoglobin 12.1, sodium 136, potassium 3.0, BUN 12, creatinine 0.60, AST 60, ALT 37, alkaline phosphatase 127. She tested negative for influenza, RSV, and COVID. Chest x-ray showed hazy opacification the lower lung suspicious for pneumonia. She was given a nebulizer treatment and has been started on antibiotics and she is being admitted in this setting for further treatment. ----- Early in her hospital course she decompensated, she was placed on noninvasive ventilator combined with Airvo 90%. Her breathing was extremely labored. She was on the cusp of end of life. She did not want intubation. NIV improved her symptoms. A CTA chest was performed on 03/24/2024 which revealed severe bilateral pneumonia and prominent emphysema. Left upper lobe post radiation scarring. She received antibiotics, schedule nebulizers, Cornet therapy, guaifenesin. She has not provided a sputum sample. Pulmonology consulted, she was started on hydrocortisone 50 mg IV push q.6 hours started. Since then, she has slowly but surely improved. She is now on 7 L of high-flow nasal cannula on 03/31/24. She feels 75% back to her baseline while resting. She still has an active dry cough but it is improved.
== END 2024-04-04 15:00 | disposition home or self-care (01) | DRG 193 ==
LOC: ANHED 16:35 → ANH3MEDSUR 17:30 → ANHIMU 03-24 15:33 → ANH3MEDSUR 04-01 16:56
PROVIDERS: General Practice; Internal Medicine Pulmonary Disease; Physician Assistant; Admitting Provider Hospitalist; Emergency Provider Nurse Practitioner Family; PCP Family Medicine; Visit Provider General Practice
DX: J18.9 Pneumonia, unspecified organism (principal); J96.01 Acute respiratory failure with hypoxia; J44.0 Chronic obstructive pulmonary disease with (acute) lower respiratory infection; C34.90 Malignant neoplasm of unspecified part of unspecified bronchus or lung; E87.6 Hypokalemia; R79.89 Other specified abnormal findings of blood chemistry; I10 Essential (primary) hypertension; E03.9 Hypothyroidism, unspecified; M48.00 Spinal stenosis, site unspecified; F41.1 Generalized anxiety disorder; E78.5 Hyperlipidemia, unspecified; E11.9 Type 2 diabetes mellitus without complications; Z87.891 Personal history of nicotine dependence; Z66 Do not resuscitate; Z20.822 Contact with and (suspected) exposure to COVID-19
CPT/HCPCS: 36415; 36600; 71045; 71046; 71250; 71275; 80048; 80053; 80074; 82375; 82805; 82948; 83036; 83050; 83605; 83735; 83880; 84100; 84132; 84145; 84439; 84443; 84480; 85025; 85027; 86738; 87040; 87449; 87633; 87637; 87641; 87899; 93005; 93306; 94002; 94003; 94618; 94640; 94667; 94668; 94762; 96365; 96367; 96375; 97110; 97116; 97161; 99285; A9270; J0456; J0692; J0696; J1642; J1650; J1720; J1815; J1940; J1956; J3370; J3475; J3480; J7030; J7512; Q9967

== ENCOUNTER 2024-04-26 14:29 | Outpatient (CLI) | payer OTHER, SELFPAY ==
--- NOTE | ~2024-04-26 | MM_ITS ---
EXAMINATION: MM screening krissy BI w shayy HISTORY: Screening TECHNIQUE: Craniocaudal and mediolateral oblique 3-D tomosynthesis images were obtained and synthetic 2-D images were generated. CAD analysis was submitted and interpreted. COMPARISON: 08/08/2027 2 BREAST PARENCHYMAL COMPOSITION: Dense: The breasts are heterogeneously dense, which may obscure small masses FINDINGS: There is no evidence of suspicious mass, calcification, or architectural distortion to sugg est malignancy in either breast. There has been no suspicious interval change. IMPRESSION: 1. No mammographic evidence of malignancy. 2. Recommend routine screening mammography in one year. BI-RADS Category 1: Negative Reviewed, dictated and finalized at location B.
== END 2024-04-26 14:30 | disposition home or self-care (01) ==
LOC: ANHIMG 14:32
PROVIDERS: PCP Family Medicine; Visit Provider Physician Assistant
DX: Z12.31 Encounter for screening mammogram for malignant neoplasm of breast (principal)
CPT/HCPCS: 77063; 77067

== ENCOUNTER 2024-06-18 08:13 | Outpatient (CLI) | payer OTHER, SELFPAY ==
--- NOTE | 2024-06-18 12:18 | WPDSIXMINUTE ---
Six Minute Walk Procedure Procedure Performed Pulmonary Stress Test (6 min walk) Six Minute Walk Six Minute Walk: This is a 6 minute walk test. The test was performed and interpreted in accordance with the 2014 ERS/ATS task force guidelines. Of note, with activity patient used her personal portable oxygen concentrator with her prescribed 2 L nasal cannula with activity. Findings: The patient's resting room air saturation measured by pulse oximetry was 95%, the heart rate was 76 bpm, and the modified Alberto dyspnea score was 0. Patient ambulated with 2 L nasal cannula for 335 meters and oxygen saturation remained 93 to 97%. At the end of the study the heart rate was 100 bpm and the modified Alberto dyspnea score was 2. The patient did not qualify for supplemental oxygen at rest and there was no hypoxemia with 2 L with portable oxygen concentrator with ambulation. There are no prior studies for comparison.
--- NOTE | 2024-06-18 12:20 | WPDPFTINT ---
PFT Procedure Performed PFT Procedure Performed Spirometry with Pre/Post Bronchodilator Plethysmography (Lung Vol) Diffusing Cap (DLCO) Flow Vol Loop PFT Interpretation This is a pulmonary function test with pre and post-bronchodilator spirometry, plethysmography and diffusing capacity. The test was performed and results interpreted in accordance with the 2019 and 2005 ATS/ERS Task Force guidelines respectively using the Global Lung Function Initiative-2012 reference equations. Patient demonstrated good effort and cooperation. Reproducibility criteria were met. The quality of the pre bronchodilator spirometry maneuver was Grade A and post bronchodilator spirometry maneuver was Grade E. patient could only complete 1 post bronchodilator flow volume loop as she was too lightheaded to continue. Findings: Spirometry: There is decreased maximal expiratory airflow at all lung volumes with concave expiratory flow tracing. The contour the inspiratory flow tracing is normal. The pre bronchodilator FVC is 4.05 L, 107% predicted. The pre bronchodilator FEV1 is 2.15 L, 72% predicted. The pre bronchodilator FEV1: FVC ratio is 53%. The post bronchodilator FVC is 4.07 L, representing no change. The post bronchodilator FEV1 is 2.34 L, representing a 9% increase. The post bronchodilator FEV1: FVC ratio is 58%. Plethysmography: The total lung capacity is 6.81 L, 120% predicted. The functional residual capacity is 4.27 L, 133% predicted. The residual volume is 2.74 L, 130% predicted. The residual volume: Total lung capacity ratio is 40%. Diffusing capacity: The diffusing capacity unadjusted for hemoglobin and carboxyhemoglobin is 10.4, 44% predicted. The diffusing capacity adjusted for alveolar volume is 2.12, 49% predicted. Impression: There is a mild obstructive abnormality. Patient was only able to complete 1 post bronchodilator maneuver and using this data, there is no significant improvement after inhaling a single dose of albuterol. the total lung capacity is increased with a normal functional residual capacity, residual volume and residual volume: Total lung capacity ratio. This is an abnormal but nonspecific lung volume pattern. The diffusing capacity unadjusted for hemoglobin and carboxyhemoglobin is moderately decreased and remains moderately decreased when adjusted for alveolar volume. There are no prior studies for comparison
== END 2024-06-18 08:14 | disposition home or self-care (01) ==
LOC: ANHPFT 08:14
PROVIDERS: PCP Family Medicine; Visit Provider Internal Medicine Critical Care Medicine
DX: J44.9 Chronic obstructive pulmonary disease, unspecified (principal); R09.02 Hypoxemia
CPT/HCPCS: 94060; 94726; 94729

== ENCOUNTER 2024-08-29 17:34 | Emergency (ER) | payer OTHER, SELFPAY ==
[2024-08-29 17:47] VITALS: BP 108/66; PULSE 92; RESP 18; TEMP 36.9; O2SAT 99
--- NOTE | 2024-08-29 18:19 | ED.URI ---
HPI - URI/Sore Throat General Chief Complaint: Upper Respiratory Infection Stated Complaint: flu like symptoms Source: patient Mode of arrival: ambulatory Limitations: no limitations History of Present Illness HPI Narrative: 54-year-old female with a history of lung cancer (post treatment) diabetes and hypertension presented for complaint of cough and nasal congestion for 4 days. Cough is productive of yellow sputum, reports fatigue and body aches. Wears O2 with activity and at night. Denies n/v/d. Related Data Home Medications ?Medication ?Instructions ?Recorded ?Confirmed ?Last Taken ?Type cholecalciferol (vitamin D3) 50 2,000 unit PO DAILY 09/23/19 07/16/24 Unknown History mcg (2,000 unit) capsule (Vitamin D3) multivit-iron 18 mg-folic acid 400 1 tablet PO DAILY 09/23/19 07/16/24 12/11/23 History mcg-calcium 500 mg-minerals tablet (One-A-Day Womens Formula) buspirone 10 mg tablet 10 mg PO DAILY 12/01/23 07/16/24 Unknown History gabapentin 300 mg capsule 300 mg PO BID 05/13/24 07/16/24 Unknown History Allergies Allergy/AdvReac Type Severity Reaction Status Date / Time morphine Allergy Unknown Hives Verified 08/29/24 18:11 Review of Systems Review of Systems: per HPI. 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 Currently on immunotherapy. Seborrheic keratosis Spinal stenosis Tobacco use Type 2 diabetes mellitus without complications Surgical History Surgical History History of cystoscopy History of lithotripsy Family History Family History Father Carcinoma of colon Family history of Alzheimer's disease Family history of malignant neoplasm of urinary bladder Diabetes mellitus Grandparent Carcinoma of colon Family history of malignant neoplasm of brain Diabetes mellitus Mother Family history of malignant neoplasm of ovary Social History Social History (Reviewed 08/29/24 @ 18:28 by AMADEO Kinney Social History: Surrogate medical decision maker: Terry Damon, spouse. Code status: Full code. Smoking packs per day: 1 Smoking cigarettes per day: 20.0 Years smoked: 35 Smoking pack-years: 35.00 Smoking status: Former smoker Tobacco type: cigarettes Second hand tobacco smoke exposure: Yes Smoking end date: 03/17/24 Alcohol intake: current Drinks per week: 10 Alcohol use details: occasional Substance use: never Substance use type: does not use Do You Feel Safe in your Home?: Yes Lack of Transportation: No Lack of Food: Never True Current Housing: I Have Housing Concerned About Future Housing: No Difficulty Paying Gas/Electric Bills: No Difficulty Paying for Meds: No Currently Unemployed: No Education: High School Diploma/GED Difficulty w/ Childcare or Family Care: No Living arrangements: with family Additional living arrangements comments: Resides in [place] with her . 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 Spiritual care concerns: No Comments At time of signature, I have reviewed and agree with nursing past medical, surgical, social and family history unless otherwise noted. Please see nursing chart for further information. There is no relevant family history pertinent to the presenting complaint Exam Narrative: GENERAL: Well-appearing, in no acute distress. EYES: EOMI. No redness or drainage. Conjunctivae normal. ENT: Mucous membranes pink and moist. No rhinorrhea. TMs normal bilaterally. Throat normal. Uvula midline. NECK: Normal AROM. Supple. CHEST: No respiratory distress. Coarse to left base. HEART: Regular rate and rhythm. ABDOMEN: Soft, nontender, nondistended, normal active bowel sounds. SKIN: Warm, dry, no rash. Capillary refill normal. Normal skin turgor. NEURO: Alert and oriented x3. Gait steady. PSYCH: Normal affect. Course Course Emergency Course: Patient is aware of diagnosis, understands and agrees to treatment plan. Anticipatory guidance given. Patient agrees to follow-up as directed and is aware of reasons to seek care at the emergency department. Portions of this record may have been created with voice recognition software Level of Care: Express Care Visit Vital Signs Vital signs: Vital Signs Temperature 98.5 F 08/29/24 17:47 Pulse Rate 92 08/29/24 17:47 Respiratory Rate 18 08/29/24 17:47 Blood Pressure 108/66 08/29/24 17:47 Pulse Oximetry 99 08/29/24 17:47 Oxygen Delivery Nasal Cannula 08/29/24 17:47 Oxygen Flow Rate 3 08/29/24 17:47 Temperature 98.5 F 08/29/24 17:47 Pulse Rate 92 08/29/24 17:47 Respiratory Rate 18 08/29/24 17:47 Blood Pressure 108/66 08/29/24 17:47 Pulse Oximetry 99 08/29/24 17:47 Oxygen Delivery Nasal Cannula 08/29/24 17:47 Oxygen Flow Rate 3 08/29/24 17:47 MDM - URI/Sore Throat MDM Narrative Medical decision making narrative: Discussed physical exam findings; neg flu and covid. Given hx lung CA, will send rx steroid and abx. Advised supportive measures and signs/symptoms to go to the ER. Pt is appropriate for outpt treatment and f/u. Differential Diagnosis Differential diagnosis: Likely upper respiratory infection, sinusitis, viral infection, bronchitis, influenza and pharyngitis Discharge Plan Discharge Clinical Impression: Bronchitis Patient Disposition: Home, Self-Care Condition: Stable Instructions: Antibiotic Form, Acute Bronchitis (ED) Additional Instructions: Acute bronchitis can be contagious because it is usually caused by infection with a virus or bacteria. It is usually for a few days but you can be contagious for up to one week. Avoid crowds until you do not have a fever and symptoms are improved Take medication as directed Recommend Flonase spray and Zyrtec (or Claritin/Matilda) over the counter Cough syrup may cause drowsiness; avoid driving or take it at night time. Tylenol 1000mg every 8 hours as needed for pain Symptomatic treatment includes: rest, fluids, and increase humidity of the air at home. Follow up with your primary care provider as needed in 1 week Go to the ER for worsening symptoms or concerns Patient Language: Afghan Prescriptions: New azithromycin [Zithromax Z-Crow] 250 mg tablet See Rx Instructions .ROUTE .COMPLEX Qty: 6 0RF Rx Instructions: For 250 mg dose pack: take 500 mg today (day 1), then 250 mg for 4 days (days 2-5) prednisone 50 mg tablet 50 mg PO DAILY Qty: 5 0RF No Action albuterol sulfate 90 mcg/actuation HFA aerosol inhaler 2 puff inhalation Q4-6H PRN (Reason: shortness of breath or wheezing) 30 Days Qty: 8.5 0RF cholecalciferol (vitamin D3) [Vitamin D3] 50 mcg (2,000 unit) capsule 2,000 unit PO DAILY One-A-Day Womens Formula 18 mg iron-400 mcg-500 mg Ca tablet 1 tablet PO DAILY Trelegy Ellipta 100-62.5-25 mcg blister with device 1 inh inhalation Q24H 30 Days Qty: 60 5RF Rx Instructions: Rinse after use. fluticasone fur. 100 mcg-umeclid 62.5 mcg-vilant 25 mcg inhalat.powder 100-62.5-25 mcg blister with device 0RF lorazepam 0.5 mg tablet 0.5 mg PO BID PRN (Reason: anxiety) Qty: 60 0RF amlodipine 5 mg tablet 5 mg PO DAILY Qty: 30 0RF gabapentin 300 mg capsule 300 mg PO BID (DME) Aerochamber MV Spacer See Rx Instructions .ROUTE .MEDSUPPLY Qty: 1 0RF Rx Instructions: As directed ferrous sulfate 325 mg (65 mg iron) tablet,delayed release (DR/EC) 325 mg PO .every other day Qty: 30 1RF sertraline 100 mg tablet 150 mg PO DAILY 90 Days Qty: 135 1RF Abrysvo (PF) 120 mcg/0.5 mL recon soln 0.5 ml IM ONCE Qty: 1 0RF Rx Instructions: as a single dose levothyroxine 300 mcg tablet See Rx Instructions .ROUTE .COMPLEX Qty: 90 2RF Dose Instruction: TAKE 1 TABLET BY MOUTH EVERY DAY Rx Instructions: TAKE 1 TABLET BY MOUTH EVERY DAY varenicline 1 mg tablet 1 mg PO BID Qty: 168 1RF buspirone 10 mg tablet 10 mg PO DAILY Follow-up/Referrals: Braden Lewis MD [Primary Care Provider] -
[2024-08-29 18:23] LABS: EDCOVIDSCREEN Negative (Negative); EDINFLUASCREEN Negative (Negative); EDINFLUBSCREEN Negative (Negative)
== END 2024-08-29 18:29 | disposition home or self-care (01) ==
PROVIDERS: Emergency Provider Nurse Practitioner Family; PCP Family Medicine
DX: J40 Bronchitis, not specified as acute or chronic (principal); Z20.822 Contact with and (suspected) exposure to COVID-19; Z87.891 Personal history of nicotine dependence; I10 Essential (primary) hypertension; E78.5 Hyperlipidemia, unspecified; E03.9 Hypothyroidism, unspecified; E11.9 Type 2 diabetes mellitus without complications; M48.00 Spinal stenosis, site unspecified; Z85.118 Personal history of other malignant neoplasm of bronchus and lung; Z92.21 Personal history of antineoplastic chemotherapy; Z92.3 Personal history of irradiation; F41.1 Generalized anxiety disorder
CPT/HCPCS: 87426; 87804; 99213; G0463

== ENCOUNTER 2025-03-07 09:37 | Emergency (ER) | payer OTHER, SELFPAY ==
[2025-03-07 09:59] VITALS: BP 106/65; PULSE 80; RESP 16; TEMP 36.6; O2SAT 96
--- NOTE | 2025-03-07 10:42 | ED.DENTAL ---
HPI - Dental/Oral General Chief complaint: Fever Stated complaint: Fever Time Seen by Provider: 03/07/25 10:33 Source: patient and RN notes reviewed Mode of arrival: ambulatory Limitations: no limitations History of Present Illness HPI Narrative: Patient presents today complaining of upper open to that occurred 7 days ago. The lateral portion of this tooth has rubbed a sore on to the inside of the left cheek. Patient states this has caused her to run a fever over the last 3 days with a T-max of 102.7?. Patient denies any additional symptoms to include dental pain, congestion, rhinorrhea, sore throat, shortness of breath, difficulty swallowing. She has history of diabetes, hypertension. She does not currently have an appointment with her dentist. States she has fear of dentists. Related Data Home Medications ?Medication ?Instructions ?Recorded ?Confirmed ?Last Taken ?Type cholecalciferol (vitamin D3) 50 2,000 unit PO DAILY 09/23/19 12/31/24 Unknown History mcg (2,000 unit) capsule (Vitamin D3) multivit-iron 18 mg-folic acid 400 1 tablet PO DAILY 09/23/19 12/31/24 12/11/23 History mcg-calcium 500 mg-minerals tablet (One-A-Day Womens Formula) buspirone 10 mg tablet 10 mg PO DAILY 12/01/23 12/31/24 Unknown History gabapentin 300 mg capsule 300 mg PO BID 05/13/24 12/31/24 Unknown History Allergies Allergy/AdvReac Type Severity Reaction Status Date / Time morphine Allergy Unknown Hives Verified 03/07/25 09:58 [facility] Past Medical History Medical History History of tobacco abuse Hypertension Anxiety Emphysema lung Humerus fracture Hyperlipidemia Generalized anxiety disorder Hypothyroidism 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 Currently on immunotherapy. Seborrheic keratosis Spinal stenosis Tobacco use Type 2 diabetes mellitus without complications Surgical History Surgical History History of cystoscopy History of lithotripsy Family History Family History Father Carcinoma of colon Family history of Alzheimer's disease Family history of malignant neoplasm of urinary bladder Diabetes mellitus Grandparent Carcinoma of colon Family history of malignant neoplasm of brain Diabetes mellitus Mother Family history of malignant neoplasm of ovary Social History Social History Social History: Surrogate medical decision maker: Terry Damon, spouse. Code status: Full code. Smoking packs per day: 1 Smoking cigarettes per day: 20.0 Years smoked: 35 Smoking pack-years: 35.00 Smoking status: Former smoker Tobacco type: cigarettes Second hand tobacco smoke exposure: Yes Smoking end date: 03/17/24 Alcohol intake: current Drinks per week: 10 Alcohol use details: occasional Substance use: never Substance use type: does not use Do You Feel Safe in your Home?: Yes Lack of Transportation: No Lack of Food: Never True Current Housing: I Have Housing Concerned About Future Housing: No Difficulty Paying Gas/Electric Bills: No Difficulty Paying for Meds: No Currently Unemployed: No Education: High School Diploma/GED Difficulty w/ Childcare or Family Care: No Living arrangements: with family Additional living arrangements comments: Resides in [place] with her . 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 Spiritual care concerns: No Comments At time of signature, I have reviewed and agree with nursing past medical, surgical, social and family history unless otherwise noted. Please see nursing chart for further information. There is no relevant family history pertinent to the presenting complaint Exam Narrative: GENERAL: Well-appearing, well-nourished, and in no acute distress. HEAD: Normocephalic, atraumatic. EYES: EOMI. No redness or drainage. Conjunctivae normal. ENT: Mucous membranes pink and moist. Throat normal. Uvula midline. No facial swelling noted. Patient has poor dentition and multiple missing teeth. The top surface of tooth 18 is present, but the lateral surface is absent. Adjacent to this there is an approximately dime sized white lesion rubbed into the inner cheek. NECK: Normal AROM. CHEST: No respiratory distress. EXTREMITIES: Normal range of motion. No edema. SKIN: Warm, dry, no rash. Capillary refill normal. Normal skin turgor. NEURO: No focal deficits. Alert and oriented x3. Gait steady. PSYCH: Normal affect. No signs of depression or anxiety. Course Course Level of Care: Express Care Visit Vital Signs Vital signs: Vital Signs Temperature 97.9 F 03/07/25 09:59 Pulse Rate 80 03/07/25 09:59 Respiratory Rate 16 03/07/25 09:59 Blood Pressure 106/65 03/07/25 09:59 Pulse Oximetry 96 03/07/25 09:59 Temperature 97.9 F 03/07/25 09:59 Pulse Rate 80 03/07/25 09:59 Respiratory Rate 16 03/07/25 09:59 Blood Pressure 106/65 03/07/25 09:59 Pulse Oximetry 96 03/07/25 09:59 Reviewed MDM - Dental/Oral MDM Narrative Medical decision making narrative: 54-year-old female patient with history of diabetes and hypertension presents with a wound to the left inner cheek, rubbed by a sharp edge of a tooth that has been broken, along with a fever up to 102.7. Patient has not run a fever since last night. Denies shortness of breath, difficulty swallowing. Patient will be started on a course of Augmentin for presumed infection. Patient has been urged to make an appointment with a dentist as soon as possible for further evaluation. Vital signs stable. Differential Diagnosis Differential diagnosis: Likely gingival abscess, dental caries, toothache, dental abscess and fracture of tooth Critical Care Time Critical Care Time Critical Care Time: No Discharge Plan Discharge Clinical Impression: Lesion of oral mucosa Broken tooth Qualifiers: Encounter type: initial encounter Fracture type: closed Qualified Code(s): S02.5XXA - Fracture of tooth (traumatic), initial encounter for closed fracture Patient Disposition: Home Condition: Stable Instructions: Antibiotic Form Additional Instructions: Please take the Augmentin as prescribed until gone. Please make an appointment as soon as possible to follow-up with a dentist. Please go to the ER immediately if symptoms worsen to include shortness of breath, difficulty swallowing, facial or neck swelling or redness, return of your fever. Patient Language: Croatian Prescriptions: New amoxicillin-pot clavulanate 875-125 mg tablet 1 tablet PO Q12H 10 Days Qty: 20 0RF No Action albuterol sulfate 90 mcg/actuation HFA aerosol inhaler 2 puff inhalation Q4-6H PRN (Reason: shortness of breath or wheezing) 30 Days Qty: 8.5 0RF cholecalciferol (vitamin D3) [Vitamin D3] 50 mcg (2,000 unit) capsule 2,000 unit PO DAILY One-A-Day Womens Formula 18 mg iron-400 mcg-500 mg Ca tablet 1 tablet PO DAILY Trelegy Ellipta 100-62.5-25 mcg blister with device 1 inh inhalation Q24H 90 Days Qty: 180 3RF Rx Instructions: Rinse after use. fluticasone fur. 100 mcg-umeclid 62.5 mcg-vilant 25 mcg inhalat.powder 100-62.5-25 mcg blister with device 0RF albuterol sulfate 90 mcg/actuation HFA aerosol inhaler 1 puff inhalation Q4H PRN (Reason: shortness of breath or wheezing) 30 Days Qty: 8.5 5RF lorazepam 0.5 mg tablet 0.5 mg PO BID PRN (Reason: anxiety) Qty: 60 0RF gabapentin 300 mg capsule 300 mg PO BID (DME) Aerochamber MV Spacer See Rx Instructions .ROUTE .MEDSUPPLY Qty: 1 0RF Rx Instructions: As directed varenicline tartrate 1 mg tablet 1 mg PO BID Qty: 168 1RF sertraline 100 mg tablet 150 mg PO DAILY 90 Days Qty: 135 1RF amlodipine 5 mg tablet See Rx Instructions .ROUTE .COMPLEX Qty: 90 2RF Dose Instruction: TAKE 1 TABLET BY MOUTH EVERY DAY Rx Instructions: TAKE 1 TABLET BY MOUTH EVERY DAY levothyroxine 200 mcg tablet 200 mcg PO DAILY Qty: 90 0RF buspirone 10 mg tablet 10 mg PO DAILY Follow-up/Referrals: Braden Lewis MD [Primary Care Provider] - Time of Disposition: 10:50
== END 2025-03-07 10:57 | disposition home or self-care (01) ==
PROVIDERS: Emergency Provider Nurse Practitioner; PCP Family Medicine
DX: S02.5XXA Fracture of tooth (traumatic), initial encounter for closed fracture (principal); K13.70 Unspecified lesions of oral mucosa; I10 Essential (primary) hypertension; E11.9 Type 2 diabetes mellitus without complications; E78.5 Hyperlipidemia, unspecified; E03.9 Hypothyroidism, unspecified; Z87.891 Personal history of nicotine dependence; X58.XXXA Exposure to other specified factors, initial encounter
CPT/HCPCS: 99213; G0463

== ENCOUNTER 2025-05-17 09:48 | Outpatient (CLI) | payer OTHER, SELFPAY ==
--- NOTE | ~2025-05-17 | XR_ITS ---
X-rays right shoulder Indication: Pain, M 25.511 Comparison: MRI right shoulder 08/31/2023 Technique: 4 views right shoulder Findings/Impression: 1. No fracture or dislocation right shoulder. 2. No degenerative changes glenohumeral. 3. Moderate degenerative changes AC joint. 4. Right chest Mediport. Reviewed, dictated and finalized at location R.
--- OUTSIDE RECORDS SUMMARY | 2025-05-17 09:55 | XMS_ITS | Encounter Summary ---
Author Organization [facility] Healthcare Address [address] [place] [address] Care Team Providers Care Solar Panel Technician Name Role Phone Braden Lewis MD Primary Care Provider Braden Gonzalez MD Unavailable [phone] Phi Schwartz MD PhD Unavailable Encounter Details Date Type Department Care Team (Late st Contact Info) Description 01/26/2022 Telephone [facility] Radiology [address] [place] [address] Lelo Clark, JEAN-CLAUDE Social History Tobacco Use Types Packs/Day Years Used Date Smoking Tobacco: Light Smoker Cigarettes 1 30 Started: 997; Last attempted to quit: 12/23/2021 Smokeless Tobacco: Never Comments:pt in process of qu itting-- Started Chantix 12/20/2021 Alcohol Use Standard Drinks/Week Comments Yes 0 (1 standard drink = 0.6 oz pur e alcohol) Social AUDIT-C Answer Date Recorded Q1: How often do you have a drink containing alc ohol? 2-3 times a week 01/25/2022 Q2: How many drinks containi ng alcohol do you have on a typical day when you are drinking? 3 or 4 01/25/2022 Q3: How often do you have si x or more drinks on one occasion? 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 Not on file Not on file documented as of this encounter Plan of Treatment Not on file documented as of this encounter Visit Diagnoses Not on filedocumented in this encounter Care Teams Solar Panel Technician Relationship Specialty Start Date End Date Braden Lewis MD [address] [facility] [address] [place] [address] PCP - General Family Medicine 03/19/19 Braden Gonzalez MD [address] [facility] [address] [place] [address] Radiation Oncologist Radiation Oncology 01/12/22 Phi Schwartz MD PhD [address] [place] [id number] Medical Oncologist/Recreational Leader Medical Oncology 01/12/22 documented as of this encounter
--- OUTSIDE RECORDS SUMMARY | 2025-05-17 09:55 | XMS_ITS ---
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 Past Treatment and Therapy Plans Oncology Chemotherapy Treatment Plan Name Start Date Discontinue Date Treatment Medications Discontinue Reason Plan Provider Cycles PACLItaxel / CARBOplatin with Concurrent Radiation: Induction / Weekly - Non-Small Cell Lung 01/26/2022 03/29/2022 CARBOplatin (PARAPLATIN)CAR BOplatin (PARAPLATIN) IVPB in 250 mLPACLitaxel (TAXOL)PACLItax el (TAXOL) 100 ml Therapy Complete Phi Schwartz MD PhD 1 of 1 cycle started Oncology Treatment (2) Plan Name Start Date Discontinue Date Treatment Medications Discontinue Reason Plan Provider Cycles durvalumab consolidation 14 Day Cycles - Lung 03/29/2022 04/10/2023 durvalumab (IMFINZI) IVPB in 100 mL solution Therapy Complete Phi Schwartz MD PhD 26 of 26 cycles started Radiation Treatments * Course [id number]/26/2022 - 03/09/2022 Treatment Period Energy Fraction Dose Fractions Total Dose Plans Planned LT LUNG 01/26/2022 - 03/09/2022 200 30 / 6,000 Reference Points Delivered [id number] 01/26/2022 - 03/09/2022 6,000 Lifetime Dose Tracking * Chemical Lifetime Dose Automatic Entry Manual Entr y Fluoro Time 1.492 minutes 1.492 minutes 0 minutes Air kerma at the reference point (Ka,r) 6.68 mGy 6 .68 mGy 0 mGy
--- OUTSIDE RECORDS SUMMARY | 2025-05-17 09:55 | XMS_ITS | Clinical Summary ---
Author Organization [facility] Address [facility] [place] [address] Care Team Providers Care Admissions Representative Name Role Phone Braden Lewis MD Primary Care Provider Braden Gonzalez MD Unavailable [phone] Phi Schwartz MD PhD Unavailable [phone] Allergies Active Allergy Reactions Criticality Noted Date Comments Morphine Hives Medium 05/06/2019 Medications busPIRone (BUSPAR) 10 mg tablet Take 1 tablet (10 mg total) by mouth 2 (two) times a day 1 9 Active sertraline (ZOLOFT) 100 mg tablet Take 1.5 tablets (150 mg total) by mouth every morning 1 9 Active albuterol (PROAIR RESPICLICK) 90 mcg/actuation inhalerIndicatio ns:Chronic Obstructive Pulmonary Disease Inhale 2 puffs every 6 (six) hours as needed for wheezing Active cholecalciferol (VITAMIN D-3) 2000 unit tablet Take 1 tablet (2,000 Units total) by mouth every morning Active LORazepam (ATIVAN) 0.5 mg tablet Take 1 tablet (0.5 mg total) by mouth 2 (two) times a day 2 Active amLODIPine (NORVASC) 5 mg tablet Take 1 tablet (5 mg total) by mouth daily Active varenicline tartrate (CHANTIX) 1 mg tablet 2 Active levothyroxine (SYNTHROID) 300 mcg tablet Take 1 tablet (300 mcg total) by mouth daily 3 Active Trelegy Ellipta 100-62.5-25 mcg inhaler 4 Active gabapentin (NEURONTIN) 300 mg capsule TAKE 1 CAPSULE BY MOUTH TWICE A DAY 60 capsule 2 5 Active Active Problems Problem Noted Date Diagnosed Date Kidney stone 04/21/2022 Overview (04/21/2022): Added automatically from request for surgery [id number] Personal history of radiation therapy 04/14/2022 Dehydration 03/08/2022 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 01/12/2022 Cancer Staging:Clinical stage from 01/12/2022:Stage IIIC(cT4, cN3, cM0) - Signed by Braden Gonzalez MD on 01/12/2022 Pulmonary nodule 12/16/2021 Encounters Date Type Department Care Team Description 03/25/2025 4:30 PM CDT Clinical Support [facility] [address] [id number] Primary malignant neoplasm of left lung metastatic to other site (HCC) 03/25/2025 4:00 PM CDT Office Visit [facility] [address] [phone] Phi Schwartz MD PhD Primary malignant neoplasm of left lung metastatic to other site (HCC) (Primary Dx) 03/20/2025 6:32 AM CDT - 03/20/2025 11:59 PM CDT Hospital Encounter [facility] [address] [place] [address] Primary malignant neoplasm of left lung metastatic to other site (HCC) Discharge Disposition: Discharge to home or self care from Last 3 Months Immunizations Immunization Administration Dates Next Due Influenza, Quadrivalent, Gina l Culture-based MDCK, Preservative Free, Antibiotic Free, Intramuscular 06/15/2022 Influenza, Quadrivalent, Spl it, Preservative Free, Intramuscular 06/22/2019 Influenza, Unspecified 06/07/2023 ZOSTER Recombinant 02/13/2022,10/24/2021 Surgical History Surgery Date Site/Laterality Comments [place] DELIVERY ONLY 03/2003, 7, 08/1994, 08/1990 Section - x4: BTL with last C section (Added by TW Conv) CHOLECYSTECTOMY 08/28/2015 - 08/27/2016 [place] FLUORO GUIDED LUMBAR PUNCTURE 05/21/2019 Right COLONOSCOPY 08/28/2017 - 08/27/2018 BRONCHOSCOPY 11/2021 PORT PLACEMENT CHEST >5 YEARS 01/28/2022 N/A CYSTOSCOPY W/ URETERAL STENT PLACEMENT and retrieval of stone or laser lithotripsy 2017 Medical History Medical History Date Comments Cyst of right ovary Cyst of righ t ovary - (Added by TW Conv) Diabetes mellitus (HCC) Dxd 2014 ; taken off meds; now diet controlled Thyroid disease Hyperlipidemia Hypertension Dxd 2020 Generalized anxiety disorder Spinal stenosis Chronic low back pain Hemoptysis pt reports histo ry of Cough already in histo ry, denied during assess. on 04/27/22 Tobacco use history of Seborrheic keratosis Pulmonary nodule Cancer (HCC) Left lung CA dx October or November 2021 Lung disease COPD History of chemotherapy complete d mid March 2022 History of radiation therapy com pleted mid March 2022 Immunotherapy current; started after chemo/radiation History of pneumonia 2009 and 2021 Depression Wears glasses History of pancreatitis History of kidney stones current and about 2016 Alcohol abuse per EMR w/elevat ed AST & ALT on 04/12/22 and office noted stated pt reported 3 drinks daily. Pt reported during assess. of 1-2 drinks weekly on 04/27/22 Post-menopausal Hypothyroidism Family History Medical History Relation Name Comments Alzheimer's disease Father Bladder Cancer Father Colon cancer Father Diabetes Father Ovarian cancer Mother Ovarian cancer Other 1 Ovarian Cance r - Mother: at 34yo (Added by TW Conv) Colon cancer Other 2 Malignant Neopl asm, Colon - Father and paternal grandmother (Added by TW Conv) Anesthesia problems Neg Hx Relation Name Status Comments Father Mother Other 1 Other 2 Social History Tobacco Use Types Packs/Day Years Used Date Smoking Tobacco: Former Cigarettes 0 12/23/1996 - 12/23/2021 Smokeless Tobacco: Never Tobacco Cessation:Counseling Given: Not Answered Comments:Started Chantix 12/20/2021 Alcohol Use Standard Drinks/Week Comments Yes 0 (1 standard drink = 0.6 oz pur e alcohol) Social AUDIT-C Answer Date Recorded Frequency of Alcohol Consumption Not on file 03/25/2025 Q2: How many drinks containi ng alcohol do you have on a typical day when you are drinking? 1 or 2 03/25/2025 Q3: How often do you have si x or more drinks on one occasion? Weekly 03/25/2025 Personal Safety Answer Date Recorded Have you ever been in or are you currently in a harmful physical or emotional relationship or is someone making you feel afraid or unsafe? 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 Not on file Not on file Not on file Obstetrics History Last Filed Vital Signs Vital Sign Reading Time Taken Comments Blood Pressure 139/83 03/25/2025 4:03 PM CDT Pulse 84 03/25/2025 4:03 PM CDT Temperature 36.7 C (98 F) 03/25/2025 4:03 PM CDT Respiratory Rate 18 03/25/2025 4:03 PM CDT Oxygen Saturation 94% 03/25/2025 4:03 PM CDT Inhaled Oxygen Concentration - - Weight 64.1 kg (141 lb 5 oz) 03/25/2025 4:03 PM CDT Height 171.5 cm (5' 7.5) 10/01/2024 2:17 PM RN ORTHO Body Mass Index 21.81 10/01/2024 2:17 PM RN ORTHO Plan of Treatment Health Maintenance Due Date Last Done Comments Cervical Cancer Screening 1968 Colon Cancer Screening-Colonoscopy 1968 Depression Screening 1968 Hepatitis C Screening 1968 DTaP/Tdap/Td Vaccine (1 - Tdap) 1979 Hepatitis B Screening 1986 Regular Well Visit/Exam 18-64 1986 Pneumococcal vaccine <65 (1 of 2 - PCV) 1987 Breast Cancer Screening-Mammogram 01/28/2014 013 Covid-19 Vaccine (5 - 2024-2 6 season) 2025 06/15/2022, 08/18/2021, 12/13/2020, Additional history exists Influenza Vaccine (#1) 2025 3, 06/15/2022, 06/22/2019 Zoster Vaccine Completed 02/13/2022, 10/24/2021 Medical Devices Implanted Type Area Child Care Coordinator Device Identifier Shelf Expiration Date Model / Serial / Lot Excela Low Porfile Power Port 8fr 1.6mm 1 Lumen [id number] - [id number] Implanted:Qty: 1 on 01/28/[address] [facility] [employer] 10/12/2026 [id number] / / [id number] Explanted Type Area Child Care Coordinator Device Identifier Shelf Expiration Date Model / Serial / Lot [employer] [id number] 6fr 26cm 145cm Radiopaque Positioner Filiform Flexible Tip - [id number] Implanted:Qty: 1 on 12/29/2023 by Richar Armenta MD at [facility] Explanted:Qty: 1 on 01/03/2024 Stent Right: Ureter [employer] [id number] 10/06/2026 [id number] / / [id number] Description:Patient explante d at home. [employer] Universa 6fr 26cm Radiopaque Positioner Monofilament Tether 2 [id number] - [id number] Implanted:Qty: 1 on 05/09/2022 by Richar Armenta MD at [facility] Explanted:Qty: 1 on 05/26/2022 by Richar Armenta MD [employer] [id number] 03/18/2025 [id number] / / [id number] [employer] Universa 6fr 26cm Radiopaque Positioner Monofilament Tether 2 [id number] - [id number] Implanted:Qty: 1 on 05/09/2022 by Richar Armenta MD at [facility] Explanted:Qty: 1 on 05/26/2022 by Richar Armenta MD [employer] [id number] 01/28/2025 [id number] / / [id number] Procedures Procedure Name Priority Date/Time Associated Diagnosis Comments CT CHEST ABDOMEN W CONTRAST Schedule Routine, Read Routine (OP Routine) 03/20/2025 6:40 AM CDT Primary malignant neoplasm of left lung metastatic to other site (HCC) SCREENING MAMMOGRAM Routine 01/28/2013 10:01 AM CDT from Last 3 Months or Most Recently Relevant to Health Maintenance Results * CT Chest Abdomen W Contrast (03/20/2025 6:40 AM CDT) Anatomical Region Laterality Modality Body N/A Computed Tomogra phy 03/28/2025 1:10 PM CDT Narrative 03/28/2025 1:26 PM CDT EXAM DESCRIPTION: CT CHEST ABDOMEN W CONTRAST REASON FOR STUDY: restaging lung cancer restaging lung cancer, Primary malignant neoplasm of left lung metastatic to other site (HCC) TECHNIQUE: CT scan of the chest and abdomen performed with intravenous and without oral contrast using helical scanning technique with dynamic intravenous contrast injection. Reconstructed coronal and sagittal MPR images reviewed. All images stored on PACS. Automated exposure control was used as a dose optimization technique for this examination. CONTRAST TYPE/DOSE: 91mL of IOVERSOL 350 MG IODINE/ML INTRAVENOUS SYRINGE was injected via the intravenous COMPARISON: 12/24/2024, 09/23/2024, 06/06/2024 and 03/14/2024 REFERENCE: Per ACR white paper recommendations, unless otherwise specified no follow-up imaging is recommended for incidental renal and adrenal lesions per consensus recommendations based on imaging criteria. Further lab evaluation could be pursued based on clinical findings. FINDINGS: CHEST LUNGS: There is background of emphysema, stable from prior examination. Curvilinear opacity within the left perihilar region and mid lung is noted, involving the left upper lobe and superior segment of the left lower lobe, most suggestive of post radiation change. Central peribronchial thickening, and configuration of the central opacity is similar to the prior examination. There is no new nodularity within this region. No new pneumonic consolidation. There is no new suspicious pulmonary nodule within either lung. Linear scarring in the right middle lobe is stable. There are some atelectatic changes in the posterior costophrenic sulci, right greater than left, stable. PLEURA: No effusion. No pneumothorax. MEDIASTINUM/SHRUTI: There are scattered nonenlarged mediastinal and right hilar nodes. No new lymphadenopathy. The left hilum appears grossly stable compared to the prior examination. Mild thickening of the mid esophagus. The distal esophagus is slightly patulous in appearance. HEART: The heart is normal in size without significant pericardial effusion. There are coronary artery calcifications. VASCULATURE CHEST: Thoracic aorta is normal in caliber without dissection. The main pulmonary trunk is normal in caliber. AXILLA: There is no axillary lymphadenopathy. CHEST WALL: No masses. No subcutaneous air. HARDWARE/LIFELINES: Right Hklndi-F-Nhka catheter is again noted. Tip is at the distal SVC MUSCULOSKELETAL CHEST: Thoracic spondylosis. Endplate sclerosis at T7-8 is similar to the previous examination. ABDOMEN LIVER: The liver is mildly enlarged. No suspicious mass. Steatosis. GALLBLADDER: Surgically absent. BILE DUCTS: Within normal limits post cholecystectomy. SPLEEN: Normal size. No focal mass. PANCREAS: Normal peripancreatic inflammatory process or fluid collection. Atrophy of the pancreas, with multiple calcifications, and some dilation of the pancreatic duct, stable. ADRENALS: Normal. KIDNEYS/URINARY TRACT: The kidneys enhance symmetrically. There are renal cysts bilaterally, stable. No new suspicious renal mass. Nonobstructing 9 mm calculus in the lower pole of the right kidney. Previously documented left renal calculus not clearly depicted on this study. Correlate with interval passage. There is no hydronephrosis or proximal hydroureter. GI: The stomach is decompressed. Small bowel loops are partially visualized, normal in caliber. Mild increased stool burden in the visualized colon. PERITONEUM: No abdominal ascites. No mesenteric or retroperitoneal lymphadenopathy. RETROPERITONEUM: No retroperitoneal mass or adenopathy. VASCULATURE ABDOMEN: Abdominal aorta is normal in caliber. Atherosclerotic vascular calcifications. MUSCULOSKELETAL ABDOMEN: No acute osseous abnormality. Degenerative disc disease and endplate degenerative changes greatest at L4-5. OTHER: No significant abnormality. IMPRESSION: 1. Stable post radiation changes within the left lung. No evidence of new metastatic disease. 2. No new lymphadenopathy within the chest or abdomen. 3. Additional findings as above. THIS IS AN ELECTRONICALLY VERIFIED FINAL REPORT 03/28/2025 1:26 PM - Electronically signed by Xochitl Nixon M.D. TW: MARTHA Report ID: [id number] Reading Location: [place] [address] Procedure Note Xochitl Nixon MD - 03/28/2025 EXAM DESCRIPTION: CT CHEST ABDOMEN W CONTRAST REASON FOR STUDY: restaging lung cancer restaging lung cancer, Primary malignant neoplasm of left lung metastaticto other site (HCC) TECHNIQUE: CT scan of the chest and abdomen performed with intravenousand without oral contrast using helical scanning technique with dynamic intravenous contrast injection. Reconstructed coronal and sagittal MPRimages reviewed. All images stored on PACS. Automated exposure control wasused as a dose optimization technique for this examination. CONTRAST TYPE/DOSE: 91mL of IOVERSOL 350 MG IODINE/ML INTRAVENOUSSYRINGE was injected via the intravenous COMPARISON: 12/24/2024, 09/23/2024, 06/06/2024 and 03/14/2024 REFERENCE: Per ACR white paper recommendations, unless otherwise specifiedno follow-up imaging is recommended for incidental renal and adrenal lesionsper consensus recommendations based on imaging criteria. Further labevaluation could be pursued based on clinical findings. FINDINGS: CHEST LUNGS: There is background of emphysema, stable from prior examination. Curvilinear opacity within the left perihilar region and mid lung isnoted, involving the left upper lobe and superior segment of the left lower lobe, most suggestive of post radiation change. Central peribronchialthickening, and configuration of the central opacity is similar to the priorexamination. There is no new nodularity within this region. No new pneumonic consolidation. There is no new suspicious pulmonarynodule within either lung. Linear scarring in the right middle lobe is stable. There are some atelectatic changes in the posterior costophrenic sulci,right greater than left, stable. PLEURA: No effusion. No pneumothorax. MEDIASTINUM/SHRUTI: There are scattered nonenlarged mediastinal and righthilar nodes. No new lymphadenopathy. The left hilum appears grossly stable compared to the prior examination. Mild thickening of the mid esophagus.The distal esophagus is slightly patulous in appearance. HEART: The heart is normal in size without significant pericardialeffusion. There are coronary artery calcifications. VASCULATURE CHEST: Thoracic aorta is normal in caliber withoutdissection. The main pulmonary trunk is normal in caliber. AXILLA: There is no axillary lymphadenopathy. CHEST WALL: No masses. No subcutaneous air. HARDWARE/LIFELINES: Right Baigwl-T-Hfbp catheter is again noted. Tip isat the distal SVC MUSCULOSKELETAL CHEST: Thoracic spondylosis. Endplate sclerosis at T7-8is similar to the previous examination. ABDOMEN LIVER: The liver is mildly enlarged. No suspicious mass. Steatosis. GALLBLADDER: Surgically absent. BILE DUCTS: Within normal limits post cholecystectomy. SPLEEN: Normal size. No focal mass. PANCREAS: Normal peripancreatic inflammatory process or fluid collection. Atrophy of the pancreas, with multiple calcifications, and some dilationof the pancreatic duct, stable. ADRENALS: Normal. KIDNEYS/URINARY TRACT: The kidneys enhance symmetrically. There arerenal cysts bilaterally, stable. No new suspicious renal mass. Nonobstructing9 mm calculus in the lower pole of the right kidney. Previously documentedleft renal calculus not clearly depicted on this study. Correlate withinterval passage. There is no hydronephrosis or proximal hydroureter. GI: The stomach is decompressed. Small bowel loops are partiallyvisualized, normal in caliber. Mild increased stool burden in the visualized colon. PERITONEUM: No abdominal ascites. No mesenteric or retroperitoneal lymphadenopathy. RETROPERITONEUM: No retroperitoneal mass or adenopathy. VASCULATURE ABDOMEN: Abdominal aorta is normal in caliber.Atherosclerotic vascular calcifications. MUSCULOSKELETAL ABDOMEN: No acute osseous abnormality. Degenerative disc disease and endplate degenerative changes greatest at L4-5. OTHER: No significant abnormality. IMPRESSION: 1. Stable post radiation changes within the left lung. No evidence ofnew metastatic disease. 2. No new lymphadenopathy within the chest or abdomen. 3. Additional findings as above. THIS IS AN ELECTRONICALLY VERIFIED FINAL REPORT 03/28/2025 1:26 PM - Electronically signed by Xochitl Nixon M.D. TW: TW Report ID: [id number] Reading Location: [id number] Phi Schwartz MD PhD IMG CT PROCEDURES Fin al Result * Screening Mammogram (01/28/2013 10:01 AM CDT) Anatomical Region Laterality Modality Breast N/A Mammography 01/28/2013 10:0 1 AM CDT Narrative 01/29/2013 9:04 AM CDT STEFAN DIETZ M.D. FINAL REPORT ACC# Date Time Exam [id number] Jan 28, 2013 10:01:00 BMV [id number] [place] Screening Mamm Technologist(s): Tiffanie Jorgensen; ; EXAMINATION: Mammogram Findings: A Full-Field Digital Screening Mammogram was performed. Views obtained: bilateral craniocaudal; bilateral mediolateral oblique. Computer Aided Detection was performed with Sorbent Green 1.3 version 9.3. This is a baseline study. The breasts are heterogeneously dense which could obscure a lesion on mammography. There is no suspicious abnormality in either breast. IMPRESSION: Annual screening mammography is recommended. OVERALL FINAL ASSESSMENT: BI-RADS CATEGORY 1: Negative. Requested By: Referral,Self Dictated By: STEFAN DIETZ M.D. on Jan 29 2013 9:04A This document has been electronically signed by: STEFAN DIETZ M.D. on Jan 29 2013 9:04A Procedure Note Provider, MD Kumar - 12/29/2016 STEFAN DIETZ M.D. FINAL REPORT ACC# Date Time Exam [id number] Jan 28, 2013 10:01:00 BMV [id number] [place] Screening Mamm Technologist(s): Tiffanie Jorgensen; ; EXAMINATION: Mammogram Findings: A Full-Field Digital Screening Mammogram was performed. Views obtained: bilateral craniocaudal; bilateral mediolateral oblique. Computer Aided Detection was performed with Sorbent Green 1.3 version 9.3. This is a baseline study. The breasts are heterogeneously dense which could obscure a lesion on mammography. There is no suspicious abnormality in either breast. IMPRESSION: Annual screening mammography is recommended. OVERALL FINAL ASSESSMENT: BI-RADS CATEGORY 1: Negative. Requested By: Referral,Self Dictated By: STEFAN DIETZ M.D. on Jan 29 2013 9:04A This document has been electronically signed by: STEFAN DIETZ M.D. on Jan 29 2013 9:04A Historical Provider MD CODY MAMMO PROCEDURES Lexie l Result from Last 3 Months or Most Recently Relevant to Health Maintenance Insurance [facility] H[facility] AET COVENTRY HMO/POS [facility] Advance Directives For more information, please contact: [phone] * Full Code (Latest Code Status on File) Date Activated Date Inactivated Comments 01/28/2022 8:52 AM 01/29/2022 4:52 AM Care Teams Admissions Representative Relationship Specialty Start Date End Date Braden Lewis MD [address] [facility] [address] [place] [address] PCP - General Family Medicine 03/19/19 Braden Gonzalez MD [address] [facility] [address] [place] [address] Radiation Oncologist Radiation Oncology 01/12/22 Phi Schwartz MD PhD [address] [place] [address] [address] [place] [address] Medical Oncologist/Land Surveyor Manager Medical Oncology 01/12/22
--- OUTSIDE RECORDS SUMMARY | 2025-05-17 09:55 | XMS_ITS | Clinical Summary ---
Author Organization [facility] Address [address] 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 This disclosure is being madepursuant to the Care Everywhere program and may not contain all information available regarding this patient. Last updated 18.[facility] Allergies Active Allergy Reactions Criticality Noted Date Comments Morphine GI Discomfort 06/24/2022 Medications * Be aware that medications may not be up to date on this document. Alwaysverify current medications with the patient. diphenhydrAMINE (Benadryl) 25 MG capsule Take 1 (one) capsule by mouth every 4 hours as needed for Itching 30 capsule 06/25/2022 Active ondansetron (Zofran) 4 MG tablet Take 1 (one) tablet by mouth every 6 hours as needed for Nausea/Vomit ing 10 tablet 06/25/2022 Active traMADol (Ultram) 50 MG tablet Take 1 (one) tablet by mouth 2 times daily as needed for Pain 50 tablet 07/27/2022 Active Active Problems Problem Noted Date Diagnosed Date Closed displaced spiral fracture of shaft of lef t humerus 06/29/2022 Social History Tobacco Use Types Packs/Day Years Used Date Smoking Tobacco: Never Smokeless Tobacco: Never Tobacco Cessation:Counseling Given: Not Answered Alcohol Use Standard Drinks/Week Comments Not Currently 0 (1 standard drink = 0.6 oz pur e alcohol) Comments Unknown Sex and Gender Information Value Date Recorded Sex Assigned at Not on file Legal 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 Gender Identity Not on file Sexual Orientation Not on file Last Filed Vital Signs Vital Sign Reading Time Taken Comments Blood Pressure 111/68 06/25/2022 4:28 AM CDT Pulse 67 06/25/2022 4:28 AM CDT Temperature 36.5 C (97.7 F) 06/24/2022 11:13 PM CDT Respiratory Rate 15 06/25/2022 4:28 AM CDT Oxygen Saturation 100% 06/25/2022 4:28 AM CDT Inhaled Oxygen Concentration - - Weight 54.9 kg (121 lb) 03/22/2023 9:53 AM CDT Height 172.7 cm (5' 8) 03/22/2023 9:53 AM CDT Body Mass Index 18.4 03/22/2023 9:53 AM CDT Plan of Treatment Health Maintenance Due Date Last Done Comments COLOGUARD (AGES 45-75) - COLON CA SCREENING 1968 COLON MONITORING 1968 COLONOSCOPY - COLON CA SCREENING 1968 CT COLONOGRAPHY - COLON CA SCREENING 1968 Colorectal Cancer Screening 1968 FIT - COLON CA SCREENING 1968 FLEX SIG - COLON CA SCREENING 1968 LIPID TESTING 1968 MAMMOGRAM 1968 HIV SCREENING 1983 HEPATITIS C SCREENING 06/07/1986 DTAP/TDAP/TD VACCINES (1 - Tdap) 1987 HEPATITIS B VACCINE (1 of 3 - 19+ 3-dose series) 1987 PAP SMEAR 1989 PNEUMOCOCCAL VACCINE 50+ (1 of 1 - PCV) 2018 ZOSTER VACCINE (1 of 2) 2018 DEPRESSION SCREENING 08/28/2024 COVID-19 VACCINE ( - season) 2025 06/15/2022, 08/18/2021, 12/13/2020, Additional history exists INFLUENZA VACCINE (#1) 2025 06/15/2022, 2018 HIB VACCINE Aged Out No longer eligi ble based on patient's age to complete this topic HPV VACCINE Aged Out No longer eligi ble based on patient's age to complete this topic MENINGOCOCCAL (Group B) VACCINE SHARED DECISION-MAKING Aged Out No longer eligible based on patient's age to complete this topic MENINGOCOCCAL GROUPS A/C/Y/W VACCINE Aged Out No longer eligible based on patient's age to complete this topic Insurance AETNA AETNA AETNA SELF PAY NO INSURANCE Member Subscriber Plan / Payer (Ef fective for All Dates) Name:Cathi Amin Member ID:Not on file Relation to Subscriber:Not on file Name:CATHI AMIN Subscriber ID:Not on file Address: [address] [place] [address] Payer ID:Not on file Group ID:Not on file Type:Self Pay Address: [place], [place] AETNA SELF PAY NO INSURANCE Member Subscriber Plan / Payer (Ef fective for All Dates) Name:Cathi Amin Member ID:Not on file Relation to Subscriber:Not on file Name:CATHI AMIN Subscriber ID:Not on file Address: [address] [place] [address] Payer ID:Not on file Group ID:Not on file Type:Self Pay Address: [place], [place] AETNA SELF PAY NO INSURANCE Member Subscriber Plan / Payer (Ef fective for All Dates) Name:Cathi Amin Member ID:Not on file Relation to Subscriber:Not on file Name:CATHI AMIN Subscriber ID:Not on file Address: [address] [place] [id number] Payer ID:Not on file Group ID:Not on file Type:Self Pay Address: [place], [place]
== END 2025-05-17 09:49 | disposition home or self-care (01) ==
PROVIDERS: PCP Family Medicine
DX: M19.011 Primary osteoarthritis, right shoulder (principal); Z95.828 Presence of other vascular implants and grafts
CPT/HCPCS: 73030